=== PATIENT | male | born 1945 | race Caucasian/White ===

== ENCOUNTER 2018-12-18 20:52 | Inpatient (IN) | payer MEDICARE, BC ==
[~2018-12-18] VITALS: Ht 170.2 cm; Wt 71.2 kg
[2018-12-18 23:30] VITALS: BP 111/72
[2018-12-18 23:45] VITALS: BP 112/62
[2018-12-18 23:53] LABS: BASE EXCESS ABG -4 mmol/L (-3-3); HCO3 ABG 20 mmol/L (21-28); PCO2 ABG 34 mmHg (35-46); PO2 ABG 60 mmHg (65-108)
[2018-12-18 23:57] LABS: FIO2 ABG 34
[2018-12-18 23:59] VITALS: BP 119/66
[2018-12-19] VITALS (20 sets, daily range): BP systolic 109–171; BP diastolic 60–86
[2018-12-19] MEDS ORDERED: PIP/TAZO PER PHARMACY MC PRN (00:15)
[2018-12-19] MEDS ORDERED: levOFLOXacin PER PHARMACY. MC PRN (00:15)
--- NOTE | 2018-12-19 00:36 | NUR ---
Patient transferred from [place] ICU to [place] ICU room 105. Arrived via gurney accompanied by two EMT's. 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 Vital signs stable at this time. Family notified of patients admission to hospital. Patient oreitned to call light/ T.V. remote, ICU policies, safety policies. Admission assessment complete, see for details.
[2018-12-19] MEDS: VANCOMYCIN PER PHARMACY MC PRN ×2 (01:03→15:09)
[2018-12-19 01:06] LABS: BASO % 0 % (0-3); EOS % 0 % (0-3); HEMATOCRIT 34.7 % (39.0-53.0); HEMOGLOBIN 11.7 g/dL (13.0-17.5); LYMPH # 0.7 x10^3/uL (1.0-4.8); LYMPH % 12 % (24-48); MEAN CORPUSCULAR HEMOGLOBIN 30 pg (25-35); MEAN CORPUSCULAR HGB CONC 34 g/dL (31-37); MEAN CORPUSCULAR VOLUME 90 fL (79-100); MONO # 0.6 x10^3/uL (0.0-1.1); MONO % 11 % (0-9); NEUT # 4.4 x10^3uL (1.8-7.7); NEUT % 77 % (31-73); PLATELET COUNT 149 x10^3/uL (140-400); RED BLOOD COUNT 3.86 x10^6/uL (4.30-5.70); WHITE BLOOD COUNT 5.8 x10^3/uL (4.0-11.0)
--- NOTE | 2018-12-19 01:13 | NUR ---
Pharmacy Vancomycin Dosing Note S:Consulted to monitor and dose vancomycin started 12/18/18. O:JUANA BARBER is a 73 year old M with Sepsis . Height: 5 feet, 7 inches Weight: 69.761356 kg Friendly Body Weight: 66.10 Adjusted Body Weight: 67.58 Dosing Weight: Actual Other Antibiotics: LEVAQUIN 750MG IV Q24H ZOSYN 4.5GM IV Q8H LABS: Last BUN: 22 LABS FROM [facility] 12/18/18 EVENING Last Creatinine: 1.2 Creatinine Clearance: 52.6 mL/min Last WBC: 7.2 Last Procalcitonin: 0.17 Tmax (past 24 hours): Microbiology: I/O: 1350/30 Drug Levels: Last level: on at Last dose given at Vancomycin Dosing: Loading Dose: 1750MG IV X1 12/18/18 2200 AT [facility] Dosing Weight: Actual Target Trough: 15-20 A: Based on: Actual Wt and CrCl P: 1. 12/19/18 2200 Vancomycin 1000 mg IV q24h 2. Follow up Trough level on 12/20/18 at 2130 3. Pharmacy will continue to monitor, follow and adjust therapy as needed. JO-ANN SU RPH, 12/19/18 0113 Signed: 12/19/18 at 0114 by JO-ANN SU RPH PHA
[2018-12-19 01:29] LABS: ALBUMIN/GLOBULIN RATIO 0.9 (1.0-1.7); CALCIUM 8.5 mg/dL (8.5-10.1); CREATININE 1.7 mg/dL (0.7-1.3); GFR 39.8; POTASSIUM 5.1 mmol/L (3.5-5.1); TOTAL BILIRUBIN 0.5 mg/dL (0.2-1.0); TOTAL PROTEIN 6.4 g/dL (6.4-8.2)
[2018-12-19] MEDS: PIPERACILLIN/TAZOBACTAM 4.5 GM in IV NORMAL SALINE 100ML 100 ML IV SCH ×2 (05:46→13:55)
[2018-12-19] MEDS ORDERED: HYDROmorphone 2 MG/ML VIAL IVP PRN (06:30)
[2018-12-19] MEDS ORDERED: ONDANSETRON PF 4 MG/2 ML VIAL. IV PRN ×2 (06:30→15:15)
[2018-12-19] MEDS ORDERED: PANTOPRAZOLE IV PUSH 40 MG VIAL. IVP SCH (07:30)
[2018-12-19] MEDS: IPRATRPIUM/ALBUTEROL 0.5/2.5MG 3 ML NEBU. NEB SCH ×4 (08:07→20:40)
--- NOTE | 2018-12-19 08:37 | RAD ---
Portable chest, 12/19/2018: HISTORY: Pneumonia Comparison is made to yesterday's study. The heart is at the upper limits of normal in size. There is calcific plaquing the aorta. There is improved aeration of the lung bases. There is persistent mild prominence of the pulmonary markings, particularly in the right base. There is no evidence of pleural fluid. No new abnormality is detected. IMPRESSION: Improved aeration of the lung bases. Electronically signed by: Len Wyatt MD (12/19/2018 8:33 AM) [facility]
[2018-12-19 09:53] LABS: BILIRUBIN,URINE NEGATIVE (NEG); CLARITY,URINE CLEAR; COLOR,URINE YELLOW; NITRITE,URINE NEGATIVE (NEG); PH,URINE 6.5; PROTEIN,URINE NEGATIVE (NEG-TRACE)
[2018-12-19 10:13] LABS: BACTERIA,URINE 0 /HPF (0-FEW); RBC,URINE 0 /HPF (0-2); SQUAMOUS EPITHELIAL CELL,UR OCC /LPF; WBC,URINE 0 /HPF (0-4)
[2018-12-19] MEDS ORDERED: MORP1SYR2 IV (10:14)
[2018-12-19] MEDS ORDERED: POLY2500 PO (10:14)
[2018-12-19] MEDS ORDERED: [UNRECOGNIZED DRUG - CODE] IJ (10:14)
[2018-12-19] MEDS ORDERED: OLAN2.5T3 PO (10:14)
[2018-12-19] MEDS ORDERED: LINZESS145 MCG PO (10:14)
[2018-12-19] MEDS ORDERED: ASPI-612 PO (10:14)
[2018-12-19] MEDS ORDERED: METO25TA4 PO (10:14)
[2018-12-19] MEDS ORDERED: [UNRECOGNIZED DRUG - CODE] IV (10:14)
[2018-12-19] MEDS ORDERED: LACT1CAP2 PO (10:14)
[2018-12-19] MEDS ORDERED: OLAN5TAB3 PO (10:14)
[2018-12-19] MEDS ORDERED: ATOR20TA58 PO (10:14)
[2018-12-19] MEDS ORDERED: LANS30CA PO (10:14)
[2018-12-19] MEDS ORDERED: LISI-334 PO (10:14)
[2018-12-19] MEDS ORDERED: CITA40TA12 PO (10:14)
[2018-12-19] MEDS: DOXYCYCLINE HYCLATE 100 MG TABLET PO SCH ×2 (10:21→20:55)
--- NOTE | 2018-12-19 10:43 | PDOC1 ---
History and Physical Date of Admission Date of Admission DATE: 12/19/18 TIME: 10:43 Identification/Chief Complaint Chief Complaint DIRECT TRANSFER FROM [facility] PUL[facility] STATUS, SEPSIS, PULM AND ID CONSULTS, ICU BED long hx copd became septic and transfr to higher level of care Past Medical History Cardiovascular: HTN, Hyperlipidemia Pulmonary: COPD GI: GERD Psych: Addictions Musculoskeletal: Osteoarthritis Renal/: No pertinent hx Dermatology: No pertinent hx Family History Family History: Alcohol Abuse, High Cholestrol, Hypertension Social History Smoke: Quit ALCOHOL: none Drugs: None, Other (remote alcohol abuse, 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[place]) Current Medications Current Medications Current Medications Sodium Chloride 1,000 ml @ 60 mls/hr [id number] IV Last administered on at 00:00; Start 12/18/18 at 23:45 Piperacillin Sod/ Tazobactam Sod (Zosyn Per Pharmacy) 1 each PRN DAILY PRN MC SEE COMMENTS; Start 12/19/18 at 00:15 Levofloxacin/ Dextrose (Levaquin Per Pharmacy) 1 each PRN DAILY PRN MC SEE COMMENTS; Start 12/19/18 at 00:15 Vancomycin HCl (Vanco Per Pharmacy) 1 each PRN DAILY PRN MC SEE COMMENTS Last administered on 12/19/18at 01:03; Start 12/19/18 at 00:30 Levofloxacin/ Dextrose 150 ml @ 100 mls/hr Q24H IV ; Start 12/19/18 at 19:00; Stop 12/19/18 at 19:00; Status DC Piperacillin Sod/ Tazobactam Sod 4.5 gm/Sodium Chloride 100 ml @ 200 mls/hr Q8HRS IV Last administered on 12/19/18at 05:46; Start 12/19/18 at 06:00 Vancomycin HCl 1 gm/Sodium Chloride 250 ml @ 250 mls/hr Q24H IV ; Start at 22:00 Vancomycin HCl (Vancomycin Trough Level) 1 each 1X ONCE MC ; Start 12/20/18 at 21:30; Stop 12/20/18 at 21:31 Albuterol/ Ipratropium (Duoneb) 3 ml RTQID NEB Last administered on 12/19/18at 08:07; Start 12/19/18 at 08:00 Hydromorphone HCl (Dilaudid) 0.5 mg PRN Q4HRS PRN IVP PAIN; Start 12/19/18 at 06:30 Ondansetron HCl (Zofran) 4 mg PRN Q6HRS PRN IV NAUSEA/VOMITING; Start 12/19/18 at 06:30 Pantoprazole Sodium (PROTONIX VIAL for IV PUSH) 40 mg DAILYAC IVP Last administered on 12/19/18at 08:05; Start 12/19/18 at 07:30 Doxycycline Hyclate (Vibra-Tab) 100 mg BID PO Last administered on 12/19/18at 10 :21; Start 12/19/18 at 09:30 Active Scripts Active Reported Polyethylene Glycol 3350 2,500 Gm Powder 17 Gm PO BIDAC Zyprexa (Olanzapine) 5 Mg Tablet 5 Mg PO DAILY Zyprexa (Olanzapine) 2.5 Mg Tablet 1 Tab PO QHS Morphine 1 mg/2 ml Syringe (Morphine Sulfate/Pf) 1 Mg/2 Ml Syringe 2 Mg IV Q2H Metoprolol Tartrate 25 Mg Tablet 0.5 Tab PO BID Lisinopril 20 Mg Tablet 1 Tab PO DAILY Linzess (Linaclotide) 145 Mcg Capsule 145 Mcg PO DAILY07 Lansoprazole 30 Mg Capsule.dr 30 Mg PO DAILY PRN Acidophilus (Lactobacillus Acidophilus) 1 Each Capsule 1 Each PO BID PRN Heparin 5,000 Unit/1,000 ml-Ns (Heparin Sod,Porcine/0.9 % NaCl) 5,000 Unit/1000 Ml Iv.soln 5,000 Unit IV Q8HRS PRN Lanoxin (Digoxin) 250 Mcg/1 Ml Ampul 250 Mcg IJ PRN Q6HRS PRN Celexa (Citalopram Hydrobromide) 40 Mg Tablet 1 Tab PO DAILY Atorvastatin Calcium 20 Mg Tablet 20 Mg PO HS PRN Aspirin Ec (Aspirin) 81 Mg Tablet.dr 81 Mg PO QODAY Allergies Allergies: Coded Allergies: amlodipine (Verified Allergy, Intermediate, 12/21/18) risperidone (Verified Allergy, Intermediate, 12/21/18) ROS Review of System 14 PT ROS OTHERWISE NEG General: YES: Chills, Fatigue PSYCHOLOGICAL ROS: YES: Anxiety ALLERGY AND IMMUNOLOGY: No: Hives, Insect Bite Sensitivity, Itchy/Watery Eyes, Nasal Congestion, Post Nasal Drip, Seasonal Allergies, Other Hematological and Lymphatic: No: Bleeding Problems, Blood Clots, Blood Transfusions, Brusing, Night Sweats, Pallor, Swollen Lymph Nodes, Other ENDOCRINE: No: Breast Changes, Galactorrhea, Hair Pattern Changes, Hot Flashes , Malaise/lethargy, Mood Swings, Palpitations, Polydipsia/polyuria, Skin Changes , Temperature Intolerance, Unexpected Weight Changes, Other Respiratory: YES: Cough, Shortness of breath, SOB with excertion, Sputum Changes, Wheezing Gastrointestinal: No Nausea, No Vomiting, No Abdominal Pain, No Diarrhea, No Constipation, No Melena, No Hematochezia, No Other Genitourinary: No Dysuria, No Frequency, No Incontinence, No Hematuria, No Retention, No Discharge, No Urgency, No Pain, No Flank Pain, No Other, No , No , No , No , No , No , No Musculoskeletal: Yes Joint Stiffness; No Gait Disturbance, No Joint Pain, No Joint Swelling, No Muscle Pain, No Muscular Weakness, No Pain In:, No Swelling In:, No Other Neurological: No Behavorial Changes, No Bowel/Bladder ControlChng, No Confusion , No Dizziness, No Gait Disturbance, No Headaches, No Impaired Coord/balance, No Memory Loss, No Numbness/Tingling, No Seizures, No Speech Problems, No Tremors, No Visual Changes, No Weakness, No Other Physical Exam General: Alert, Oriented X3, Cooperative, mild distress HEENT: Atraumatic, PERRLA, EOMI Lungs: Other (SCATTERED CRACKLES) Heart: S1S2, RRR, no thrills Breasts: Not examined Abdomen: Normal bowel sounds, Soft Rectal Exam: not examined PELVIC: Examination not indicated Extremities: No cyanosis Neuro: Normal speech, Cranial nerves 3-12 NL Psych/Mental Status: Mental status NL, Mood NL Vitals Vitals Vital Signs Date Time Temp Pulse Resp B/P (MAP) Pulse Ox O2 Delivery O2 Flow Rate FiO2 12/19/18 08:10 95 Nasal Cannula 3.0 12/19/18 08:00 76 166/71 (102) 12/19/18 07:00 97.9 97.9 12/18/18 23:30 26 Labs Labs Laboratory Tests Test 12/18/18 23:49 12/19/18 00:45 12/19/18 09:10 Arterial Blood pH 7.39 (7.35-7.45) Arterial Blood pCO2 at Patient Temp 34 mmHg (35-46) Arterial Blood pO2 at Patient Temp 60 mmHg (65-108) Arterial Blood HCO3 20 mmol/L (21-28) Arterial Blood Base Excess -4 mmol/L (-3-3) FiO2 34 White Blood Count 5.8 x10^3/uL (4.0-11.0) Red Blood Count 3.86 x10^6/uL (4.30-5.70) Hemoglobin 11.7 g/dL (13.0-17.5) Hematocrit 34.7 % (39.0-53.0) Mean Corpuscular Volume 90 fL (79-100) Mean Corpuscular Hemoglobin 30 pg (25-35) Mean Corpuscular Hemoglobin Concent 34 g/dL (31-37) Red Cell Distribution Width 15.0 % (11.5-14.5) Platelet Count 149 x10^3/uL (140-400) Neutrophils (%) (Auto) 77 % (31-73) Lymphocytes (%) (Auto) 12 % (24-48) Monocytes (%) (Auto) 11 % (0-9) Eosinophils (%) (Auto) 0 % (0-3) Basophils (%) (Auto) 0 % (0-3) Neutrophils # (Auto) 4.4 x10^3uL (1.8-7.7) Lymphocytes # (Auto) 0.7 x10^3/uL (1.0-4.8) Monocytes # (Auto) 0.6 x10^3/uL (0.0-1.1) Eosinophils # (Auto) 0.0 x10^3/uL (0.0-0.7) Basophils # (Auto) 0.0 x10^3/uL (0.0-0.2) Sodium Level 134 mmol/L (136-145) Potassium Level 5.1 mmol/L (3.5-5.1) Chloride Level 100 mmol/L (98-107) Carbon Dioxide Level 24 mmol/L (21-32) Anion Gap 10 (6-14) Blood Urea Nitrogen 37 mg/dL (8-26) Creatinine 1.7 mg/dL (0.7-1.3) Estimated GFR (Cockcroft-Gault) 39.8 BUN/Creatinine Ratio 22 (6-20) Glucose Level 87 mg/dL (70-99) Lactic Acid Level 1.0 mmol/L (0.4-2.0) Calcium Level 8.5 mg/dL (8.5-10.1) Total Bilirubin 0.5 mg/dL (0.2-1.0) Aspartate Amino Transf (AST/SGOT) 17 U/L (15-37) Alanine Aminotransferase (ALT/SGPT) 18 U/L (16-63) Alkaline Phosphatase 80 U/L (46-116) Total Protein 6.4 g/dL (6.4-8.2) Albumin 3.0 g/dL (3.4-5.0) Albumin/Globulin Ratio 0.9 (1.0-1.7) Urine Collection Type Unknown Urine Color Yellow Urine Clarity Clear Urine pH 6.5 Urine Specific [place] 1.015 Urine Protein Negative mg/dL (NEG-TRACE) Urine Glucose (UA) Negative mg/dL (NEG) Urine Ketones (Stick) Negative mg/dL (NEG) Urine Blood Negative (NEG) Urine Nitrite Negative (NEG) Urine Bilirubin Negative (NEG) Urine Urobilinogen Dipstick 1.0 mg/dL (0.2 mg/dL) Urine Leukocyte Esterase Negative (NEG) Urine RBC 0 /HPF (0-2) Urine WBC 0 /HPF (0-4) Urine Squamous Epithelial Cells Occ /LPF Urine Bacteria 0 /HPF (0-FEW) Laboratory Tests Test 12/18/18 23:49 12/19/18 00:45 12/19/18 09:10 Arterial Blood pH 7.39 (7.35-7.45) Arterial Blood pCO2 at Patient Temp 34 mmHg (35-46) Arterial Blood pO2 at Patient Temp 60 mmHg (65-108) Arterial Blood HCO3 20 mmol/L (21-28) Arterial Blood Base Excess -4 mmol/L (-3-3) FiO2 34 White Blood Count 5.8 x10^3/uL (4.0-11.0) Red Blood Count 3.86 x10^6/uL (4.30-5.70) Hemoglobin 11.7 g/dL (13.0-17.5) Hematocrit 34.7 % (39.0-53.0) Mean Corpuscular Volume 90 fL (79-100) Mean Corpuscular Hemoglobin 30 pg (25-35) Mean Corpuscular Hemoglobin Concent 34 g/dL (31-37) Red Cell Distribution Width 15.0 % (11.5-14.5) Platelet Count 149 x10^3/uL (140-400) Neutrophils (%) (Auto) 77 % (31-73) Lymphocytes (%) (Auto) 12 % (24-48) Monocytes (%) (Auto) 11 % (0-9) Eosinophils (%) (Auto) 0 % (0-3) Basophils (%) (Auto) 0 % (0-3) Neutrophils # (Auto) 4.4 x10^3uL (1.8-7.7) Lymphocytes # (Auto) 0.7 x10^3/uL (1.0-4.8) Monocytes # (Auto) 0.6 x10^3/uL (0.0-1.1) Eosinophils # (Auto) 0.0 x10^3/uL (0.0-0.7) Basophils # (Auto) 0.0 x10^3/uL (0.0-0.2) Sodium Level 134 mmol/L (136-145) Potassium Level 5.1 mmol/L (3.5-5.1) Chloride Level 100 mmol/L (98-107) Carbon Dioxide Level 24 mmol/L (21-32) Anion Gap 10 (6-14) Blood Urea Nitrogen 37 mg/dL (8-26) Creatinine 1.7 mg/dL (0.7-1.3) Estimated GFR (Cockcroft-Gault) 39.8 BUN/Creatinine Ratio 22 (6-20) Glucose Level 87 mg/dL (70-99) Lactic Acid Level 1.0 mmol/L (0.4-2.0) Calcium Level 8.5 mg/dL (8.5-10.1) Total Bilirubin 0.5 mg/dL (0.2-1.0) Aspartate Amino Transf (AST/SGOT) 17 U/L (15-37) Alanine Aminotransferase (ALT/SGPT) 18 U/L (16-63) Alkaline Phosphatase 80 U/L (46-116) Total Protein 6.4 g/dL (6.4-8.2) Albumin 3.0 g/dL (3.4-5.0) Albumin/Globulin Ratio 0.9 (1.0-1.7) Urine Collection Type Unknown Urine Color Yellow Urine Clarity Clear Urine pH 6.5 Urine Specific [place] 1.015 Urine Protein Negative mg/dL (NEG-TRACE) Urine Glucose (UA) Negative mg/dL (NEG) Urine Ketones (Stick) Negative mg/dL (NEG) Urine Blood Negative (NEG) Urine Nitrite Negative (NEG) Urine Bilirubin Negative (NEG) Urine Urobilinogen Dipstick 1.0 mg/dL (0.2 mg/dL) Urine Leukocyte Esterase Negative (NEG) Urine RBC 0 /HPF (0-2) Urine WBC 0 /HPF (0-4) Urine Squamous Epithelial Cells Occ /LPF Urine Bacteria 0 /HPF (0-FEW) Images Images Video dysphasia study, 12/20/2018: History: Dysphasia The swallowing mechanism was examined fluoroscopically in the lateral projection with the patient ingested a variety of food materials mixed with barium. 1.2 minutes of fluoroscopy time was utilized. One video fluoroscopic loop was recorded by a member of the speech Department. When ingesting the thin liquid barium, the nectar consistency material and the honey thickened material there was a delay in initiation of pharyngeal peristalsis with laryngeal penetration and mild intermittent odin aspiration. There was also mild delayed laryngeal penetration and aspiration related to vallecular and piriform sinus residue. IMPRESSION: Disordered swallowing mechanism with aspiration as described above. DICTATED and SIGNED BY: LEN DIAS MD DATE: 12/20/181122 PATIENT: ODIN BARBER ACCT: [id number] LOC: [address] [place] [address] U : [id number] AGE/SX: 73/M ROOM: 526 REG : 12/18/[address]: RAMOS HERNANDEZ MD : 1945 BED: 1 DIS : STATUS: ADM IN TLOC: SPEC #: [id number] EL: 12/19/18 STATUS: RES REQ #: [id number] RECD: 12/19/[address] [facility] [address]: RAMOS HERNANDEZ MD SOURCE: BLOOD ENTR: 12/19/[address] [facility] [address]: NICKOLAS GARZON MD [facility]: TALAT PAGAN MD, SABATO MD ORDERED: BCULT Procedure Result BLOOD CULTURE Preliminary NO GROWTH AFTER 1 DAY SEX: M EXAM STATUS: ADM IN ORD. PHYSICIAN: RAMOS HERNANDEZ MD REASON: pneumonia PROCEDURE: PORTABLE CHEST 1V Portable chest, 12/19/2018: HISTORY: Pneumonia Comparison is made to yesterday's study. The heart is at the upper limits of normal in size. There is calcific plaquing the aorta. There is improved aeration of the lung bases. There is persistent mild prominence of the pulmonary markings, particularly in the right base. There is no evidence of pleural fluid. No new abnormality is detected. IMPRESSION: Improved aeration of the lung bases. Electronically signed by: Len Dias MD (12/19/2018 8:33 AM) [facility] DICTATED and SIGNED BY: LEN DIAS MD DATE: 12/19/18 0833 VTE Prophylaxis Ordered VTE Prophylaxis Devices: Yes VTE Pharmacological Prophylaxi: Yes Assessment/Plan Assessment/Plan IMPRESSION 1. RECURRENT ASPIRATION PNEUMONIA Disordered swallowing mechanism with aspiration persistent mild prominence of the pulmonary markings, particularly in the right base. 2. COPD 3. HX BENNETT'S esophagus 4. REMOTE ALCOHOL ABUSE 5. SEPSIS 6. WEAKNESS 7. Remote tobacco abuse 8. acute hypoxic resp failure plan iv antibiotics, add iv vanc, ZOSYN, LEVAQUIN ID CONSULT PULM CONSULT ASPIRATION PRECAUTIONS ICU BED DVT PROPHYLAXIS BLOOD AND SPUTUM CULTURES O2 SUPPORT speech therapy PT/OT 35 MIN CC TIME RAMOS HERNANDEZ MD Dec 19, 2018 10:43
--- NOTE | 2018-12-19 10:49 | PDOC ---
PULMONARY PROGRESS NOTES Vitals Vital Signs Date Time Temp Pulse Resp B/P (MAP) Pulse Ox O2 Delivery O2 Flow Rate FiO2 12/19/18 08:10 95 Nasal Cannula 3.0 12/19/18 08:00 76 166/71 (102) 12/19/18 07:00 97.9 97.9 12/18/18 23:30 26 Labs Laboratory Tests Test 12/18/18 23:49 12/19/18 00:45 12/19/18 09:10 Arterial Blood pH 7.39 (7.35-7.45) Arterial Blood pCO2 at Patient Temp 34 mmHg (35-46) Arterial Blood pO2 at Patient Temp 60 mmHg (65-108) Arterial Blood HCO3 20 mmol/L (21-28) Arterial Blood Base Excess -4 mmol/L (-3-3) FiO2 34 White Blood Count 5.8 x10^3/uL (4.0-11.0) Red Blood Count 3.86 x10^6/uL (4.30-5.70) Hemoglobin 11.7 g/dL (13.0-17.5) Hematocrit 34.7 % (39.0-53.0) Mean Corpuscular Volume 90 fL (79-100) Mean Corpuscular Hemoglobin 30 pg (25-35) Mean Corpuscular Hemoglobin Concent 34 g/dL (31-37) Red Cell Distribution Width 15.0 % (11.5-14.5) Platelet Count 149 x10^3/uL (140-400) Neutrophils (%) (Auto) 77 % (31-73) Lymphocytes (%) (Auto) 12 % (24-48) Monocytes (%) (Auto) 11 % (0-9) Eosinophils (%) (Auto) 0 % (0-3) Basophils (%) (Auto) 0 % (0-3) Neutrophils # (Auto) 4.4 x10^3uL (1.8-7.7) Lymphocytes # (Auto) 0.7 x10^3/uL (1.0-4.8) Monocytes # (Auto) 0.6 x10^3/uL (0.0-1.1) Eosinophils # (Auto) 0.0 x10^3/uL (0.0-0.7) Basophils # (Auto) 0.0 x10^3/uL (0.0-0.2) Sodium Level 134 mmol/L (136-145) Potassium Level 5.1 mmol/L (3.5-5.1) Chloride Level 100 mmol/L (98-107) Carbon Dioxide Level 24 mmol/L (21-32) Anion Gap 10 (6-14) Blood Urea Nitrogen 37 mg/dL (8-26) Creatinine 1.7 mg/dL (0.7-1.3) Estimated GFR (Cockcroft-Gault) 39.8 BUN/Creatinine Ratio 22 (6-20) Glucose Level 87 mg/dL (70-99) Lactic Acid Level 1.0 mmol/L (0.4-2.0) Calcium Level 8.5 mg/dL (8.5-10.1) Total Bilirubin 0.5 mg/dL (0.2-1.0) Aspartate Amino Transf (AST/SGOT) 17 U/L (15-37) Alanine Aminotransferase (ALT/SGPT) 18 U/L (16-63) Alkaline Phosphatase 80 U/L (46-116) Total Protein 6.4 g/dL (6.4-8.2) Albumin 3.0 g/dL (3.4-5.0) Albumin/Globulin Ratio 0.9 (1.0-1.7) Urine Collection Type Unknown Urine Color Yellow Urine Clarity Clear Urine pH 6.5 Urine Specific [place] 1.015 Urine Protein Negative mg/dL (NEG-TRACE) Urine Glucose (UA) Negative mg/dL (NEG) Urine Ketones (Stick) Negative mg/dL (NEG) Urine Blood Negative (NEG) Urine Nitrite Negative (NEG) Urine Bilirubin Negative (NEG) Urine Urobilinogen Dipstick 1.0 mg/dL (0.2 mg/dL) Urine Leukocyte Esterase Negative (NEG) Urine RBC 0 /HPF (0-2) Urine WBC 0 /HPF (0-4) Urine Squamous Epithelial Cells Occ /LPF Urine Bacteria 0 /HPF (0-FEW) Laboratory Tests Test 12/18/18 23:49 12/19/18 00:45 12/19/18 09:10 Arterial Blood pH 7.39 (7.35-7.45) Arterial Blood pCO2 at Patient Temp 34 mmHg (35-46) Arterial Blood pO2 at Patient Temp 60 mmHg (65-108) Arterial Blood HCO3 20 mmol/L (21-28) Arterial Blood Base Excess -4 mmol/L (-3-3) FiO2 34 White Blood Count 5.8 x10^3/uL (4.0-11.0) Red Blood Count 3.86 x10^6/uL (4.30-5.70) Hemoglobin 11.7 g/dL (13.0-17.5) Hematocrit 34.7 % (39.0-53.0) Mean Corpuscular Volume 90 fL (79-100) Mean Corpuscular Hemoglobin 30 pg (25-35) Mean Corpuscular Hemoglobin Concent 34 g/dL (31-37) Red Cell Distribution Width 15.0 % (11.5-14.5) Platelet Count 149 x10^3/uL (140-400) Neutrophils (%) (Auto) 77 % (31-73) Lymphocytes (%) (Auto) 12 % (24-48) Monocytes (%) (Auto) 11 % (0-9) Eosinophils (%) (Auto) 0 % (0-3) Basophils (%) (Auto) 0 % (0-3) Neutrophils # (Auto) 4.4 x10^3uL (1.8-7.7) Lymphocytes # (Auto) 0.7 x10^3/uL (1.0-4.8) Monocytes # (Auto) 0.6 x10^3/uL (0.0-1.1) Eosinophils # (Auto) 0.0 x10^3/uL (0.0-0.7) Basophils # (Auto) 0.0 x10^3/uL (0.0-0.2) Sodium Level 134 mmol/L (136-145) Potassium Level 5.1 mmol/L (3.5-5.1) Chloride Level 100 mmol/L (98-107) Carbon Dioxide Level 24 mmol/L (21-32) Anion Gap 10 (6-14) Blood Urea Nitrogen 37 mg/dL (8-26) Creatinine 1.7 mg/dL (0.7-1.3) Estimated GFR (Cockcroft-Gault) 39.8 BUN/Creatinine Ratio 22 (6-20) Glucose Level 87 mg/dL (70-99) Lactic Acid Level 1.0 mmol/L (0.4-2.0) Calcium Level 8.5 mg/dL (8.5-10.1) Total Bilirubin 0.5 mg/dL (0.2-1.0) Aspartate Amino Transf (AST/SGOT) 17 U/L (15-37) Alanine Aminotransferase (ALT/SGPT) 18 U/L (16-63) Alkaline Phosphatase 80 U/L (46-116) Total Protein 6.4 g/dL (6.4-8.2) Albumin 3.0 g/dL (3.4-5.0) Albumin/Globulin Ratio 0.9 (1.0-1.7) Urine Collection Type Unknown Urine Color Yellow Urine Clarity Clear Urine pH 6.5 Urine Specific [place] 1.015 Urine Protein Negative mg/dL (NEG-TRACE) Urine Glucose (UA) Negative mg/dL (NEG) Urine Ketones (Stick) Negative mg/dL (NEG) Urine Blood Negative (NEG) Urine Nitrite Negative (NEG) Urine Bilirubin Negative (NEG) Urine Urobilinogen Dipstick 1.0 mg/dL (0.2 mg/dL) Urine Leukocyte Esterase Negative (NEG) Urine RBC 0 /HPF (0-2) Urine WBC 0 /HPF (0-4) Urine Squamous Epithelial Cells Occ /LPF Urine Bacteria 0 /HPF (0-FEW) Medications Active Scripts Medications Dose Route/Sig Max Daily Dose Days Date Category Polyethylene Glycol 3350 2,500 Gm Powder 17 Gm PO BIDAC 12/19/18 Reported Zyprexa (Olanzapine) 5 Mg Tablet 5 Mg PO DAILY 12/19/18 Reported Zyprexa (Olanzapine) 2.5 Mg Tablet 1 Tab PO QHS 12/19/18 Reported Morphine 1 mg/2 ml Syringe (Morphine Sulfate/Pf) 1 Mg/2 Ml Syringe 2 Mg IV Q2H 12/19/18 Reported Metoprolol Tartrate 25 Mg Tablet 0.5 Tab PO BID 12/19/18 Reported Lisinopril 20 Mg Tablet 1 Tab PO DAILY 12/19/18 Reported Linzess (Linaclotide) 145 Mcg Capsule 145 Mcg PO DAILY07 12/19/18 Reported Lansoprazole 30 Mg Capsule.dr 30 Mg PO DAILY PRN 12/19/18 Reported Acidophilus (Lactobacillus Acidophilus) 1 Each Capsule 1 Each PO BID PRN 12/19/18 Reported Heparin 5,000 Unit/1,000 ml-Ns (Heparin Sod,Porcine/0.9 % NaCl) 5,000 Unit/1000 Ml Iv.soln 5,000 Unit IV Q8HRS PRN 12/19/18 Reported Lanoxin (Digoxin) 250 Mcg/1 Ml Ampul 250 Mcg IJ PRN Q6HRS PRN 12/19/18 Reported Celexa (Citalopram Hydrobromide) 40 Mg Tablet 1 Tab PO DAILY 12/19/18 Reported Atorvastatin Calcium 20 Mg Tablet 20 Mg PO HS PRN 12/19/18 Reported Aspirin Ec (Aspirin) 81 Mg Tablet. 81 Mg PO QODAY 12/19/18 Reported Impression . FULL CONSULT DICTATED SEE ORDERS D/W RN AND ACUTE/CHRONIC ASPIRATION THANKS KIYA JOHNSON MD Dec 19, 2018 10:49
--- NOTE | 2018-12-19 11:19 | NUR ---
SS following for discharge planning. SS reviewed pt chart. Pt is from home with spouse and is currently requiring oxygen. No discharge needs noted at this time. SS will continue to follow for pending discharge needs.
[2018-12-19] MEDS: ENOXAPARIN 40 MG/0.4 ML SYRINGE. SQ SCH (12:03)
[2018-12-19] MEDS ORDERED: DIGOXIN IV 500 MCG/2 ML AMPUL. IV PRN (13:30)
--- NOTE | 2018-12-19 13:45 | NUR ---
spoke with to bring patient's home meds in so we could give him his medications that we do not carry. acceptable.
[2018-12-19] MEDS ORDERED: CITALOPRAM 20 MG TABLET. PO SCH (14:30)
--- NOTE | 2018-12-19 14:38 | NUR ---
Transportation notified of patient transfer to
[2018-12-19] MEDS ORDERED: DOCUSATE SODIUM 100 MG CAPSULE. PO PRN (15:15)
[2018-12-19] MEDS ORDERED: cloNIDine HCL 0.1 MG TABLET PO PRN (15:15)
[2018-12-19] MEDS ORDERED: LORazepam 0.5 MG TABLET PO PRN (15:15)
[2018-12-19] MEDS ORDERED: ZOLPIDEM 5 MG TABLET. PO PRN (15:15)
[2018-12-19] MEDS ORDERED: SODIUM PHOSPHATES 19/7GM 133 ML ENEMA. PR PRN (15:15)
[2018-12-19] MEDS ORDERED: POLYETHYLENE GLYCOL 3350 17 GM PACKET. PO SCH (16:30)
--- NOTE | 2018-12-19 16:43 | PDOC2 ---
GI CONSULT Reason For Consult: Pastrana's, recurrent aspiration HPI: HPI: 73 y/o male transferred from [facility] overnight w/ concern for worsening pneumonia. H/o tongue cancer s/p radiation in 2004. Had a PEG tube at that time that was removed (?fell out). Years later, worsening issues w/ dysphagia and aspiration , PEG replaced in 2013 or 2014. GI-hendrickson, follows w/ Dr. Otoole @ [facility]. Currently has a NELSON-PRESLEY button - thinks was placed sometime last year, is functioning though the cap might be about to fall off. Weight is stable w/ NELSON- PRESLEY feeds - however, he also drinks coffee. At first was doing it in secret, now Lanny is aware. 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 He reports a h/o IBS-C improved w/ Linzess 145mcg QD + Miralax BID - says 4-[address] A/P 12/18/18: moderate colonic stool content, opacities in the lower lobes bilaterally - pneumonia vs aspiration, gastrostomy tube tip within the stomach body, coronary artery calcifications. Also noted high density material within the gallbladder - gallstones vs vicarious excretion of contrast material. Thinks last colonoscopy was performed in 08/2016 @ [facility] and revealed polyps - says he's due for screening in 08/2019. Denies GB, liver, pancreas, or PUD history. No NSAIDs. Takes ASA QOD. He denies odynophagia, n/v, diarrhea, hematochezia, and melena. Outside records list h/o gastroparesis which he and his did not mention. After leaving the room, his supplemented history more - he has been obsessed with bowel function and sees a psychiatrist for this reason. He also apparently complains of abdominal pain all the time and says that he can feel tube feedings in his chest and "outside his body." PMH: PMH: tongue cancer s/p chemo and radiation, carotid stenosis, ?CAD, HLD, HTN, emphysema/COPD, pneumonia, Pastrana's esophagus, IBS, OA, pelvic fracture, osteopenia, DDDpsych issues including schizophrenia, bipolar, panic, OCD, and depression carotid endarterectomy, hand surgery, G-tube placement, inguinal hernia repair FH: Family History: No pertinent hx Social History: Smoke: Quit ALCOHOL: other (perhaps heavily while in the , none now) Drugs: None, Other (remote alcohol abuse, 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[place]) ROS: GEN: Denies fevers, chills, sweats HEENT: Denies blurred vision, sore throat CV: Denies chest pain RESP: Denies shortness of air, cough GI: Per HPI : Denies hematuria, dysuria ENDO: Denies weight changes NEURO: Denies confusion, dizziness MSK: Denies weakness, joint pain/swelling SKIN: Denies jaundice, pruritus Vitals: Vitals: Vital Signs Date Time Temp Pulse Resp B/P (MAP) Pulse Ox O2 Delivery O2 Flow Rate FiO2 12/19/18 15:00 20 4 155/79 (104) 93 Nasal Cannula 12/19/18 14:00 4.0 12/19/18 12:00 98.2 98.2 Labs: Labs: Laboratory Tests Test 12/18/18 23:49 12/19/18 00:45 12/19/18 09:10 O2 Saturation % (92-99) Arterial Blood pH 7.39 (7.35-7.45) Arterial Blood pCO2 at Patient Temp 34 mmHg (35-46) Arterial Blood pO2 at Patient Temp 60 mmHg (65-108) Arterial Blood HCO3 20 mmol/L (21-28) Arterial Blood Base Excess -4 mmol/L (-3-3) FiO2 34 White Blood Count 5.8 x10^3/uL (4.0-11.0) Red Blood Count 3.86 x10^6/uL (4.30-5.70) Hemoglobin 11.7 g/dL (13.0-17.5) Hematocrit 34.7 % (39.0-53.0) Mean Corpuscular Volume 90 fL (79-100) Mean Corpuscular Hemoglobin 30 pg (25-35) Mean Corpuscular Hemoglobin Concent 34 g/dL (31-37) Red Cell Distribution Width 15.0 % (11.5-14.5) Platelet Count 149 x10^3/uL (140-400) Neutrophils (%) (Auto) 77 % (31-73) Lymphocytes (%) (Auto) 12 % (24-48) Monocytes (%) (Auto) 11 % (0-9) Eosinophils (%) (Auto) 0 % (0-3) Basophils (%) (Auto) 0 % (0-3) Neutrophils # (Auto) 4.4 x10^3uL (1.8-7.7) Lymphocytes # (Auto) 0.7 x10^3/uL (1.0-4.8) Monocytes # (Auto) 0.6 x10^3/uL (0.0-1.1) Eosinophils # (Auto) 0.0 x10^3/uL (0.0-0.7) Basophils # (Auto) 0.0 x10^3/uL (0.0-0.2) Sodium Level 134 mmol/L (136-145) Potassium Level 5.1 mmol/L (3.5-5.1) Chloride Level 100 mmol/L (98-107) Carbon Dioxide Level 24 mmol/L (21-32) Anion Gap 10 (6-14) Blood Urea Nitrogen 37 mg/dL (8-26) Creatinine 1.7 mg/dL (0.7-1.3) Estimated GFR (Cockcroft-Gault) 39.8 BUN/Creatinine Ratio 22 (6-20) Glucose Level 87 mg/dL (70-99) Lactic Acid Level 1.0 mmol/L (0.4-2.0) Calcium Level 8.5 mg/dL (8.5-10.1) Total Bilirubin 0.5 mg/dL (0.2-1.0) Aspartate Amino Transf (AST/SGOT) 17 U/L (15-37) Alanine Aminotransferase (ALT/SGPT) 18 U/L (16-63) Alkaline Phosphatase 80 U/L (46-116) Total Protein 6.4 g/dL (6.4-8.2) Albumin 3.0 g/dL (3.4-5.0) Albumin/Globulin Ratio 0.9 (1.0-1.7) Urine Collection Type Unknown Urine Color Yellow Urine Clarity Clear Urine pH 6.5 Urine Specific [place] 1.015 Urine Protein Negative mg/dL (NEG-TRACE) Urine Glucose (UA) Negative mg/dL (NEG) Urine Ketones (Stick) Negative mg/dL (NEG) Urine Blood Negative (NEG) Urine Nitrite Negative (NEG) Urine Bilirubin Negative (NEG) Urine Urobilinogen Dipstick 1.0 mg/dL (0.2 mg/dL) Urine Leukocyte Esterase Negative (NEG) Urine RBC 0 /HPF (0-2) Urine WBC 0 /HPF (0-4) Urine Squamous Epithelial Cells Occ /LPF Urine Bacteria 0 /HPF (0-FEW) Allergies: Coded Allergies: amlodipine (Verified Allergy, Unknown, 12/18/18) risperidone (Verified Allergy, Unknown, 12/18/18) Medications: Current Medications Medications (Trade) Dose Ordered Sig/Héctor Route PRN Reason Start Time Stop Time Status Last Admin Dose Admin Sodium Chloride 1,000 ml @ 60 mls/hr [id number] IV 12/18/18 23:45 12/19/18 00:00 Vancomycin HCl (Vanco Per Pharmacy) 1 each PRN DAILY PRN MC SEE COMMENTS 12/19/18 00:30 12/19/18 15:09 Piperacillin Sod/ Tazobactam Sod 4.5 gm/Sodium Chloride 100 ml @ 200 mls/hr Q8HRS IV 12/19/18 06:00 12/19/18 15:05 DC 12/19/18 13:55 Albuterol/ Ipratropium (Duoneb) 3 ml RTQID NEB 12/19/18 08:00 12/19/18 12:09 Pantoprazole Sodium (PROTONIX VIAL for IV PUSH) 40 mg DAILYAC IVP 12/19/18 07:30 12/19/18 14:26 DC 12/19/18 08:05 Doxycycline Hyclate (Vibra-Tab) 100 mg BID PO 12/19/18 09:30 12/19/18 10:21 Enoxaparin Sodium (Lovenox 40mg Syringe) 40 mg Q24H SQ 12/19/18 11:00 12/19/18 12:03 Imaging: Imaging: CXR IMPRESSION: Improved aeration of the lung bases. PE: GEN: NAD HEENT: Atraumatic, PERRL LUNGS: wheezing anteriorly, tight, NC, deep cough HEART: RRR ABD: soft, non-tender, BS+, NELSON-PRESLEY left side EXTREMITY: No edema SKIN: No rashes, no jaundice NEURO/PSYCH: A & O 3, tremor, seems forgetful and anxious A/P: A/P: Recurrent pneumonia - h/o aspiration H/o tongue cancer s/p radiation w/ dysphagia - NELSON-PRESLEY in place ---> non- compliant, drinks coffee H/o Pastrana's esophagus - last EGD for NELSON-PRESLEY placement @ [facility] in 2018, on PPI QD CRC screen, h/o polyps - UTD (last reportedly in 08/2016 @ [facility]) IBS-C - controlled w/ Linzess and Miralax Psych issues - focuses on GI issues (stooling and tube feeds) Normocytic anemia, ESTRELLA -- Note plans for [facility] eval. Encouraged compliance w/ their recommendations. Continue regular GI meds. Okay to use NELSON-PRESLEY as usual. LOUIE SHARP Dec 19, 2018 16:43
[2018-12-19] MEDS: LISINOPRIL 20 MG TABLET PO SCH (17:08)
[2018-12-19] MEDS: LANSOPRAZOLE 30 MG TAB.RAP.DR FT SCH (17:09)
[2018-12-19] MEDS: ASPIRIN ENTERIC COATED 81 MG TABLET.DR. PO SCH (17:09)
[2018-12-19] MEDS: SPIRONOLACTONE 25 MG TABLET PO SCH (17:10)
[2018-12-19] MEDS: POLYETHYLENE GLYCOL 3350 17 GM PACKET. PO SCH (17:10)
[2018-12-19] MEDS: IV NORMAL SALINE 1000ML BAG 1,000 ML IV SCH ×2 (17:11)
[2018-12-19] MEDS: Linaclotide (Linzess) 145 MCG PO SCH (17:11)
[2018-12-19] MEDS: PIPERACILLIN/TAZOBACTAM 3.375 GM in IV NORMAL SALINE 50ML 50 ML IV SCH (20:54)
[2018-12-19] MEDS: LACTOBACILLUS RHAMNOSUS GG 1 CAPSULE. PO SCH (20:54)
[2018-12-19] MEDS: OLANZapine 2.5 MG TABLET PO SCH (20:55)
[2018-12-19] MEDS: METOPROLOL TART IMMED RELEASE 25 MG TABLET. PO SCH (20:55)
[2018-12-19] MEDS: ATORVASTATIN CALCIUM 20 MG TABLET PO SCH (20:55)
[2018-12-19] MEDS: VANCOMYCIN 1 GM in IV NORMAL SALINE 250ML 250 ML IV SCH (20:56)
--- NOTE | 2018-12-19 23:02 | CONS ---
DATE OF CONSULTATION: 12/19/2018 REFERRING PHYSICIAN: Dr. Jauregui. REASON FOR CONSULTATION: Sepsis. HISTORY OF PRESENT ILLNESS: This is a 72-year-old male who was transferred from [facility] where he presented on 12/17/2018 with abdominal pain, not feeling well. The patient's white count was normal. He was given empiric IV vancomycin, Zosyn and Levaquin. He was admitted to ICU. I do not have any HPI or any other records from there. He also had some cough, underwent CTA as his D-dimer was high with cough and it showed no evidence of central pulmonary emboli, calcified plaquing of the aorta and coronary arteries, borderline mediastinal and hilar adenopathy, moderate right lower lobe infiltrate similar to the one seen on 10/22/2018 suggesting recurrent pneumonia versus chronic lung disease and cholelithiasis. The patient also had a CT of the abdomen and pelvis without contrast due to abdominal pain to rule out obstruction, which showed moderate colonic stool content, no evidence of bowel obstruction, opacities in the lower lobes bilaterally possibly consolidative process such as pneumonia or aspiration could give similar appearance. Gastrostomy tube tip is seen in the body of the stomach, coronary artery calcification, no free air loculated. Fluid collection is seen. No abdominal or pelvic ascites. The patient was given empiric IV vancomycin, Zosyn and Levaquin. Yesterday, his temperature went up to 101.5, so he was transferred to [facility] for further evaluation and treatment. His creatinine on 12/18/2018 was 1.2, BUN of 22. LFTs were within normal limits. BNP was 2384. Procalcitonin was 0.17. WBC was 5.7. Lactate was 1.0. UA is not available. Today, the patient states he still continues to have abdominal pain, mainly all over. He has some nausea. He does self-catheterization for a couple of years for neurogenic bladder 4 times a day and denies any dysuria or hematuria. Denies any chest pain. Denies headache, sore throat, sick contact. PAST MEDICAL HISTORY: Cancer of tongue; Mooney's palsy; dementia; coronary artery disease; carotid stenosis; carotid endarterectomy; hyperlipidemia; emphysema; history of recurrent pneumonia and gastroparesis, status post PEG; anorexia; Pastrana's esophagus; irritable bowel syndrome; GERD; incontinence; urinary retention, status post self-catheterization. Multiple admissions to psychiatric hospital in the past for schizophrenia, bipolar disorder, panic disorder, obsessive compulsive disorder, depression, multiple suicide attempts, anemia. ALLERGIES: AMLODIPINE, RISPERIDONE. SOCIAL HISTORY: Used to smoke and alcohol none recently. CURRENT MEDICATIONS: Vancomycin, Levaquin and Zosyn. Other medications reviewed in medication list. REVIEW OF SYSTEMS: Negative except for above in HPI. PHYSICAL EXAMINATION: VITAL SIGNS: Temperature 97.8, T-max 99.6, pulse 69, respiratory rate 18, blood pressure 157/84, oxygen saturation 95% on 3 liters oxygen. GENERAL: Alert, oriented x 3 male lying in bed in no acute distress. HEENT: Normocephalic, atraumatic, slight restriction in speech because of tongue surgery. No icterus. No thrush. NECK: Supple. LUNGS: Decreased breath sounds at bases. HEART: S1, S2. No rubs, gallops, or murmurs. ABDOMEN: Soft, mildly distended. PEG tube site looks okay. No evidence of infection. There is a small abdominal wall hematoma on the right upper quadrant, mildly tender. No fluctuance. No masses felt. No rebound, no guarding. EXTREMITIES: No edema, no cyanosis. NEUROLOGIC: Alert and oriented x 3. Grossly nonfocal. LABORATORY DATA: WBC 5.8, hemoglobin 11.7, hematocrit 34.7, platelets 149, neutrophils 77%. Sodium 134, potassium 5.1, chloride 100, bicarbonate 24, BUN 37, creatinine 1.7, lactate 1.0. LFTs within normal limits. Albumin 3.0. IMAGIN. Chest x-ray done, reading pending at this time. 2. CTA chest at outside hospital as above. 3. CT abdomen and pelvis without contrast at outside hospital as above. IMPRESSION: 1. Fever at outside hospital prior to admission at [facility]. 2. Abdominal pain. 3.Renal insufficiency 4. Right lung infiltrate. 5. History of cancer of the tongue. 6. History of urinary retention, status post self-catheterization. UA pending here, not done at outside hospital. 7. History of bipolar disorder, panic disorder, obsessive compulsive disorder, depression. 8. History of gastroparesis, anorexia, Pastrana's esophagus, status post PEG tube placement. RECOMMENDATIONS: 1. Continue empiric Zosyn and IV vancomycin.Monitor renal functions closely 2. Follow up cultures at [facility]. 3. Obtain UA. Discussed with RN and sent for cultures. 4. Send sputum for cultures. 5. Add empiric doxycycline. 6. Monitor right upper quadrant closely. 7. Follow up labs in a.m. and cultures. 8. Continue supportive care. KATIE YOON MD DR: RICKY/kirsten JOB#: [id number] / [id number] DARIO
[2018-12-20] MEDS: PIPERACILLIN/TAZOBACTAM 3.375 GM in IV NORMAL SALINE 50ML 50 ML IV SCH ×4 (00:06→18:06)
--- NOTE | 2018-12-20 01:10 | NUR ---
RN NOTE: 1700 Zosyn was running at shift change but not scanned. Scanned bag during the 1999 medication pass.
--- NOTE | 2018-12-20 01:21 | CONS ---
DATE OF CONSULTATION: 12/19/2018 ATTENDING PHYSICIAN: Dr. Jauregui. CONSULTING PHYSICIAN: Dr. Kiya Alvarez. REASON FOR CONSULTATION: The patient seen in pulmonary consultation at the request of Dr. Jauregui for increasing shortness of air, abnormal CT chest. HISTORY OF PRESENT ILLNESS: The patient is a 73-year-old that had tongue cancer, underwent chemoradiation back in 2004. He has chronic PEG tube placement. He has had previous evaluation and has dysphagia. He has had previous chronic aspiration. Over the last several months, he has been admitted to [facility] and was treated for pneumonia back in September. Yesterday, he represented to Dr. Desouza with increasing shortness of breath, cough, wheezing; cough mostly nonproductive, no hemoptysis. He was evaluated and underwent CT chest with PE protocol. I reviewed the CT. There was no evidence of pulmonary embolism. There were ongoing opacities in the right lower lobe. There was some borderline mediastinal hilar adenopathy. He also has some cholelithiasis. The patient was transferred to [facility] for further evaluation and management. He is currently on oxygen supplementation. At home, he utilizes no oxygen. He has no metered dose inhalers and nebulized treatments. He has quit tobacco in 2004. The patient states that he is active and he was able to walk his dog last year, doing good weather over the winter months. His level of activity is decreased. PAST MEDICAL HISTORY: Remarkable for: 1. Tongue cancer as described above, status post chemoradiation in 2004. 2. Dysphagia, status post PEG tube placement. The patient is supposed to be n.p.o., his states that he intermittently does drink some coffee. 3. History of Mooney's palsy. 4. Carotid stenosis. 5. Carotid endarterectomy. 6. COPD, unknown FEV1, quit tobacco in 2004. 7. Urinary retention, requires self-catheterization. 8. ____. 9. Pastrana's esophagus. 10. Hyperlipidemia. 11. He does have a psychiatric disorder, I believe he has a history of bipolar schizophrenia and panic disorder. PAST SURGICAL HISTORY: As above. ALLERGIES: AMLODIPINE AND RISPERIDONE. SOCIAL HISTORY: He quit tobacco in 2004. Denies any current use of alcohol. FAMILY HISTORY: Remarkable for schizophrenia, lung cancer, drug dependence, diabetes and AML. REVIEW OF SYSTEMS: As indicated above, otherwise, a 10-point system was reviewed and negative. CONSTITUTIONAL: No fever or chills. EYES: No change in visual acuity. HENT: No nasal congestion or sore throat as indicated above. PULMONARY: As indicated above. GASTROINTESTINAL: As indicated above. GENITOURINARY: No dysuria or frequency. MUSCULOSKELETAL: No localized muscle aches or joint pain. SKIN: No new skin rashes. NEUROLOGIC: No headaches, diplopia or blurred vision. PHYSICAL EXAMINATION: GENERAL: The patient was in no respiratory distress, currently on 3-4 liters of oxygen supplementation. VITAL SIGNS: Since admission his temperature has been 97.9. HEENT: Eyes, the sclerae were nonicteric. NECK: Jugular venous distention was not elevated. No lymphadenopathy. CHEST: Full expansion. LUNGS: Adequate air flow with scattered rhonchi and expiratory wheeze. CARDIOVASCULAR: Regular rate and rhythm with S1, S2, no S3. ABDOMEN: PEG in place. EXTREMITIES: No clubbing, cyanosis. Minimal edema. NEUROLOGIC: The patient was awake, alert, following commands. His cough was actually pretty strong, I will give it as 7/10. He was able to lift his legs off the bed without significant weakness. LABORATORY DATA: Reviewed. White count was normal. Electrolytes were noted. Sodium was low. BUN and creatinine were elevated. Arterial blood gas revealed a pH of 7.39, PaCO2 of 34, pO2 of 60 on 34% FiO2. UA was noted. CT and chest x-ray as indicated above. IMPRESSION: 1. Recurrent aspiration pneumonia. 2. Acute respiratory failure secondary to recurrent aspiration pneumonia. 3. Abnormal CT chest related to recurrent aspiration pneumonia. 4. History of tongue cancer, status post chemoradiation with dysphagia, status post gastric tube placement. 5. Chronic malnutrition present upon admission, status post gastrostomy tube placement. 6. Tobacco dependence, quit in 2004. 7. Multiple other comorbidities as indicated above. PLAN: 1. We will continue current support with oxygen supplementation, antibiotics. 2. Consult speech. 3. Consult dietitian. 4. PT, OT. 5. Nebulized treatments. 6. DVT prophylaxis. I do appreciate the privilege in sharing in the patient's care. KIYA ALVAREZ MD DR: MAX/kirsten JOB#: [id number] / [id number] NICKOLAS Snyder MD
[2018-12-20 03:08] VITALS: BP 192/94
[2018-12-20] MEDS: Linaclotide (Linzess) 145 MCG PO SCH (05:08)
[2018-12-20 05:23] LABS: BASO % 1 % (0-3); EOS # 0.1 x10^3/uL (0.0-0.7); EOS % 4 % (0-3); HEMATOCRIT 36.2 % (39.0-53.0); HEMOGLOBIN 12.1 g/dL (13.0-17.5); LYMPH # 0.7 x10^3/uL (1.0-4.8); LYMPH % 18 % (24-48); MEAN CORPUSCULAR HEMOGLOBIN 30 pg (25-35); MEAN CORPUSCULAR HGB CONC 33 g/dL (31-37); MEAN CORPUSCULAR VOLUME 90 fL (79-100); MONO # 0.5 x10^3/uL (0.0-1.1); MONO % 14 % (0-9); NEUT # 2.3 x10^3uL (1.8-7.7); NEUT % 64 % (31-73); PLATELET COUNT 151 x10^3/uL (140-400); RED CELL DISTRIBUTION WIDTH 15.1 % (11.5-14.5); WHITE BLOOD COUNT 3.6 x10^3/uL (4.0-11.0)
[2018-12-20 05:29] LABS: ALBUMIN/GLOBULIN RATIO 0.8 (1.0-1.7); CALCIUM 8.6 mg/dL (8.5-10.1); CREATININE 1.3 mg/dL (0.7-1.3); GFR 54.3; POTASSIUM 4.5 mmol/L (3.5-5.1); TOTAL BILIRUBIN 0.6 mg/dL (0.2-1.0); TOTAL PROTEIN 6.6 g/dL (6.4-8.2)
[2018-12-20 07:00] VITALS: BP 162/82
[2018-12-20] MEDS: IPRATRPIUM/ALBUTEROL 0.5/2.5MG 3 ML NEBU. NEB SCH ×4 (07:52→19:54)
[2018-12-20] MEDS: ASPIRIN ENTERIC COATED 81 MG TABLET.DR. PO SCH (08:00)
[2018-12-20] MEDS: DOXYCYCLINE HYCLATE 100 MG TABLET PO SCH ×2 (08:16→21:04)
[2018-12-20] MEDS: LACTOBACILLUS RHAMNOSUS GG 1 CAPSULE. PO SCH ×2 (08:16→21:03)
[2018-12-20] MEDS: ESCITALOPRAM 20 MG PO SCH (08:16)
[2018-12-20] MEDS: SPIRONOLACTONE 25 MG TABLET PO SCH (08:17)
[2018-12-20] MEDS: OLANZapine 2.5 MG TABLET PO SCH (08:17)
[2018-12-20] MEDS: LANSOPRAZOLE 30 MG TAB.RAP.DR FT SCH ×2 (08:17→18:07)
[2018-12-20] MEDS: LISINOPRIL 20 MG TABLET PO SCH (08:18)
[2018-12-20] MEDS: METOPROLOL TART IMMED RELEASE 25 MG TABLET. PO SCH ×2 (08:19→21:04)
[2018-12-20] MEDS ORDERED: hydrALAZINE 20 MG/ML VIAL. IVP PRN (08:45)
[2018-12-20] MEDS: OLANZapine 5 MG TABLET PO SCH (09:00)
[2018-12-20] MEDS ORDERED: LANSOPRAZOLE 30 MG TAB.RAP.DR FT SCH (09:00)
[2018-12-20] MEDS: POLYETHYLENE GLYCOL 3350 17 GM PACKET. PO SCH ×2 (09:00→21:05)
--- NOTE | 2018-12-20 10:39 | PDOC ---
Infectious Disease Note Subjective: Subjective Patient states he feels a little better Has some abdominal pain Denies any fever, chills, nausea, vomiting Has Cough and shortness of breath ROS: ROS Negative except for above. Vital Signs: Vital Signs Vital Signs Date Time Temp Pulse Resp B/P (MAP) Pulse Ox O2 Delivery O2 Flow Rate FiO2 12/20/18 08:19 68 162/82 12/20/18 07:53 96 Nasal Cannula 3.0 12/20/18 07:00 98.0 22 98.0 Physical Exam: PHYSICAL EXAM GENERAL: Alert, oriented x 3 male lying in bed in no acute distress. HEENT: Normocephalic, atraumatic, slight restriction in speech because of tongue surgery. No icterus. No thrush. NECK: Supple. LUNGS: Decreased breath sounds at bases. HEART: S1, S2. No rubs, gallops, or murmurs. ABDOMEN: Soft, mildly distended. PEG tube site looks okay. No evidence of infection. There is a small abdominal wall hematoma on the right upper quadrant, mildly tender. No fluctuance. No masses felt. No rebound, no guarding. EXTREMITIES: No edema, no cyanosis. NEUROLOGIC: Alert and oriented x 3. Grossly nonfocal. Medications: Inpatient Meds: Current Medications Medications (Trade) Dose Ordered Sig/Héctor Start Time Stop Time Status Last Admin Dose Admin Acetaminophen (Tylenol) 650 mg PRN Q4HRS PRN 12/19/18 15:15 Albuterol/ Ipratropium (Duoneb) 3 ml RTQID 12/19/18 08:00 12/20/18 07:52 3 ML Aspirin (Ecotrin) 81 mg DAILY08 12/19/18 14:30 12/19/18 17:09 81 MG Atorvastatin Calcium (Lipitor) 20 mg HS 12/19/18 21:00 12/19/18 20:55 20 MG Citalopram Hydrobromide (CeleXA) 40 mg DAILY 12/19/18 14:30 12/19/18 17:07 DC Clonidine HCl (Catapres) 0.1 mg PRN Q6HRS PRN 12/19/18 15:15 12/20/18 03:30 0.1 MG Digoxin (Lanoxin) 250 mcg PRN Q6HRS PRN 12/19/18 13:30 Docusate Sodium (Colace) 100 mg PRN BID PRN 12/19/18 15:15 Doxycycline Hyclate (Vibra-Tab) 100 mg BID 12/19/18 09:30 12/20/18 08:16 100 MG Enoxaparin Sodium (Lovenox 40mg Syringe) 40 mg Q24H 12/19/18 11:00 12/19/18 12:03 40 MG Hydralazine HCl (Apresoline Inj) 10 mg PRN Q4HRS PRN 12/20/18 08:45 Hydromorphone HCl (Dilaudid) 0.5 mg PRN Q4HRS PRN 12/19/18 06:30 Lactobacillus Rhamnosus (Culturelle) 1 cap BID 12/19/18 21:00 12/20/18 08:16 1 CAP Lansoprazole (Prevacid) 30 mg DAILY 12/20/18 09:00 UNV Levofloxacin/ Dextrose 150 ml @ 100 mls/hr Q24H 12/19/18 19:00 12/19/18 19:00 DC Levofloxacin/ Dextrose (Levaquin Per Pharmacy) 1 each PRN DAILY PRN 12/19/18 00:15 12/19/18 15:02 DC Lisinopril (Prinivil) 20 mg DAILY 12/19/18 14:30 12/20/18 08:18 20 MG Lorazepam (Ativan) 0.5 mg PRN Q4HRS PRN 12/19/18 15:15 Metoprolol Tartrate (Lopressor) 12.5 mg BID 12/19/18 21:00 12/20/18 08:19 12.5 MG Non-Formulary Medication 1 ea DAILY 12/20/18 09:00 12/20/18 08:16 1 EA Non-Formulary Medication (Linaclotide (Linzess)) 145 mcg DAILY07 12/19/18 17:30 12/19/18 17:11 145 MCG Olanzapine (ZyPREXA) 5 mg DAILY 12/20/18 09:00 12/20/18 09:00 5 MG Ondansetron HCl (Zofran) 4 mg PRN Q4HRS PRN 12/19/18 15:15 Pantoprazole Sodium (PROTONIX VIAL for IV PUSH) 40 mg DAILYAC 12/19/18 07:30 12/19/18 14:26 DC 12/19/18 08:05 40 MG Piperacillin Sod/ Tazobactam Sod (Zosyn Per Pharmacy) 1 each PRN DAILY PRN 12/19/18 00:15 Piperacillin Sod/ Tazobactam Sod 3.375 gm/Sodium Chloride 50 ml @ 100 mls/hr Q6HRS 12/19/18 19:00 12/20/18 05:06 100 MLS/HR Piperacillin Sod/ Tazobactam Sod 4.5 gm/Sodium Chloride 100 ml @ 200 mls/hr Q8HRS 12/19/18 06:00 12/19/18 15:05 DC 12/19/18 13:55 200 MLS/HR Polyethylene Glycol (miraLAX PACKET) 17 gm BID 12/19/18 21:00 12/19/18 17:10 17 GM Sodium Monofluorophosphate (Fleet Adult) 133 ml PRN DAILY PRN 12/19/18 15:15 Sodium Chloride 1,000 ml @ 60 mls/hr [id number] 12/18/18 23:45 12/19/18 17:11 60 MLS/HR Spironolactone (Aldactone) 25 mg DAILY 12/19/18 15:30 12/20/18 08:17 25 MG Vancomycin HCl (Vanco Per Pharmacy) 1 each PRN DAILY PRN 12/19/18 00:30 12/19/18 15:09 1 EACH Vancomycin HCl (Vancomycin Trough Level) 1 each 1X ONCE 12/20/18 21:30 12/20/18 21:31 Vancomycin HCl 1 gm/Sodium Chloride 250 ml @ 250 mls/hr Q24H 12/19/18 22:00 12/19/18 20:56 250 MLS/HR Zolpidem Tartrate (Ambien) 5 mg PRN QHS PRN 12/19/18 15:15 Labs: Lab Laboratory Tests Test 12/19/18 16:15 12/20/18 04:25 Troponin I Quantitative 0.586 ng/mL (0.000-0.055) 0.390 ng/mL (0.000-0.055) White Blood Count 3.6 x10^3/uL (4.0-11.0) Red Blood Count 4.00 x10^6/uL (4.30-5.70) Hemoglobin 12.1 g/dL (13.0-17.5) Hematocrit 36.2 % (39.0-53.0) Mean Corpuscular Volume 90 fL (79-100) Mean Corpuscular Hemoglobin 30 pg (25-35) Mean Corpuscular Hemoglobin Concent 33 g/dL (31-37) Red Cell Distribution Width 15.1 % (11.5-14.5) Platelet Count 151 x10^3/uL (140-400) Neutrophils (%) (Auto) 64 % (31-73) Lymphocytes (%) (Auto) 18 % (24-48) Monocytes (%) (Auto) 14 % (0-9) Eosinophils (%) (Auto) 4 % (0-3) Basophils (%) (Auto) 1 % (0-3) Neutrophils # (Auto) 2.3 x10^3uL (1.8-7.7) Lymphocytes # (Auto) 0.7 x10^3/uL (1.0-4.8) Monocytes # (Auto) 0.5 x10^3/uL (0.0-1.1) Eosinophils # (Auto) 0.1 x10^3/uL (0.0-0.7) Basophils # (Auto) 0.0 x10^3/uL (0.0-0.2) Sodium Level 137 mmol/L (136-145) Potassium Level 4.5 mmol/L (3.5-5.1) Chloride Level 103 mmol/L (98-107) Carbon Dioxide Level 24 mmol/L (21-32) Anion Gap 10 (6-14) Blood Urea Nitrogen 21 mg/dL (8-26) Creatinine 1.3 mg/dL (0.7-1.3) Estimated GFR (Cockcroft-Gault) 54.3 BUN/Creatinine Ratio 16 (6-20) Glucose Level 81 mg/dL (70-99) Calcium Level 8.6 mg/dL (8.5-10.1) Total Bilirubin 0.6 mg/dL (0.2-1.0) Aspartate Amino Transf (AST/SGOT) 25 U/L (15-37) Alanine Aminotransferase (ALT/SGPT) 18 U/L (16-63) Alkaline Phosphatase 68 U/L (46-116) Total Protein 6.6 g/dL (6.4-8.2) Albumin 3.0 g/dL (3.4-5.0) Albumin/Globulin Ratio 0.8 (1.0-1.7) Procalcitonin 3.61 ng/mL (0.00-0.10) Objective: Assessment: Fever at outside hospital prior to admission at [facility]. Abdominal pain. . Right lung infiltrate. Renal insufficiency History of cancer of the tongue. History of urinary retention, status post self-catheterization. History of bipolar disorder, panic disorder, obsessive compulsive disorder, depression. History of gastroparesis, anorexia, Pastrana's esophagus, status post PEG tube placement. Plan: Plan of Care Continue empiric Zosyn and IV vancomycin. Follow up cultures at [facility] and here. Follow up labs in a.m Continue supportive care. KATIE YOON MD Dec 20, 2018 10:39
[2018-12-20] MEDS ORDERED: BARIUM SULFATE 40% (APPLE) 148 GM PWD. PO ONE (10:45)
[2018-12-20 11:00] VITALS: BP 125/77
--- NOTE | 2018-12-20 11:06 | PDOC ---
PULMONARY PROGRESS NOTES Subjective PT LESS SOA HAD VIDEO Vitals Vital Signs Date Time Temp Pulse Resp B/P (MAP) Pulse Ox O2 Delivery O2 Flow Rate FiO2 12/20/18 08:19 68 162/82 12/20/18 07:53 96 Nasal Cannula 3.0 12/20/18 07:00 98.0 22 98.0 ROS: No Nausea, No Chest Pain, No Abdominal Pain, No Increase Cough General: Alert Lungs: Clear Cardiovascular: S1, S2 Abdomen: Soft Neuro Exam: Alert Extremities: No Edema Skin: Warm Labs Laboratory Tests Test 12/18/18 23:49 12/19/18 00:02 12/19/18 00:45 12/19/18 09:10 O2 Saturation % (92-99) Arterial Blood pH 7.39 (7.35-7.45) Arterial Blood pCO2 at Patient Temp 34 mmHg (35-46) Arterial Blood pO2 at Patient Temp 60 mmHg (65-108) Arterial Blood HCO3 20 mmol/L (21-28) Arterial Blood Base Excess -4 mmol/L (-3-3) FiO2 34 Nasal Screen MRSA (PCR) Negative (Negative) White Blood Count 5.8 x10^3/uL (4.0-11.0) Red Blood Count 3.86 x10^6/uL (4.30-5.70) Hemoglobin 11.7 g/dL (13.0-17.5) Hematocrit 34.7 % (39.0-53.0) Mean Corpuscular Volume 90 fL (79-100) Mean Corpuscular Hemoglobin 30 pg (25-35) Mean Corpuscular Hemoglobin Concent 34 g/dL (31-37) Red Cell Distribution Width 15.0 % (11.5-14.5) Platelet Count 149 x10^3/uL (140-400) Neutrophils (%) (Auto) 77 % (31-73) Lymphocytes (%) (Auto) 12 % (24-48) Monocytes (%) (Auto) 11 % (0-9) Eosinophils (%) (Auto) 0 % (0-3) Basophils (%) (Auto) 0 % (0-3) Neutrophils # (Auto) 4.4 x10^3uL (1.8-7.7) Lymphocytes # (Auto) 0.7 x10^3/uL (1.0-4.8) Monocytes # (Auto) 0.6 x10^3/uL (0.0-1.1) Eosinophils # (Auto) 0.0 x10^3/uL (0.0-0.7) Basophils # (Auto) 0.0 x10^3/uL (0.0-0.2) Sodium Level 134 mmol/L (136-145) Potassium Level 5.1 mmol/L (3.5-5.1) Chloride Level 100 mmol/L (98-107) Carbon Dioxide Level 24 mmol/L (21-32) Anion Gap 10 (6-14) Blood Urea Nitrogen 37 mg/dL (8-26) Creatinine 1.7 mg/dL (0.7-1.3) Estimated GFR (Cockcroft-Gault) 39.8 BUN/Creatinine Ratio 22 (6-20) Glucose Level 87 mg/dL (70-99) Lactic Acid Level 1.0 mmol/L (0.4-2.0) Calcium Level 8.5 mg/dL (8.5-10.1) Total Bilirubin 0.5 mg/dL (0.2-1.0) Aspartate Amino Transf (AST/SGOT) 17 U/L (15-37) Alanine Aminotransferase (ALT/SGPT) 18 U/L (16-63) Alkaline Phosphatase 80 U/L (46-116) Total Protein 6.4 g/dL (6.4-8.2) Albumin 3.0 g/dL (3.4-5.0) Albumin/Globulin Ratio 0.9 (1.0-1.7) Urine Collection Type Unknown Urine Color Yellow Urine Clarity Clear Urine pH 6.5 Urine Specific Archer 1.015 Urine Protein Negative mg/dL (NEG-TRACE) Urine Glucose (UA) Negative mg/dL (NEG) Urine Ketones (Stick) Negative mg/dL (NEG) Urine Blood Negative (NEG) Urine Nitrite Negative (NEG) Urine Bilirubin Negative (NEG) Urine Urobilinogen Dipstick 1.0 mg/dL (0.2 mg/dL) Urine Leukocyte Esterase Negative (NEG) Urine RBC 0 /HPF (0-2) Urine WBC 0 /HPF (0-4) Urine Squamous Epithelial Cells Occ /LPF Urine Bacteria 0 /HPF (0-FEW) Test 12/19/18 16:15 12/20/18 04:25 Troponin I Quantitative 0.586 ng/mL (0.000-0.055) 0.390 ng/mL (0.000-0.055) White Blood Count 3.6 x10^3/uL (4.0-11.0) Red Blood Count 4.00 x10^6/uL (4.30-5.70) Hemoglobin 12.1 g/dL (13.0-17.5) Hematocrit 36.2 % (39.0-53.0) Mean Corpuscular Volume 90 fL (79-100) Mean Corpuscular Hemoglobin 30 pg (25-35) Mean Corpuscular Hemoglobin Concent 33 g/dL (31-37) Red Cell Distribution Width 15.1 % (11.5-14.5) Platelet Count 151 x10^3/uL (140-400) Neutrophils (%) (Auto) 64 % (31-73) Lymphocytes (%) (Auto) 18 % (24-48) Monocytes (%) (Auto) 14 % (0-9) Eosinophils (%) (Auto) 4 % (0-3) Basophils (%) (Auto) 1 % (0-3) Neutrophils # (Auto) 2.3 x10^3uL (1.8-7.7) Lymphocytes # (Auto) 0.7 x10^3/uL (1.0-4.8) Monocytes # (Auto) 0.5 x10^3/uL (0.0-1.1) Eosinophils # (Auto) 0.1 x10^3/uL (0.0-0.7) Basophils # (Auto) 0.0 x10^3/uL (0.0-0.2) Sodium Level 137 mmol/L (136-145) Potassium Level 4.5 mmol/L (3.5-5.1) Chloride Level 103 mmol/L (98-107) Carbon Dioxide Level 24 mmol/L (21-32) Anion Gap 10 (6-14) Blood Urea Nitrogen 21 mg/dL (8-26) Creatinine 1.3 mg/dL (0.7-1.3) Estimated GFR (Cockcroft-Gault) 54.3 BUN/Creatinine Ratio 16 (6-20) Glucose Level 81 mg/dL (70-99) Calcium Level 8.6 mg/dL (8.5-10.1) Total Bilirubin 0.6 mg/dL (0.2-1.0) Aspartate Amino Transf (AST/SGOT) 25 U/L (15-37) Alanine Aminotransferase (ALT/SGPT) 18 U/L (16-63) Alkaline Phosphatase 68 U/L (46-116) Total Protein 6.6 g/dL (6.4-8.2) Albumin 3.0 g/dL (3.4-5.0) Albumin/Globulin Ratio 0.8 (1.0-1.7) Procalcitonin 3.61 ng/mL (0.00-0.10) Laboratory Tests Test 12/19/18 16:15 12/20/18 04:25 Troponin I Quantitative 0.586 ng/mL (0.000-0.055) 0.390 ng/mL (0.000-0.055) White Blood Count 3.6 x10^3/uL (4.0-11.0) Red Blood Count 4.00 x10^6/uL (4.30-5.70) Hemoglobin 12.1 g/dL (13.0-17.5) Hematocrit 36.2 % (39.0-53.0) Mean Corpuscular Volume 90 fL (79-100) Mean Corpuscular Hemoglobin 30 pg (25-35) Mean Corpuscular Hemoglobin Concent 33 g/dL (31-37) Red Cell Distribution Width 15.1 % (11.5-14.5) Platelet Count 151 x10^3/uL (140-400) Neutrophils (%) (Auto) 64 % (31-73) Lymphocytes (%) (Auto) 18 % (24-48) Monocytes (%) (Auto) 14 % (0-9) Eosinophils (%) (Auto) 4 % (0-3) Basophils (%) (Auto) 1 % (0-3) Neutrophils # (Auto) 2.3 x10^3uL (1.8-7.7) Lymphocytes # (Auto) 0.7 x10^3/uL (1.0-4.8) Monocytes # (Auto) 0.5 x10^3/uL (0.0-1.1) Eosinophils # (Auto) 0.1 x10^3/uL (0.0-0.7) Basophils # (Auto) 0.0 x10^3/uL (0.0-0.2) Sodium Level 137 mmol/L (136-145) Potassium Level 4.5 mmol/L (3.5-5.1) Chloride Level 103 mmol/L (98-107) Carbon Dioxide Level 24 mmol/L (21-32) Anion Gap 10 (6-14) Blood Urea Nitrogen 21 mg/dL (8-26) Creatinine 1.3 mg/dL (0.7-1.3) Estimated GFR (Cockcroft-Gault) 54.3 BUN/Creatinine Ratio 16 (6-20) Glucose Level 81 mg/dL (70-99) Calcium Level 8.6 mg/dL (8.5-10.1) Total Bilirubin 0.6 mg/dL (0.2-1.0) Aspartate Amino Transf (AST/SGOT) 25 U/L (15-37) Alanine Aminotransferase (ALT/SGPT) 18 U/L (16-63) Alkaline Phosphatase 68 U/L (46-116) Total Protein 6.6 g/dL (6.4-8.2) Albumin 3.0 g/dL (3.4-5.0) Albumin/Globulin Ratio 0.8 (1.0-1.7) Procalcitonin 3.61 ng/mL (0.00-0.10) Medications Active Scripts Medications Dose Route/Sig Max Daily Dose Days Date Category Polyethylene Glycol 3350 2,500 Gm Powder 17 Gm PO BIDAC 12/19/18 Reported Zyprexa (Olanzapine) 5 Mg Tablet 5 Mg PO DAILY 12/19/18 Reported Zyprexa (Olanzapine) 2.5 Mg Tablet 1 Tab PO QHS 12/19/18 Reported Morphine 1 mg/2 ml Syringe (Morphine Sulfate/Pf) 1 Mg/2 Ml Syringe 2 Mg IV Q2H 12/19/18 Reported Metoprolol Tartrate 25 Mg Tablet 0.5 Tab PO BID 12/19/18 Reported Lisinopril 20 Mg Tablet 1 Tab PO DAILY 12/19/18 Reported Linzess (Linaclotide) 145 Mcg Capsule 145 Mcg PO DAILY07 12/19/18 Reported Lansoprazole 30 Mg Capsule.dr 30 Mg PO DAILY PRN 12/19/18 Reported Acidophilus (Lactobacillus Acidophilus) 1 Each Capsule 1 Each PO BID PRN 12/19/18 Reported Heparin 5,000 Unit/1,000 ml-Ns (Heparin Sod,Porcine/0.9 % NaCl) 5,000 Unit/1000 Ml Iv.soln 5,000 Unit IV Q8HRS PRN 12/19/18 Reported Lanoxin (Digoxin) 250 Mcg/1 Ml Ampul 250 Mcg IJ PRN Q6HRS PRN 12/19/18 Reported Celexa (Citalopram Hydrobromide) 40 Mg Tablet 1 Tab PO DAILY 12/19/18 Reported Atorvastatin Calcium 20 Mg Tablet 20 Mg PO HS PRN 12/19/18 Reported Aspirin Ec (Aspirin) 81 Mg Tablet.dr 81 Mg PO QODAY 12/19/18 Reported Impression . IMPRESSION: 1. Recurrent aspiration pneumonia. 2. Acute respiratory failure secondary to recurrent aspiration pneumonia. 3. Abnormal CT chest related to recurrent aspiration pneumonia. 4. History of tongue cancer, status post chemoradiation with dysphagia, status post gastric tube placement. 5. Chronic malnutrition present upon admission, status post gastrostomy tube placement. 6. Tobacco dependence, quit in 2004. 7. Multiple other comorbidities as indicated above. Plan . NPO FAILED VIDEO AVOID CAFFIENE D/W PT WILL CONTINUE SAME ANTIBX HOME 12/21 KIYA JOHNSON MD Dec 20, 2018 11:06
--- NOTE | 2018-12-20 11:29 | RAD ---
Video dysphasia study, 12/20/2018: History: Dysphasia The swallowing mechanism was examined fluoroscopically in the lateral projection with the patient ingested a variety of food materials mixed with barium. 1.2 minutes of fluoroscopy time was utilized. One video fluoroscopic loop was recorded by a member of the speech Department. When ingesting the thin liquid barium, the nectar consistency material and the honey thickened material there was a delay in initiation of pharyngeal peristalsis with laryngeal penetration and mild intermittent odin aspiration. There was also mild delayed laryngeal penetration and aspiration related to vallecular and piriform sinus residue. IMPRESSION: Disordered swallowing mechanism with aspiration as described above.
--- NOTE | 2018-12-20 11:31 | PDOC2 ---
JOSE C PENNY CIVIL ENGINEERING TEACHER 12/20/18 1131: CARDIAC CONSULT DATE OF CONSULT Date of Consult DATE: 12/20/18 TIME: 11:14 REASON FOR CONSULT Reason for Consult: Elevated troponin REFERRING PHYSICIAN Referring Physician: Claudio SOURCE Source: Chart review HISTORY OF PRESENT ILLNESS HISTORY OF PRESENT ILLNESS This ia 73 yo male admitted initially at [facility] for complains of increasing SOA and abdominal pain. He was then transferred to [facility] for further eval and treatments. He remains to have intermittent abdominal pain but no chest pain. Denies any SOA currently and actually cursing and complaining about his heart monitor wires. No nausea, jaw tightness, no recent falls or dizziness. He does have dysphagia and has PEG tube but remains to drink clear liquids such as coffee. Unclear about past hx of CAD. PAST MEDICAL HISTORY Cardiovascular: CAD, HTN, Hyperlipidemia, Other (carotid artery disease) Pulmonary: COPD, Pneumonia, Other (aspiration) CENTRAL NERVOUS SYSTEM: Dementia, Other (Mikana palsy) GI: Other (barretts; dysphagia) Heme/Onc: Anemia NOS, Cancer (tongue) Hepatobiliary: Cholelithiasis Psych: Anxiety, Depression, Other (OCD; multiple suicide attempts) Musculoskeletal: Osteoarthritis ENT: Other (cataract) PAST SURGICAL HISTORY Past Surgical History: Other (carotid endarterectomy; PEG placement) FAMILY HISTORY Family History: Family History Unknown SOCIAL HISTORY Smoke: Quit ALCOHOL: none Drugs: None CURRENT MEDICATIONS CURRENT MEDICATIONS Current Medications Medications (Trade) Dose Ordered Sig/Héctor Route PRN Reason Start Time Stop Time Status Last Admin Dose Admin Vancomycin HCl 1 gm/Sodium Chloride 250 ml @ 250 mls/hr Q24H IV 12/19/18 22:00 12/19/18 20:56 Aspirin (Ecotrin) 81 mg DAILY08 PO 12/19/18 14:30 12/19/18 17:09 Atorvastatin Calcium (Lipitor) 20 mg HS PO 12/19/18 21:00 12/19/18 20:55 Lisinopril (Prinivil) 20 mg DAILY PO 12/19/18 14:30 12/20/18 08:18 Metoprolol Tartrate (Lopressor) 12.5 mg BID PO 12/19/18 21:00 12/20/18 08:19 Lactobacillus Rhamnosus (Culturelle) 1 cap BID PO 12/19/18 21:00 12/20/18 08:16 Lansoprazole (Prevacid) 30 mg DAILY FT 12/19/18 15:00 12/20/18 08:17 Non-Formulary Medication (Linaclotide (Linzess)) 145 mcg DAILY07 PO 12/19/18 17:30 12/19/18 17:11 Olanzapine (ZyPREXA) 2.5 mg QHS PO 12/19/18 21:00 12/20/18 08:17 Olanzapine (ZyPREXA) 5 mg DAILY PO 12/20/18 09:00 12/20/18 09:00 Piperacillin Sod/ Tazobactam Sod 3.375 gm/Sodium Chloride 50 ml @ 100 mls/hr Q6HRS IV 12/19/18 19:00 12/20/18 05:06 Spironolactone (Aldactone) 25 mg DAILY PO 12/19/18 15:30 12/20/18 08:17 Clonidine HCl (Catapres) 0.1 mg PRN Q6HRS PRN PO SBP>160 OR DBP>90 12/19/18 15:15 12/20/18 03:30 Polyethylene Glycol (miraLAX PACKET) 17 gm BID PO 12/19/18 21:00 12/19/18 17:10 Non-Formulary Medication 1 ea DAILY PO 12/20/18 09:00 12/20/18 08:16 ALLERGIES ALLERGIES: Coded Allergies: amlodipine (Verified Allergy, Unknown, 12/18/18) risperidone (Verified Allergy, Unknown, 12/18/18) ROS Review of System limited, poor historian PHYSICAL EXAM General: Alert, Cooperative, No acute distress HEENT: Atraumatic, Mucous membr. moist/pink Lungs: Other (diffuse wheeze) Heart: Regular rate, Other (distant heart sounds) Abdomen: Soft, Other (diffuse abd tenderness with palpation, PEG tube in place) Extremities: No cyanosis, No edema Skin: No breakdown, No significant lesion Neuro: Normal speech, Sensation intact Psych/Mental Status: Other (irritable) MUSCULOSKELETAL: Osteoarthritic changes both hands VITALS VITALS Vital Signs Date Time Temp Pulse Resp B/P (MAP) Pulse Ox O2 Delivery O2 Flow Rate FiO2 12/20/18 11:00 98.4 61 22 125/77 (93) 94 98.4 12/20/18 07:53 Nasal Cannula 3.0 LABS Lab: Laboratory Tests Test 12/19/18 16:15 12/20/18 04:25 Troponin I Quantitative 0.586 ng/mL (0.000-0.055) 0.390 ng/mL (0.000-0.055) White Blood Count 3.6 x10^3/uL (4.0-11.0) Red Blood Count 4.00 x10^6/uL (4.30-5.70) Hemoglobin 12.1 g/dL (13.0-17.5) Hematocrit 36.2 % (39.0-53.0) Mean Corpuscular Volume 90 fL (79-100) Mean Corpuscular Hemoglobin 30 pg (25-35) Mean Corpuscular Hemoglobin Concent 33 g/dL (31-37) Red Cell Distribution Width 15.1 % (11.5-14.5) Platelet Count 151 x10^3/uL (140-400) Neutrophils (%) (Auto) 64 % (31-73) Lymphocytes (%) (Auto) 18 % (24-48) Monocytes (%) (Auto) 14 % (0-9) Eosinophils (%) (Auto) 4 % (0-3) Basophils (%) (Auto) 1 % (0-3) Neutrophils # (Auto) 2.3 x10^3uL (1.8-7.7) Lymphocytes # (Auto) 0.7 x10^3/uL (1.0-4.8) Monocytes # (Auto) 0.5 x10^3/uL (0.0-1.1) Eosinophils # (Auto) 0.1 x10^3/uL (0.0-0.7) Basophils # (Auto) 0.0 x10^3/uL (0.0-0.2) Sodium Level 137 mmol/L (136-145) Potassium Level 4.5 mmol/L (3.5-5.1) Chloride Level 103 mmol/L (98-107) Carbon Dioxide Level 24 mmol/L (21-32) Anion Gap 10 (6-14) Blood Urea Nitrogen 21 mg/dL (8-26) Creatinine 1.3 mg/dL (0.7-1.3) Estimated GFR (Cockcroft-Gault) 54.3 BUN/Creatinine Ratio 16 (6-20) Glucose Level 81 mg/dL (70-99) Calcium Level 8.6 mg/dL (8.5-10.1) Total Bilirubin 0.6 mg/dL (0.2-1.0) Aspartate Amino Transf (AST/SGOT) 25 U/L (15-37) Alanine Aminotransferase (ALT/SGPT) 18 U/L (16-63) Alkaline Phosphatase 68 U/L (46-116) Total Protein 6.6 g/dL (6.4-8.2) Albumin 3.0 g/dL (3.4-5.0) Albumin/Globulin Ratio 0.8 (1.0-1.7) Procalcitonin 3.61 ng/mL (0.00-0.10) ASSESSMENT/PLAN ASSESSMENT/PLAN 1. Aspiration pneumonia/fever: recurrent, pulmonary following 2. AECOPD 3. Hypotension with possible sepsis: noted at [facility]. BP much better 4. PSVT: noted at [facility]. Brief bursts noted otherwise SR with 1st degree AV block 5. ESTRELLA: better after hydration 6. NSTEMI: Trop peaked at 0.5, suspect demand mediated, type 2, with multiple culprits above. 7. Dysphagia with Barretts and hx of tongue CA: GI following. treated with remote radiation and chemo 8. Anemia of chronic disease 9. CAD: coronary calcifications per CT Recommendations 1. TTE, EKG, TSH, lipids 2. ASA, Metoprolol will increase if need be 3. Continue with secondary prevention 4. Out pt stress test is a consideration pending TTE result. MADELINE SCOTT MD 12/20/187: CARDIAC CONSULT ASSESSMENT/PLAN ASSESSMENT/PLAN Pt. seen and examined. Agree with above HOTEL ADMINISTRATIVE ASSISTANT note. His symptoms are clearly GI in nature. No obvious angina. Unclear why trop was even checked. Echo wnl. In SR> Elevated troponin due to stress. Consider outpt stress test. Thanks. Ok to DC from CV standpoint. Pls call with questions. Continue present meds. JOSE C PENNY APRN Dec 20, 2018 11:31 MADELINE SCOTT MD Dec 20, 2018 22:27
--- NOTE | 2018-12-20 12:01 | PDOC ---
Subjective: Subjective: Awaiting videoswallow when I saw - "I hope I don't choke." Per RN - received report had diarrhea last night and was told to hold Miralax. He repeatedly asks for Miralax. Objective: Vital Signs: Vital Signs Date Time Temp Pulse Resp B/P (MAP) Pulse Ox O2 Delivery O2 Flow Rate FiO2 12/20/18 11:00 98.4 61 22 125/77 (93) 94 98.4 12/20/18 07:53 Nasal Cannula 3.0 Labs: Laboratory Tests Test 12/19/18 16:15 12/20/18 04:25 Troponin I Quantitative 0.586 ng/mL 0.390 ng/mL White Blood Count 3.6 x10^3/uL Red Blood Count 4.00 x10^6/uL Hemoglobin 12.1 g/dL Hematocrit 36.2 % Mean Corpuscular Volume 90 fL Mean Corpuscular Hemoglobin 30 pg Mean Corpuscular Hemoglobin Concent 33 g/dL Red Cell Distribution Width 15.1 % Platelet Count 151 x10^3/uL Neutrophils (%) (Auto) 64 % Lymphocytes (%) (Auto) 18 % Monocytes (%) (Auto) 14 % Eosinophils (%) (Auto) 4 % Basophils (%) (Auto) 1 % Neutrophils # (Auto) 2.3 x10^3uL Lymphocytes # (Auto) 0.7 x10^3/uL Monocytes # (Auto) 0.5 x10^3/uL Eosinophils # (Auto) 0.1 x10^3/uL Basophils # (Auto) 0.0 x10^3/uL Sodium Level 137 mmol/L Potassium Level 4.5 mmol/L Chloride Level 103 mmol/L Carbon Dioxide Level 24 mmol/L Anion Gap 10 Blood Urea Nitrogen 21 mg/dL Creatinine 1.3 mg/dL Estimated GFR (Cockcroft-Gault) 54.3 BUN/Creatinine Ratio 16 Glucose Level 81 mg/dL Calcium Level 8.6 mg/dL Total Bilirubin 0.6 mg/dL Aspartate Amino Transf (AST/SGOT) 25 U/L Alanine Aminotransferase (ALT/SGPT) 18 U/L Alkaline Phosphatase 68 U/L Total Protein 6.6 g/dL Albumin 3.0 g/dL Albumin/Globulin Ratio 0.8 Procalcitonin 3.61 ng/mL BLOOD CULTURE Preliminary NO GROWTH AFTER 1 DAY Imaging: Videoswallow History: Dysphasia The swallowing mechanism was examined fluoroscopically in the lateral projection with the patient ingested a variety of food materials mixed with barium. 1.2 minutes of fluoroscopy time was utilized. One video fluoroscopic loop was recorded by a member of the speech Department. When ingesting the thin liquid barium, the nectar consistency material and the honey thickened material there was a delay in initiation of pharyngeal peristalsis with laryngeal penetration and mild intermittent odin aspiration. There was also mild delayed laryngeal penetration and aspiration related to vallecular and piriform sinus residue. IMPRESSION: Disordered swallowing mechanism with aspiration as described above. PE: GEN: NAD LUNGS: frequent coughing, NC HEART: RRR ABD: S/ND/NT, NELSON-[place] in place NEURO/PSYCH: A & O 3, very anxious A/P: Recurrent pneumonia, dysphagia, NELSON-[place] in place Psych issues, IBS Pastrana's esophagus -- It is reasonable to adjust Linzess and Miralax dosing if having diarrhea, though I don't think he understands this. Continue PPI, use NELSON-PRESLEY for feeds, encourage compliance w/ NPO to avoid pneumonia. LOUIE SHARP Dec 20, 2018 12:01
--- NOTE | 2018-12-20 12:16 | PDOC ---
PROGRESS NOTES Chief Complaint Chief Complaint 1. Recurrent aspiration pneumonia. 2. Acute respiratory failure secondary to recurrent aspiration pneumonia. 3. Abnormal CT chest related to recurrent aspiration pneumonia. 4. History of tongue cancer, status post chemoradiation with dysphagia, status post gastric tube placement. 5. Chronic malnutrition present upon admission, status post gastrostomy tube placement. 6. Tobacco dependence, quit in 2004. 7. Multiple other comorbidities as indicated above. 8. Recurrent pneumonia, dysphagia, GRACIA-PRESLEY in place 9. 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 NSTEMI, CAD hx History of Present Illness History of Present Illness Not in room Other charts reviewed, chronic aspiration-high risk aspiration PT OT pending There is a Gracia-PRESLEY in place He is nothing by mouth Tube feeds running? Troponin 0.5 in the background of sepsis with no chest pain-cardiology on board Creatinine 1.7 seems to be stable Blood culture pulmonary negative WBC S3, no fevers, hemoglobin 12 Plan CPM awaiting PT OT Erik Follow cultures Need to address CODE STATUS Consult palliative regarding this? Vitals Vitals Vital Signs Date Time Temp Pulse Resp B/P (MAP) Pulse Ox O2 Delivery O2 Flow Rate FiO2 12/20/18 12:12 96 Nasal Cannula 3.0 12/20/18 11:00 98.4 61 22 125/77 (93) 98.4 Physical Exam Physical Exam GENERAL: Alert, oriented x 3 male lying in bed in no acute distress. HEENT: Normocephalic, atraumatic, slight restriction in speech because of tongue surgery. No icterus. No thrush. NECK: Supple. LUNGS: Decreased breath sounds at bases. HEART: S1, S2. No rubs, gallops, or murmurs. ABDOMEN: Soft, mildly distended. PEG tube site looks okay. No evidence of infection. There is a small abdominal wall hematoma on the right upper quadrant, mildly tender. No fluctuance. No masses felt. No rebound, no guarding. EXTREMITIES: No edema, no cyanosis. NEUROLOGIC: Alert and oriented x 3. Grossly nonfocal. General: Alert, Oriented X3, Cooperative, mild distress Abdomen: Normal bowel sounds, Soft Extremities: No cyanosis Labs LABS Laboratory Tests Test 12/19/18 16:15 12/20/18 04:25 Troponin I Quantitative 0.586 ng/mL (0.000-0.055) 0.390 ng/mL (0.000-0.055) White Blood Count 3.6 x10^3/uL (4.0-11.0) Red Blood Count 4.00 x10^6/uL (4.30-5.70) Hemoglobin 12.1 g/dL (13.0-17.5) Hematocrit 36.2 % (39.0-53.0) Mean Corpuscular Volume 90 fL (79-100) Mean Corpuscular Hemoglobin 30 pg (25-35) Mean Corpuscular Hemoglobin Concent 33 g/dL (31-37) Red Cell Distribution Width 15.1 % (11.5-14.5) Platelet Count 151 x10^3/uL (140-400) Neutrophils (%) (Auto) 64 % (31-73) Lymphocytes (%) (Auto) 18 % (24-48) Monocytes (%) (Auto) 14 % (0-9) Eosinophils (%) (Auto) 4 % (0-3) Basophils (%) (Auto) 1 % (0-3) Neutrophils # (Auto) 2.3 x10^3uL (1.8-7.7) Lymphocytes # (Auto) 0.7 x10^3/uL (1.0-4.8) Monocytes # (Auto) 0.5 x10^3/uL (0.0-1.1) Eosinophils # (Auto) 0.1 x10^3/uL (0.0-0.7) Basophils # (Auto) 0.0 x10^3/uL (0.0-0.2) Sodium Level 137 mmol/L (136-145) Potassium Level 4.5 mmol/L (3.5-5.1) Chloride Level 103 mmol/L (98-107) Carbon Dioxide Level 24 mmol/L (21-32) Anion Gap 10 (6-14) Blood Urea Nitrogen 21 mg/dL (8-26) Creatinine 1.3 mg/dL (0.7-1.3) Estimated GFR (Cockcroft-Gault) 54.3 BUN/Creatinine Ratio 16 (6-20) Glucose Level 81 mg/dL (70-99) Calcium Level 8.6 mg/dL (8.5-10.1) Total Bilirubin 0.6 mg/dL (0.2-1.0) Aspartate Amino Transf (AST/SGOT) 25 U/L (15-37) Alanine Aminotransferase (ALT/SGPT) 18 U/L (16-63) Alkaline Phosphatase 68 U/L (46-116) Total Protein 6.6 g/dL (6.4-8.2) Albumin 3.0 g/dL (3.4-5.0) Albumin/Globulin Ratio 0.8 (1.0-1.7) Triglycerides Level 38 mg/dL (0-150) Cholesterol Level 79 mg/dL (0-200) LDL Cholesterol, Calculated 32 mg/dL (0-100) VLDL Cholesterol, Calculated 8 mg/dL (0-40) Non-HDL Cholesterol Calculated 40 mg/dL (0-129) HDL Cholesterol 39 mg/dL (40-60) Cholesterol/HDL Ratio 2.0 Procalcitonin 3.61 ng/mL (0.00-0.10) Thyroid Stimulating Hormone (TSH) 2.562 uIU/mL (0.358-3.74) Review of Systems Review of Systems dementia limited ROS Comment Review of Relevant I have reviewed the following items edi (where applicable) has been applied. Labs Laboratory Tests Test 12/18/18 23:49 12/19/18 00:02 12/19/18 00:45 12/19/18 09:10 O2 Saturation % (92-99) Arterial Blood pH 7.39 (7.35-7.45) Arterial Blood pCO2 at Patient Temp 34 mmHg (35-46) Arterial Blood pO2 at Patient Temp 60 mmHg (65-108) Arterial Blood HCO3 20 mmol/L (21-28) Arterial Blood Base Excess -4 mmol/L (-3-3) FiO2 34 Nasal Screen MRSA (PCR) Negative (Negative) White Blood Count 5.8 x10^3/uL (4.0-11.0) Red Blood Count 3.86 x10^6/uL (4.30-5.70) Hemoglobin 11.7 g/dL (13.0-17.5) Hematocrit 34.7 % (39.0-53.0) Mean Corpuscular Volume 90 fL (79-100) Mean Corpuscular Hemoglobin 30 pg (25-35) Mean Corpuscular Hemoglobin Concent 34 g/dL (31-37) Red Cell Distribution Width 15.0 % (11.5-14.5) Platelet Count 149 x10^3/uL (140-400) Neutrophils (%) (Auto) 77 % (31-73) Lymphocytes (%) (Auto) 12 % (24-48) Monocytes (%) (Auto) 11 % (0-9) Eosinophils (%) (Auto) 0 % (0-3) Basophils (%) (Auto) 0 % (0-3) Neutrophils # (Auto) 4.4 x10^3uL (1.8-7.7) Lymphocytes # (Auto) 0.7 x10^3/uL (1.0-4.8) Monocytes # (Auto) 0.6 x10^3/uL (0.0-1.1) Eosinophils # (Auto) 0.0 x10^3/uL (0.0-0.7) Basophils # (Auto) 0.0 x10^3/uL (0.0-0.2) Sodium Level 134 mmol/L (136-145) Potassium Level 5.1 mmol/L (3.5-5.1) Chloride Level 100 mmol/L (98-107) Carbon Dioxide Level 24 mmol/L (21-32) Anion Gap 10 (6-14) Blood Urea Nitrogen 37 mg/dL (8-26) Creatinine 1.7 mg/dL (0.7-1.3) Estimated GFR (Cockcroft-Gault) 39.8 BUN/Creatinine Ratio 22 (6-20) Glucose Level 87 mg/dL (70-99) Lactic Acid Level 1.0 mmol/L (0.4-2.0) Calcium Level 8.5 mg/dL (8.5-10.1) Total Bilirubin 0.5 mg/dL (0.2-1.0) Aspartate Amino Transf (AST/SGOT) 17 U/L (15-37) Alanine Aminotransferase (ALT/SGPT) 18 U/L (16-63) Alkaline Phosphatase 80 U/L (46-116) Total Protein 6.4 g/dL (6.4-8.2) Albumin 3.0 g/dL (3.4-5.0) Albumin/Globulin Ratio 0.9 (1.0-1.7) Urine Collection Type Unknown Urine Color Yellow Urine Clarity Clear Urine pH 6.5 Urine Specific [place] 1.015 Urine Protein Negative mg/dL (NEG-TRACE) Urine Glucose (UA) Negative mg/dL (NEG) Urine Ketones (Stick) Negative mg/dL (NEG) Urine Blood Negative (NEG) Urine Nitrite Negative (NEG) Urine Bilirubin Negative (NEG) Urine Urobilinogen Dipstick 1.0 mg/dL (0.2 mg/dL) Urine Leukocyte Esterase Negative (NEG) Urine RBC 0 /HPF (0-2) Urine WBC 0 /HPF (0-4) Urine Squamous Epithelial Cells Occ /LPF Urine Bacteria 0 /HPF (0-FEW) Test 12/19/18 16:15 12/20/18 04:25 Troponin I Quantitative 0.586 ng/mL (0.000-0.055) 0.390 ng/mL (0.000-0.055) White Blood Count 3.6 x10^3/uL (4.0-11.0) Red Blood Count 4.00 x10^6/uL (4.30-5.70) Hemoglobin 12.1 g/dL (13.0-17.5) Hematocrit 36.2 % (39.0-53.0) Mean Corpuscular Volume 90 fL (79-100) Mean Corpuscular Hemoglobin 30 pg (25-35) Mean Corpuscular Hemoglobin Concent 33 g/dL (31-37) Red Cell Distribution Width 15.1 % (11.5-14.5) Platelet Count 151 x10^3/uL (140-400) Neutrophils (%) (Auto) 64 % (31-73) Lymphocytes (%) (Auto) 18 % (24-48) Monocytes (%) (Auto) 14 % (0-9) Eosinophils (%) (Auto) 4 % (0-3) Basophils (%) (Auto) 1 % (0-3) Neutrophils # (Auto) 2.3 x10^3uL (1.8-7.7) Lymphocytes # (Auto) 0.7 x10^3/uL (1.0-4.8) Monocytes # (Auto) 0.5 x10^3/uL (0.0-1.1) Eosinophils # (Auto) 0.1 x10^3/uL (0.0-0.7) Basophils # (Auto) 0.0 x10^3/uL (0.0-0.2) Sodium Level 137 mmol/L (136-145) Potassium Level 4.5 mmol/L (3.5-5.1) Chloride Level 103 mmol/L (98-107) Carbon Dioxide Level 24 mmol/L (21-32) Anion Gap 10 (6-14) Blood Urea Nitrogen 21 mg/dL (8-26) Creatinine 1.3 mg/dL (0.7-1.3) Estimated GFR (Cockcroft-Gault) 54.3 BUN/Creatinine Ratio 16 (6-20) Glucose Level 81 mg/dL (70-99) Calcium Level 8.6 mg/dL (8.5-10.1) Total Bilirubin 0.6 mg/dL (0.2-1.0) Aspartate Amino Transf (AST/SGOT) 25 U/L (15-37) Alanine Aminotransferase (ALT/SGPT) 18 U/L (16-63) Alkaline Phosphatase 68 U/L (46-116) Total Protein 6.6 g/dL (6.4-8.2) Albumin 3.0 g/dL (3.4-5.0) Albumin/Globulin Ratio 0.8 (1.0-1.7) Triglycerides Level 38 mg/dL (0-150) Cholesterol Level 79 mg/dL (0-200) LDL Cholesterol, Calculated 32 mg/dL (0-100) VLDL Cholesterol, Calculated 8 mg/dL (0-40) Non-HDL Cholesterol Calculated 40 mg/dL (0-129) HDL Cholesterol 39 mg/dL (40-60) Cholesterol/HDL Ratio 2.0 Procalcitonin 3.61 ng/mL (0.00-0.10) Thyroid Stimulating Hormone (TSH) 2.562 uIU/mL (0.358-3.74) Laboratory Tests Test 12/19/18 16:15 12/20/18 04:25 Troponin I Quantitative 0.586 ng/mL (0.000-0.055) 0.390 ng/mL (0.000-0.055) White Blood Count 3.6 x10^3/uL (4.0-11.0) Red Blood Count 4.00 x10^6/uL (4.30-5.70) Hemoglobin 12.1 g/dL (13.0-17.5) Hematocrit 36.2 % (39.0-53.0) Mean Corpuscular Volume 90 fL (79-100) Mean Corpuscular Hemoglobin 30 pg (25-35) Mean Corpuscular Hemoglobin Concent 33 g/dL (31-37) Red Cell Distribution Width 15.1 % (11.5-14.5) Platelet Count 151 x10^3/uL (140-400) Neutrophils (%) (Auto) 64 % (31-73) Lymphocytes (%) (Auto) 18 % (24-48) Monocytes (%) (Auto) 14 % (0-9) Eosinophils (%) (Auto) 4 % (0-3) Basophils (%) (Auto) 1 % (0-3) Neutrophils # (Auto) 2.3 x10^3uL (1.8-7.7) Lymphocytes # (Auto) 0.7 x10^3/uL (1.0-4.8) Monocytes # (Auto) 0.5 x10^3/uL (0.0-1.1) Eosinophils # (Auto) 0.1 x10^3/uL (0.0-0.7) Basophils # (Auto) 0.0 x10^3/uL (0.0-0.2) Sodium Level 137 mmol/L (136-145) Potassium Level 4.5 mmol/L (3.5-5.1) Chloride Level 103 mmol/L (98-107) Carbon Dioxide Level 24 mmol/L (21-32) Anion Gap 10 (6-14) Blood Urea Nitrogen 21 mg/dL (8-26) Creatinine 1.3 mg/dL (0.7-1.3) Estimated GFR (Cockcroft-Gault) 54.3 BUN/Creatinine Ratio 16 (6-20) Glucose Level 81 mg/dL (70-99) Calcium Level 8.6 mg/dL (8.5-10.1) Total Bilirubin 0.6 mg/dL (0.2-1.0) Aspartate Amino Transf (AST/SGOT) 25 U/L (15-37) Alanine Aminotransferase (ALT/SGPT) 18 U/L (16-63) Alkaline Phosphatase 68 U/L (46-116) Total Protein 6.6 g/dL (6.4-8.2) Albumin 3.0 g/dL (3.4-5.0) Albumin/Globulin Ratio 0.8 (1.0-1.7) Triglycerides Level 38 mg/dL (0-150) Cholesterol Level 79 mg/dL (0-200) LDL Cholesterol, Calculated 32 mg/dL (0-100) VLDL Cholesterol, Calculated 8 mg/dL (0-40) Non-HDL Cholesterol Calculated 40 mg/dL (0-129) HDL Cholesterol 39 mg/dL (40-60) Cholesterol/HDL Ratio 2.0 Procalcitonin 3.61 ng/mL (0.00-0.10) Thyroid Stimulating Hormone (TSH) 2.562 uIU/mL (0.358-3.74) Microbiology 12/19/18 Blood Culture - Preliminary, Resulted NO GROWTH AFTER 1 DAY Medications Current Medications Sodium Chloride 1,000 ml @ 60 mls/hr [id number] IV Last administered on at 17:11; Start 12/18/18 at 23:45 Piperacillin Sod/ Tazobactam Sod (Zosyn Per Pharmacy) 1 each PRN DAILY PRN MC SEE COMMENTS; Start 12/19/18 at 00:15 Levofloxacin/ Dextrose (Levaquin Per Pharmacy) 1 each PRN DAILY PRN MC SEE COMMENTS; Start 12/19/18 at 00:15; Stop 12/19/18 at 15:02; Status DC Vancomycin HCl (Vanco Per Pharmacy) 1 each PRN DAILY PRN MC SEE COMMENTS Last administered on 12/19/18at 15:09; Start 12/19/18 at 00:30 Levofloxacin/ Dextrose 150 ml @ 100 mls/hr Q24H IV ; Start 12/19/18 at 19:00; Stop 12/19/18 at 19:00; Status DC Piperacillin Sod/ Tazobactam Sod 4.5 gm/Sodium Chloride 100 ml @ 200 mls/hr Q8HRS IV Last administered on 12/19/18at 13:55; Start 12/19/18 at 06:00; Stop at 15:05; Status DC Vancomycin HCl 1 gm/Sodium Chloride 250 ml @ 250 mls/hr Q24H IV Last administered on 12/19/18at 20:56; Start 12/19/18 at 22:00 Vancomycin HCl (Vancomycin Trough Level) 1 each 1X ONCE MC ; Start 12/20/18 at 21:30; Stop 12/20/18 at 21:31 Albuterol/ Ipratropium (Duoneb) 3 ml RTQID NEB Last administered on 12/20/18 12:09; Start 12/19/18 at 08:00 Hydromorphone HCl (Dilaudid) 0.5 mg PRN Q4HRS PRN IVP PAIN; Start 12/19/18 at 06:30 Ondansetron HCl (Zofran) 4 mg PRN Q6HRS PRN IV NAUSEA/VOMITING; Start 12/19/18 at 06:30 Pantoprazole Sodium (PROTONIX VIAL for IV PUSH) 40 mg DAILYAC IVP Last administered on 12/19/18 08:05; Start 12/19/18 at 07:30; Stop 12/19/18 at 14:26 ; Status DC Doxycycline Hyclate (Vibra-Tab) 100 mg BID PO Last administered on 12/20/18 08 :16; Start 12/19/18 at 09:30 Enoxaparin Sodium (Lovenox 40mg Syringe) 40 mg Q24H SQ Last administered on 12:03; Start 12/19/18 at 11:00 Aspirin (Ecotrin) 81 mg DAILY08 PO Last administered on 12/19/18 17:09; Start 12/19/18 at 14:30 Atorvastatin Calcium (Lipitor) 20 mg HS PO Last administered on 12/19/18at 20:55 ; Start 12/19/18 at 21:00 Digoxin (Lanoxin) 250 mcg PRN Q6HRS PRN IV heart rate; Start 12/19/18 at 13:30 Lisinopril (Prinivil) 20 mg DAILY PO Last administered on 12/20/18 08:18; Start 12/19/18 at 14:30 Metoprolol Tartrate (Lopressor) 12.5 mg BID PO Last administered on 12/20/18 08:19; Start 12/19/18 at 21:00 Citalopram Hydrobromide (CeleXA) 40 mg DAILY PO ; Start 12/19/18 at 14:30; Stop 12/19/18 at 17:07; Status DC Lactobacillus Rhamnosus (Culturelle) 1 cap BID PO Last administered on 08:16; Start 12/19/18 at 21:00 Lansoprazole (Prevacid) 30 mg DAILY FT Last administered on 12/20/18 08:17; Start 12/19/18 at 15:00 Non-Formulary Medication (Linaclotide (Linzess)) 145 mcg DAILY07 PO Last administered on 12/19/18at 17:11; Start 12/19/18 at 17:30 Olanzapine (ZyPREXA) 2.5 mg QHS PO Last administered on 12/20/18 08:17; Start 12/19/18 at 21:00 Olanzapine (ZyPREXA) 5 mg DAILY PO Last administered on 12/20/18at 09:00; Start 12/20/18 at 09:00 Polyethylene Glycol (miraLAX PACKET) 17 gm BIDAC PO ; Start 12/19/18 at 16:30; Stop 12/19/18 at 16:53; Status DC Piperacillin Sod/ Tazobactam Sod 3.375 gm/Sodium Chloride 50 ml @ 100 mls/hr Q6HRS IV Last administered on 12/20/18 05:06; Start 12/19/18 at 19:00 Spironolactone (Aldactone) 25 mg DAILY PO Last administered on 12/20/18at 08:17 ; Start 12/19/18 at 15:30 Ondansetron HCl (Zofran) 4 mg PRN Q4HRS PRN IV NAUSEA/VOMITING; Start 12/19/18 at 15:15 Zolpidem Tartrate (Ambien) 5 mg PRN QHS PRN PO INSOMNIA; Start 12/19/18 at 15: 15 Acetaminophen (Tylenol) 650 mg PRN Q4HRS PRN PO TEMP OVER 100.4F OR MILD PAIN; Start 12/19/18 at 15:15 Clonidine HCl (Catapres) 0.1 mg PRN Q6HRS PRN PO SBP>160 OR DBP>90 Last administered on 12/20/18at 03:30; Start 12/19/18 at 15:15 Sodium Monofluorophosphate (Fleet Adult) 133 ml PRN DAILY PRN RI CONSTIPATION; Start 12/19/18 at 15:15 Docusate Sodium (Colace) 100 mg PRN BID PRN PO CONSTIPATION; Start 12/19/18 at 15:15 Lorazepam (Ativan) 0.5 mg PRN Q4HRS PRN PO ANXIETY / AGITATION; Start 12/19/18 at 15:15 Polyethylene Glycol (miraLAX PACKET) 17 gm BID PO Last administered on at 17:10; Start 12/19/18 at 21:00 Lansoprazole (Prevacid) 30 mg DAILY FT ; Start 12/20/18 at 09:00; Status UNV Non-Formulary Medication 1 ea DAILY PO Last administered on 12/20/18at 08:16; Start 12/20/18 at 09:00 Hydralazine HCl (Apresoline Inj) 10 mg PRN Q4HRS PRN IVP ELEVATED BP, SEE COMMENTS; Start 12/20/18 at 08:45 Barium Sulfate (Varibar Thin Liquid Apple) 148 gm 1X ONCE PO Last administered on 12/20/18at 10:45; Start 12/20/18 at 10:45; Stop 12/20/18 at 10:46 ; Status DC Active Scripts Active Reported Polyethylene Glycol 3350 2,500 Gm Powder 17 Gm PO BIDAC Zyprexa (Olanzapine) 5 Mg Tablet 5 Mg PO DAILY Zyprexa (Olanzapine) 2.5 Mg Tablet 1 Tab PO QHS Morphine 1 mg/2 ml Syringe (Morphine Sulfate/Pf) 1 Mg/2 Ml Syringe 2 Mg IV Q2H Metoprolol Tartrate 25 Mg Tablet 0.5 Tab PO BID Lisinopril 20 Mg Tablet 1 Tab PO DAILY Linzess (Linaclotide) 145 Mcg Capsule 145 Mcg PO DAILY07 Lansoprazole 30 Mg Capsule.dr 30 Mg PO DAILY PRN Acidophilus (Lactobacillus Acidophilus) 1 Each Capsule 1 Each PO BID PRN Heparin 5,000 Unit/1,000 ml-Ns (Heparin Sod,Porcine/0.9 % NaCl) 5,000 Unit/1000 Ml Iv.soln 5,000 Unit IV Q8HRS PRN Lanoxin (Digoxin) 250 Mcg/1 Ml Ampul 250 Mcg IJ PRN Q6HRS PRN Celexa (Citalopram Hydrobromide) 40 Mg Tablet 1 Tab PO DAILY Atorvastatin Calcium 20 Mg Tablet 20 Mg PO HS PRN Aspirin Ec (Aspirin) 81 Mg Tablet.dr 81 Mg PO QODAY Vitals/I & O Vital Sign - Last 24 Hours 12/19/18 12/19/18 12/19/18 12/19/18 13:00 14:00 15:00 16:37 Pulse 64 75 20 Resp 20 20 4 B/P (MAP) 156/77 (103) 165/83 (110) 155/79 (104) Pulse Ox 98 92 93 O2 Delivery Nasal Cannula Nasal Cannula Nasal Cannula Nasal Cannula O2 Flow Rate 4.0 4.0 3.0 12/19/18 12/19/18 12/19/18 12/19/18 17:08 19:00 20:00 20:41 Temp 98.5 98.5 Pulse 80 76 Resp 20 B/P (MAP) 155/79 149/74 (99) Pulse Ox 94 94 O2 Delivery Nasal Cannula Nasal Cannula Nasal Cannula O2 Flow Rate 4.0 3.0 12/19/18 12/19/18 12/20/18 12/20/18 20:55 23:00 03:08 03:30 Temp 98.2 98.4 98.2 98.4 Pulse 76 63 72 72 Resp 20 20 B/P (MAP) 149/74 136/77 (96) 192/94 (126) 192/94 Pulse Ox 93 95 O2 Delivery Nasal Cannula Nasal Cannula 12/20/18 12/20/18 12/20/18 12/20/18 07:00 07:53 08:18 08:19 Temp 98.0 98.0 Pulse 68 68 68 Resp 22 B/P (MAP) 162/82 (108) 162/82 162/82 Pulse Ox 94 96 O2 Delivery Nasal Cannula O2 Flow Rate 3.0 12/20/18 12/20/18 11:00 12:12 Temp 98.4 98.4 Pulse 61 Resp 22 B/P (MAP) 125/77 (93) Pulse Ox 94 96 O2 Delivery Nasal Cannula O2 Flow Rate 3.0 Intake and Output 12/19/18 12/19/18 12/20/18 15:00 23:00 07:00 Output Total 350 ml Balance -350 ml Nutrition Consultation Dietary Evaluation: Comments: REC Tube feed per following: Jevity 1.5 bolus, 1 carton in the morning, 2 cartons in the afternoon, 2 cartons in the evening w/16 oz (473 ml) w/each feeding Expected Outcomes/Goals: TF intake to meet >75% est needs Malnutrition Findings: Body Fat Depletion (Non Severe: Mild Depletion Weight Status: Appropriate KEREN UMANA MD Dec 20, 2018 12:16
[2018-12-20] MEDS: ENOXAPARIN 40 MG/0.4 ML SYRINGE. SQ SCH (12:17)
--- NOTE | 2018-12-20 13:01 | CARD ---
MR#: [id number] Date of Study: 12/20/2018 Ordering Physician: RAMOS HERNANDEZ, Referring Physician: RAMOS HERNANDEZ, Tech: Lydia García APPROVED REPORT EXAM: Two-dimensional and M-mode echocardiogram with Doppler and color Doppler. Other Information Quality : FairHR: 52bpm INDICATION Chest Pain Elevated Troponin 2D DIMENSIONS RVDd3.1 (2.9-3.5cm)Left Atrium(2D)3.7 (1.6-4.0cm) IVSd1.2 (0.7-1.1cm)Aortic Root(2D)3.8 (2.0-3.7cm) LVDd5.1 (3.9-5.9cm)LVOT Diameter2.1 (1.8-2.4cm) PWd1.1 (0.7-1.1cm)LVDs3.8 (2.5-4.0cm) FS (%) 26.3 %SV63.4 ml LVEF(%)51.3 (>50%) Aortic Valve AoV Peak Elías.118.6cm/sAoV VTI20.3cm AO Peak GR.5.6mmHgLVOT Peak Elías.76.6cm/s LVOT VTI 16.32cmAO Mean GR.3mmHg ELIZABETH (VMAX)1.67wr9HXV (VTI)2.70cm2 AI P 1/2 Fysl653ap Mitral Valve MV E Ddlqvllf06.2cm/sMV DECEL [id number] MV A Mpsdbhuw68.1cm/sMV FAM46bl E/A Ratio1.2MVA (PHT)3.62cm2 Pulmonary Valve PV Peak Yzqppcjk33.3cm/sPV Peak Grad.3mmHg Tricuspid Valve TR P. Qdtyovdz633dg/sRAP [id number] TR Peak Gr.06psSvGCZR98wqKh LEFT VENTRICLE The left ventricle is normal size. There is mild to moderate concentric left ventricular hypertrophy. The left ventricular systolic function is low normal. The Ejection Fraction is 50-55%. There is norm al LV segmental wall motion. The left ventricular diastolic function and filling is normal for age. RIGHT VENTRICLE The right ventricle is normal size. There is normal right ventricular wall thickness. The right ventr icular systolic function is normal. ATRIA The left atrium size is normal. The right atrium size is normal. The interatrial septum is intact wit h no evidence for an atrial septal defect or patent foramen ovale as noted on 2-D or Doppler imaging. AORTIC VALVE The aortic valve is not well visualized. Doppler and Color Flow revealed mild aortic regurgitation. T here is no significant aortic valvular stenosis. MITRAL VALVE The mitral valve is thickened but opens well. There is no evidence of mitral valve prolapse. There is no mitral valve stenosis. Doppler and Color-flow revealed trace mitral regurgitation. TRICUSPID VALVE The tricuspid valve is normal in structure and function. Doppler and Color Flow revealed trace tricus pid regurgitation with an estimated PAP of 23 mmHg. There is no tricuspid valve stenosis. PULMONIC VALVE The pulmonic valve is not well visualized. Doppler and Color Flow revealed no pulmonic valvular regur gitation. GREAT VESSELS The aortic root is normal in size. The IVC was not visualized. PERICARDIAL EFFUSION There is no evidence of significant pericardial effusion. Critical Notification Critical Value: No <Conclusion> The left ventricular systolic function is low normal. The Ejection Fraction is 50-55%. There is normal LV segmental wall motion. Doppler and Color Flow revealed mild aortic regurgitation. Technically difficult study Signed by : Christiano De La Fuente, Electronically Approved : 12/20/2018 13:00:22
--- NOTE | 2018-12-20 13:26 | EKG ---
[facility] [address] [place] [address] Test Date: 2018-12-20 Test Time: 13:19:25 Pat Name: JUANA BARBER Department: Room: 526 1 Gender: M Credit Officer: VINICIO : 1945 Requested By: JOSE C PENNY Order Number: [id number] Reading MD: Christiano De La Fuente MD Measurements Intervals Forbes Rate: 68 P: CT: QRS: 18 QRSD: 82 T: 24 QT: 380 QTc: 409 Interpretive Statements PROBABLE SR NON-SPECIFIC ST/T CHANGES Electronically Signed On 12-20-2018 15:17:35 CDT by Christiano De La Fuente MD
--- NOTE | 2018-12-20 13:39 | NUR ---
SW following pt. PT recommends SNU. Spoke with pt at bedside about HH options and insurance coverage. Pt reported he wants to resume home health services with [facility], phone: [phone], fax: [phone] instead of going to SNU. SW will arrange home health upon dc. Pt also reported he does not have home 02. SW will continue to evaluate needs.
[2018-12-20] MEDS: VANCOMYCIN PER PHARMACY MC PRN (14:28)
[2018-12-20 15:00] VITALS: BP 108/74
[2018-12-20 19:00] VITALS: BP 139/79
[2018-12-20] MEDS: ATORVASTATIN CALCIUM 20 MG TABLET PO SCH (21:04)
[2018-12-20] MEDS: ACETAMINOPHEN 325 MG TABLET. PO PRN (21:06)
[2018-12-20 21:57] LABS: VANC TR 10.8 mcg/mL (10.0-20.0)
[2018-12-20] MEDS: VANCOMYCIN 1 GM in IV NORMAL SALINE 250ML 250 ML IV SCH (22:02)
[2018-12-20 23:00] VITALS: BP 159/83
[2018-12-21] MEDS: PIPERACILLIN/TAZOBACTAM 3.375 GM in IV NORMAL SALINE 50ML 50 ML IV SCH ×4 (00:34→17:47)
[2018-12-21] MEDS: VANCOMYCIN PER PHARMACY MC PRN (02:51)
--- NOTE | 2018-12-21 02:51 | NUR ---
Pharmacy Vancomycin Dosing Note S:Consulted to monitor and dose vancomycin started 12/18/18. O:JUANA BARBER is a 73 year old M with Pneumonia . Height: 5 feet, 7 inches Weight: 69.229759 kg [place] Body Weight: 66.10 Adjusted Body Weight: 67.62 Dosing Weight: Actual Other Antibiotics: ZOSYN 3.375GM IV Q8H DOXYCYCLINE 100MG BID LABS: Last BUN: 21 Last Creatinine: 1.3 Creatinine Clearance: 49 mL/min Last WBC: 3.6 Last Procalcitonin: 3.61 Tmax (past 24 hours): 99.6 Microbiology: BLOOD: NGTD (AFTER 1 DAY) I/O: -/- Drug Levels: Last Trough level: 10.8 on 12/20/18 at 2130 Last dose given 12/19/18 at 2056 Vancomycin Dosing: Loading Dose: 1750MG IV X1 12/18/18 AT [facility] x1 Dosing Weight: Actual Target Trough: 15-20 A: Based on: TROUGH P: 1. Begin Vancomycin 1000 mg IV q18h 2. Follow up Trough level on 12/23/18 at 0330 3. Pharmacy will continue to monitor, follow and adjust therapy as needed. JUANA ROJAS RPH, 12/21/18250 Signed: 12/21/18 at 250 by JUANA ROJAS RPH PHA
[2018-12-21 03:00] VITALS: BP 165/82
[2018-12-21 06:45] LABS: CALCIUM 8.5 mg/dL (8.5-10.1); CREATININE 1.2 mg/dL (0.7-1.3); GFR 59.5; POTASSIUM 4.3 mmol/L (3.5-5.1)
[2018-12-21 07:00] VITALS: BP 191/98
[2018-12-21] MEDS: IPRATRPIUM/ALBUTEROL 0.5/2.5MG 3 ML NEBU. NEB SCH ×4 (07:42→20:23)
[2018-12-21] MEDS: Linaclotide (Linzess) 145 MCG PO SCH (08:17)
[2018-12-21] MEDS: SPIRONOLACTONE 25 MG TABLET PO SCH (08:17)
[2018-12-21] MEDS: LACTOBACILLUS RHAMNOSUS GG 1 CAPSULE. PO SCH ×2 (08:17→20:29)
[2018-12-21] MEDS: ASPIRIN ENTERIC COATED 81 MG TABLET.DR. PO SCH (08:17)
[2018-12-21] MEDS: OLANZapine 5 MG TABLET PO SCH (08:17)
[2018-12-21] MEDS: LANSOPRAZOLE 30 MG TAB.RAP.DR FT SCH ×2 (08:18→17:05)
[2018-12-21] MEDS: LISINOPRIL 20 MG TABLET PO SCH (08:18)
[2018-12-21] MEDS: DOXYCYCLINE HYCLATE 100 MG TABLET PO SCH ×2 (08:18→20:29)
[2018-12-21] MEDS: POLYETHYLENE GLYCOL 3350 17 GM PACKET. PO SCH ×2 (08:19→20:44)
[2018-12-21] MEDS: ESCITALOPRAM 20 MG PO SCH (08:19)
[2018-12-21] MEDS: METOPROLOL TART IMMED RELEASE 25 MG TABLET. PO SCH ×3 (08:19→20:30)
--- NOTE | 2018-12-21 09:33 | PDOC ---
PULMONARY PROGRESS NOTES Subjective PT LESS SOA HAD VIDEO Vitals Vital Signs Date Time Temp Pulse Resp B/P (MAP) Pulse Ox O2 Delivery O2 Flow Rate FiO2 12/21/18 08:19 72 191/98 12/21/18 08:15 Nasal Cannula 2.0 12/21/18 07:58 92 12/21/18 07:00 97.6 20 97.6 ROS: No Nausea, No Chest Pain, No Abdominal Pain, No Increase Cough General: Alert Lungs: Clear Cardiovascular: S1, S2 Abdomen: Soft Neuro Exam: Alert Extremities: No Edema Skin: Warm Labs Laboratory Tests Test 12/19/18 16:15 12/20/18 04:25 12/20/18 21:35 12/21/18 05:53 Troponin I Quantitative 0.586 ng/mL (0.000-0.055) 0.390 ng/mL (0.000-0.055) White Blood Count 3.6 x10^3/uL (4.0-11.0) Red Blood Count 4.00 x10^6/uL (4.30-5.70) Hemoglobin 12.1 g/dL (13.0-17.5) Hematocrit 36.2 % (39.0-53.0) Mean Corpuscular Volume 90 fL (79-100) Mean Corpuscular Hemoglobin 30 pg (25-35) Mean Corpuscular Hemoglobin Concent 33 g/dL (31-37) Red Cell Distribution Width 15.1 % (11.5-14.5) Platelet Count 151 x10^3/uL (140-400) Neutrophils (%) (Auto) 64 % (31-73) Lymphocytes (%) (Auto) 18 % (24-48) Monocytes (%) (Auto) 14 % (0-9) Eosinophils (%) (Auto) 4 % (0-3) Basophils (%) (Auto) 1 % (0-3) Neutrophils # (Auto) 2.3 x10^3uL (1.8-7.7) Lymphocytes # (Auto) 0.7 x10^3/uL (1.0-4.8) Monocytes # (Auto) 0.5 x10^3/uL (0.0-1.1) Eosinophils # (Auto) 0.1 x10^3/uL (0.0-0.7) Basophils # (Auto) 0.0 x10^3/uL (0.0-0.2) Sodium Level 137 mmol/L (136-145) 138 mmol/L (136-145) Potassium Level 4.5 mmol/L (3.5-5.1) 4.3 mmol/L (3.5-5.1) Chloride Level 103 mmol/L (98-107) 103 mmol/L (98-107) Carbon Dioxide Level 24 mmol/L (21-32) 24 mmol/L (21-32) Anion Gap 10 (6-14) 11 (6-14) Blood Urea Nitrogen 21 mg/dL (8-26) 25 mg/dL (8-26) Creatinine 1.3 mg/dL (0.7-1.3) 1.2 mg/dL (0.7-1.3) Estimated GFR (Cockcroft-Gault) 54.3 59.5 BUN/Creatinine Ratio 16 (6-20) Glucose Level 81 mg/dL (70-99) 82 mg/dL (70-99) Calcium Level 8.6 mg/dL (8.5-10.1) 8.5 mg/dL (8.5-10.1) Total Bilirubin 0.6 mg/dL (0.2-1.0) Aspartate Amino Transf (AST/SGOT) 25 U/L (15-37) Alanine Aminotransferase (ALT/SGPT) 18 U/L (16-63) Alkaline Phosphatase 68 U/L (46-116) Total Protein 6.6 g/dL (6.4-8.2) Albumin 3.0 g/dL (3.4-5.0) Albumin/Globulin Ratio 0.8 (1.0-1.7) Triglycerides Level 38 mg/dL (0-150) Cholesterol Level 79 mg/dL (0-200) LDL Cholesterol, Calculated 32 mg/dL (0-100) VLDL Cholesterol, Calculated 8 mg/dL (0-40) Non-HDL Cholesterol Calculated 40 mg/dL (0-129) HDL Cholesterol 39 mg/dL (40-60) Cholesterol/HDL Ratio 2.0 Procalcitonin 3.61 ng/mL (0.00-0.10) Thyroid Stimulating Hormone (TSH) 2.562 uIU/mL (0.358-3.74) Vancomycin Level Trough 10.8 mcg/mL (10.0-20.0) Vancomycin Last Dose Date 12/19/18 Vancomycin Last Dose Time 2200 Test 12/21/18 05:55 Procalcitonin 0.15 ng/mL (0.00-0.10) Laboratory Tests Test 12/20/18 21:35 12/21/18 05:53 12/21/18 05:55 Vancomycin Level Trough 10.8 mcg/mL (10.0-20.0) Vancomycin Last Dose Date 12/19/18 Vancomycin Last Dose Time 2200 Sodium Level 138 mmol/L (136-145) Potassium Level 4.3 mmol/L (3.5-5.1) Chloride Level 103 mmol/L (98-107) Carbon Dioxide Level 24 mmol/L (21-32) Anion Gap 11 (6-14) Blood Urea Nitrogen 25 mg/dL (8-26) Creatinine 1.2 mg/dL (0.7-1.3) Estimated GFR (Cockcroft-Gault) 59.5 Glucose Level 82 mg/dL (70-99) Calcium Level 8.5 mg/dL (8.5-10.1) Procalcitonin 0.15 ng/mL (0.00-0.10) Medications Active Scripts Medications Dose Route/Sig Max Daily Dose Days Date Category Polyethylene Glycol 3350 2,500 Gm Powder 17 Gm PO BIDAC 12/19/18 Reported Zyprexa (Olanzapine) 5 Mg Tablet 5 Mg PO DAILY 12/19/18 Reported Zyprexa (Olanzapine) 2.5 Mg Tablet 1 Tab PO QHS 12/19/18 Reported Morphine 1 mg/2 ml Syringe (Morphine Sulfate/Pf) 1 Mg/2 Ml Syringe 2 Mg IV Q2H 12/19/18 Reported Metoprolol Tartrate 25 Mg Tablet 0.5 Tab PO BID 12/19/18 Reported Lisinopril 20 Mg Tablet 1 Tab PO DAILY 12/19/18 Reported Linzess (Linaclotide) 145 Mcg Capsule 145 Mcg PO DAILY07 12/19/18 Reported Lansoprazole 30 Mg Capsule.dr 30 Mg PO DAILY PRN 12/19/18 Reported Acidophilus (Lactobacillus Acidophilus) 1 Each Capsule 1 Each PO BID PRN 12/19/18 Reported Heparin 5,000 Unit/1,000 ml-Ns (Heparin Sod,Porcine/0.9 % NaCl) 5,000 Unit/1000 Ml Iv.soln 5,000 Unit IV Q8HRS PRN 12/19/18 Reported Lanoxin (Digoxin) 250 Mcg/1 Ml Ampul 250 Mcg IJ PRN Q6HRS PRN 12/19/18 Reported Celexa (Citalopram Hydrobromide) 40 Mg Tablet 1 Tab PO DAILY 12/19/18 Reported Atorvastatin Calcium 20 Mg Tablet 20 Mg PO HS PRN 12/19/18 Reported Aspirin Ec (Aspirin) 81 Mg Tablet.dr 81 Mg PO QODAY 12/19/18 Reported Impression . IMPRESSION: 1. Recurrent aspiration pneumonia. 2. Acute respiratory failure secondary to recurrent aspiration pneumonia. 3. Abnormal CT chest related to recurrent aspiration pneumonia. 4. History of tongue cancer, status post chemoradiation with dysphagia, status post gastric tube placement. 5. Chronic malnutrition present upon admission, status post gastrostomy tube placement. 6. Tobacco dependence, quit in 2004. 7. Multiple other comorbidities as indicated above. Plan . IMPROVING NPO FAILED VIDEO AVOID CAFFIENE D/W PT WILL CONTINUE SAME ANTIBX KIYA JOHNSON MD Dec 21, 2018 09:33
[2018-12-21 11:00] VITALS: BP 144/78
[2018-12-21] MEDS: ENOXAPARIN 40 MG/0.4 ML SYRINGE. SQ SCH (11:42)
--- NOTE | 2018-12-21 12:14 | PDOC ---
PROGRESS NOTES Chief Complaint Chief Complaint 1. Recurrent aspiration pneumonia. 2. Acute respiratory failure secondary to recurrent aspiration pneumonia. 3. Abnormal CT chest related to recurrent aspiration pneumonia. 4. History of tongue cancer, status post chemoradiation with dysphagia, status post gastric tube placement. 5. Chronic malnutrition present upon admission, status post gastrostomy tube placement. 6. Tobacco dependence, quit in 2004. 7. Multiple other comorbidities as indicated above. 8. Recurrent pneumonia, dysphagia, NELSON-PRES[place] in place 9. 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 NSTEMI, CAD hx History of Present Illness History of Present Illness ASleep did not awaken He failed video swallow yesterday by [employer] Nothing by mouth He will go home with current home health [facility] PEG Cornelio button and on bolus TF at home Blood pressure high on beta jeremy 12.5 twice a day Blood culture preliminary 2 days negative Continue empiric Vanco and Zosyn per ID Also on by mouth doxycycline Plan continue IV antibiotics per ID I will discharge back with [facility] once shifted to oral or okayed by ID Increase beta jeremy to 25 twice a day Vitals Vitals Vital Signs Date Time Temp Pulse Resp B/P (MAP) Pulse Ox O2 Delivery O2 Flow Rate FiO2 12/21/18 12:01 60 144/78 12/21/18 11:17 92 Nasal Cannula 2.0 12/21/18 11:00 97.6 14 97.6 Physical Exam Physical Exam GENERAL: Alert, oriented x 3 male lying in bed in no acute distress. HEENT: Normocephalic, atraumatic, slight restriction in speech because of tongue surgery. No icterus. No thrush. NECK: Supple. LUNGS: Decreased breath sounds at bases. HEART: S1, S2. No rubs, gallops, or murmurs. ABDOMEN: Soft, mildly distended. PEG tube site looks okay. No evidence of infection. There is a small abdominal wall hematoma on the right upper quadrant, mildly tender. No fluctuance. No masses felt. No rebound, no guarding. EXTREMITIES: No edema, no cyanosis. NEUROLOGIC: Alert and oriented x 3. Grossly nonfocal. General: Alert, Cooperative, No acute distress Heart: Regular rate, Other (distant heart sounds) Lungs: Clear Abdomen: Soft, Other (diffuse abd tenderness with palpation, PEG tube in place) Extremities: No cyanosis, No edema Skin: No breakdown, No significant lesion Labs LABS Laboratory Tests Test 12/20/18 21:35 12/21/18 05:53 12/21/18 05:55 Vancomycin Level Trough 10.8 mcg/mL (10.0-20.0) Vancomycin Last Dose Date 12/19/18 Vancomycin Last Dose Time 2200 Sodium Level 138 mmol/L (136-145) Potassium Level 4.3 mmol/L (3.5-5.1) Chloride Level 103 mmol/L (98-107) Carbon Dioxide Level 24 mmol/L (21-32) Anion Gap 11 (6-14) Blood Urea Nitrogen 25 mg/dL (8-26) Creatinine 1.2 mg/dL (0.7-1.3) Estimated GFR (Cockcroft-Gault) 59.5 Glucose Level 82 mg/dL (70-99) Calcium Level 8.5 mg/dL (8.5-10.1) Procalcitonin 0.15 ng/mL (0.00-0.10) Review of Systems Review of Systems Asleep I did not awaken Comment Review of Relevant I have reviewed the following items edi (where applicable) has been applied. Labs Laboratory Tests Test 12/19/18 16:15 12/20/18 04:25 12/20/18 21:35 12/21/18 05:53 Troponin I Quantitative 0.586 ng/mL (0.000-0.055) 0.390 ng/mL (0.000-0.055) White Blood Count 3.6 x10^3/uL (4.0-11.0) Red Blood Count 4.00 x10^6/uL (4.30-5.70) Hemoglobin 12.1 g/dL (13.0-17.5) Hematocrit 36.2 % (39.0-53.0) Mean Corpuscular Volume 90 fL (79-100) Mean Corpuscular Hemoglobin 30 pg (25-35) Mean Corpuscular Hemoglobin Concent 33 g/dL (31-37) Red Cell Distribution Width 15.1 % (11.5-14.5) Platelet Count 151 x10^3/uL (140-400) Neutrophils (%) (Auto) 64 % (31-73) Lymphocytes (%) (Auto) 18 % (24-48) Monocytes (%) (Auto) 14 % (0-9) Eosinophils (%) (Auto) 4 % (0-3) Basophils (%) (Auto) 1 % (0-3) Neutrophils # (Auto) 2.3 x10^3uL (1.8-7.7) Lymphocytes # (Auto) 0.7 x10^3/uL (1.0-4.8) Monocytes # (Auto) 0.5 x10^3/uL (0.0-1.1) Eosinophils # (Auto) 0.1 x10^3/uL (0.0-0.7) Basophils # (Auto) 0.0 x10^3/uL (0.0-0.2) Sodium Level 137 mmol/L (136-145) 138 mmol/L (136-145) Potassium Level 4.5 mmol/L (3.5-5.1) 4.3 mmol/L (3.5-5.1) Chloride Level 103 mmol/L (98-107) 103 mmol/L (98-107) Carbon Dioxide Level 24 mmol/L (21-32) 24 mmol/L (21-32) Anion Gap 10 (6-14) 11 (6-14) Blood Urea Nitrogen 21 mg/dL (8-26) 25 mg/dL (8-26) Creatinine 1.3 mg/dL (0.7-1.3) 1.2 mg/dL (0.7-1.3) Estimated GFR (Cockcroft-Gault) 54.3 59.5 BUN/Creatinine Ratio 16 (6-20) Glucose Level 81 mg/dL (70-99) 82 mg/dL (70-99) Calcium Level 8.6 mg/dL (8.5-10.1) 8.5 mg/dL (8.5-10.1) Total Bilirubin 0.6 mg/dL (0.2-1.0) Aspartate Amino Transf (AST/SGOT) 25 U/L (15-37) Alanine Aminotransferase (ALT/SGPT) 18 U/L (16-63) Alkaline Phosphatase 68 U/L (46-116) Total Protein 6.6 g/dL (6.4-8.2) Albumin 3.0 g/dL (3.4-5.0) Albumin/Globulin Ratio 0.8 (1.0-1.7) Triglycerides Level 38 mg/dL (0-150) Cholesterol Level 79 mg/dL (0-200) LDL Cholesterol, Calculated 32 mg/dL (0-100) VLDL Cholesterol, Calculated 8 mg/dL (0-40) Non-HDL Cholesterol Calculated 40 mg/dL (0-129) HDL Cholesterol 39 mg/dL (40-60) Cholesterol/HDL Ratio 2.0 Procalcitonin 3.61 ng/mL (0.00-0.10) Thyroid Stimulating Hormone (TSH) 2.562 uIU/mL (0.358-3.74) Vancomycin Level Trough 10.8 mcg/mL (10.0-20.0) Vancomycin Last Dose Date 12/19/18 Vancomycin Last Dose Time 220 Test 12/21/18 05:55 Procalcitonin 0.15 ng/mL (0.00-0.10) Laboratory Tests Test 12/20/18 21:35 12/21/18 05:53 12/21/18 05:55 Vancomycin Level Trough 10.8 mcg/mL (10.0-20.0) Vancomycin Last Dose Date 12/19/18 Vancomycin Last Dose Time 2200 Sodium Level 138 mmol/L (136-145) Potassium Level 4.3 mmol/L (3.5-5.1) Chloride Level 103 mmol/L (98-107) Carbon Dioxide Level 24 mmol/L (21-32) Anion Gap 11 (6-14) Blood Urea Nitrogen 25 mg/dL (8-26) Creatinine 1.2 mg/dL (0.7-1.3) Estimated GFR (Cockcroft-Gault) 59.5 Glucose Level 82 mg/dL (70-99) Calcium Level 8.5 mg/dL (8.5-10.1) Procalcitonin 0.15 ng/mL (0.00-0.10) Microbiology 12/19/18 Blood Culture - Preliminary, Resulted NO GROWTH AFTER 2 DAYS Medications Current Medications Sodium Chloride 1,000 ml @ 60 mls/hr [id number] IV Last administered on at 17:11; Start 12/18/18 at 23:45; Stop 12/20/18 at 12:17; Status DC Piperacillin Sod/ Tazobactam Sod (Zosyn Per Pharmacy) 1 each PRN DAILY PRN MC SEE COMMENTS; Start 12/19/18 at 00:15 Levofloxacin/ Dextrose (Levaquin Per Pharmacy) 1 each PRN DAILY PRN MC SEE COMMENTS; Start 12/19/18 at 00:15; Stop 12/19/18 at 15:02; Status DC Vancomycin HCl (Vanco Per Pharmacy) 1 each PRN DAILY PRN MC SEE COMMENTS Last administered on 12/21/18at 02:51; Start 12/19/18 at 00:30 Levofloxacin/ Dextrose 150 ml @ 100 mls/hr Q24H IV ; Start 12/19/18 at 19:00; Stop 12/19/18 at 19:00; Status DC Piperacillin Sod/ Tazobactam Sod 4.5 gm/Sodium Chloride 100 ml @ 200 mls/hr Q8HRS IV Last administered on 12/19/18at 13:55; Start 12/19/18 at 06:00; Stop at 15:05; Status DC Vancomycin HCl 1 gm/Sodium Chloride 250 ml @ 250 mls/hr Q24H IV Last administered on 12/20/18at 22:02; Start 12/19/18 at 22:00; Stop 12/21/18 at 03:00 ; Status DC Vancomycin HCl (Vancomycin Trough Level) 1 each 1X ONCE MC Last administered on 12/20/18at 21:30; Start 12/20/18 at 21:30; Stop 12/20/18 at 21:31; Status DC Albuterol/ Ipratropium (Duoneb) 3 ml RTQID NEB Last administered on 12/21/18at 11:08; Start 12/19/18 at 08:00 Hydromorphone HCl (Dilaudid) 0.5 mg PRN Q4HRS PRN IVP PAIN; Start 12/19/18 at 06:30 Ondansetron HCl (Zofran) 4 mg PRN Q6HRS PRN IV NAUSEA/VOMITING; Start 12/19/18 at 06:30; Status Cancel Pantoprazole Sodium (PROTONIX VIAL for IV PUSH) 40 mg DAILYAC IVP Last administered on 12/19/18at 08:05; Start 12/19/18 at 07:30; Stop 12/19/18 at 14:26 ; Status DC Doxycycline Hyclate (Vibra-Tab) 100 mg BID PO Last administered on 12/21/18at 08 :18; Start 12/19/18 at 09:30 Enoxaparin Sodium (Lovenox 40mg Syringe) 40 mg Q24H SQ Last administered on at 11:42; Start 12/19/18 at 11:00 Aspirin (Ecotrin) 81 mg DAILY08 PO Last administered on 12/21/18 08:17; Start 12/19/18 at 14:30 Atorvastatin Calcium (Lipitor) 20 mg HS PO Last administered on 12/20/18at 21:04 ; Start 12/19/18 at 21:00 Digoxin (Lanoxin) 250 mcg PRN Q6HRS PRN IV heart rate; Start 12/19/18 at 13:30 Lisinopril (Prinivil) 20 mg DAILY PO Last administered on 12/20/18 08:18; Start 12/19/18 at 14:30; Stop 12/21/18 at 08:06; Status DC Metoprolol Tartrate (Lopressor) 12.5 mg BID PO Last administered on 12/21/18 08:19; Start 12/19/18 at 21:00; Stop 12/21/18 at 09:06; Status DC Citalopram Hydrobromide (CeleXA) 40 mg DAILY PO ; Start 12/19/18 at 14:30; Stop 12/19/18 at 17:07; Status DC Lactobacillus Rhamnosus (Culturelle) 1 cap BID PO Last administered on 08:17; Start 12/19/18 at 21:00 Lansoprazole (Prevacid) 30 mg DAILY FT Last administered on 12/20/18 08:17; Start 12/19/18 at 15:00; Stop 12/20/18 at 15:25; Status DC Non-Formulary Medication (Linaclotide (Linzess)) 145 mcg DAILY07 PO Last administered on 12/21/18 08:17; Start 12/19/18 at 17:30 Olanzapine (ZyPREXA) 2.5 mg QHS PO Last administered on 12/20/18 08:17; Start 12/19/18 at 21:00 Olanzapine (ZyPREXA) 5 mg DAILY PO Last administered on 12/21/18 08:17; Start 12/20/18 at 09:00 Polyethylene Glycol (miraLAX PACKET) 17 gm BIDAC PO ; Start 12/19/18 at 16:30; Stop 12/19/18 at 16:53; Status DC Piperacillin Sod/ Tazobactam Sod 3.375 gm/Sodium Chloride 50 ml @ 100 mls/hr Q6HRS IV Last administered on 12/21/18at 12:01; Start 12/19/18 at 19:00 Spironolactone (Aldactone) 25 mg DAILY PO Last administered on 12/21/18at 08:17 ; Start 12/19/18 at 15:30 Ondansetron HCl (Zofran) 4 mg PRN Q4HRS PRN IV NAUSEA/VOMITING; Start 12/19/18 at 15:15 Zolpidem Tartrate (Ambien) 5 mg PRN QHS PRN PO INSOMNIA; Start 12/19/18 at 15: 15 Acetaminophen (Tylenol) 650 mg PRN Q4HRS PRN PO TEMP OVER 100.4F OR MILD PAIN Last administered on 12/20/18at 21:06; Start 12/19/18 at 15:15 Clonidine HCl (Catapres) 0.1 mg PRN Q6HRS PRN PO SBP>160 OR DBP>90 Last administered on 12/20/18at 03:30; Start 12/19/18 at 15:15 Sodium Monofluorophosphate (Fleet Adult) 133 ml PRN DAILY PRN [place] CONSTIPATION; Start 12/19/18 at 15:15 Docusate Sodium (Colace) 100 mg PRN BID PRN PO CONSTIPATION; Start 12/19/18 at 15:15 Lorazepam (Ativan) 0.5 mg PRN Q4HRS PRN PO ANXIETY / AGITATION; Start 12/19/18 at 15:15 Polyethylene Glycol (miraLAX PACKET) 17 gm BID PO Last administered on at 08:19; Start 12/19/18 at 21:00 Lansoprazole (Prevacid) 30 mg DAILY FT ; Start 12/20/18 at 09:00; Status UNV Non-Formulary Medication 1 ea DAILY PO Last administered on 12/21/18at 08:19; Start 12/20/18 at 09:00 Hydralazine HCl (Apresoline Inj) 10 mg PRN Q4HRS PRN IVP ELEVATED BP, SEE COMMENTS; Start 12/20/18 at 08:45 Barium Sulfate (Varibar Thin Liquid Apple) 148 gm 1X ONCE PO Last administered on 12/20/18at 10:45; Start 12/20/18 at 10:45; Stop 12/20/18 at 10:46 ; Status DC Lansoprazole (Prevacid) 30 mg BIDAC FT Last administered on 12/21/18at 08:18; Start 12/20/18 at 16:30 Vancomycin HCl 1 gm/Sodium Chloride 250 ml @ 250 mls/hr Q18H IV ; Start at 16:00 Vancomycin HCl (Vancomycin Trough Level) 1 each 1X ONCE MC ; Start 12/23/18 at 03:30; Stop 12/23/18 at 03:31 Lisinopril (Prinivil) 40 mg DAILY PO Last administered on 12/21/18at 08:18; Start 12/21/18 at 09:00 Metoprolol Tartrate (Lopressor) 25 mg BID PO Last administered on 12/21/18at 12: 01; Start 12/21/18 at 09:10 Active Scripts Active Reported Polyethylene Glycol 3350 2,500 Gm Powder 17 Gm PO BIDAC Zyprexa (Olanzapine) 5 Mg Tablet 5 Mg PO DAILY Zyprexa (Olanzapine) 2.5 Mg Tablet 1 Tab PO QHS Morphine 1 mg/2 ml Syringe (Morphine Sulfate/Pf) 1 Mg/2 Ml Syringe 2 Mg IV Q2H Metoprolol Tartrate 25 Mg Tablet 0.5 Tab PO BID Lisinopril 20 Mg Tablet 1 Tab PO DAILY Linzess (Linaclotide) 145 Mcg Capsule 145 Mcg PO DAILY07 Lansoprazole 30 Mg Capsule.dr 30 Mg PO DAILY PRN Acidophilus (Lactobacillus Acidophilus) 1 Each Capsule 1 Each PO BID PRN Heparin 5,000 Unit/1,000 ml-Ns (Heparin Sod,Porcine/0.9 % NaCl) 5,000 Unit/1000 Ml Iv.soln 5,000 Unit IV Q8HRS PRN Lanoxin (Digoxin) 250 Mcg/1 Ml Ampul 250 Mcg IJ PRN Q6HRS PRN Celexa (Citalopram Hydrobromide) 40 Mg Tablet 1 Tab PO DAILY Atorvastatin Calcium 20 Mg Tablet 20 Mg PO HS PRN Aspirin Ec (Aspirin) 81 Mg Tablet.dr 81 Mg PO QODAY Vitals/I & O Vital Sign - Last 24 Hours 3/2812/20/18 12/20/18 12/20/18 15:00 16:41 19:00 19:45 Temp 98.5 97.4 98.5 97.4 Pulse 65 68 Resp 22 16 B/P (MAP) 108/74 (85) 139/79 (99) Pulse Ox 96 96 91 O2 Delivery Nasal Cannula Nasal Cannula Nasal Cannula O2 Flow Rate 2.0 4.0 2.0 12/20/18 12/20/18 12/20/18 12/21/18 19:55 21:04 23:00 03:00 Temp 98.7 97.4 98.7 97.4 Pulse 68 61 60 Resp 22 22 B/P (MAP) 139/79 159/83 (108) 165/82 (109) Pulse Ox 91 92 O2 Delivery Nasal Cannula Nasal Cannula Nasal Cannula O2 Flow Rate 2.0 2.0 3.0 12/21/18 12/21/18 12/21/18 12/21/18 07:00 07:58 08:15 08:18 Temp 97.6 97.6 Pulse 72 72 Resp 20 B/P (MAP) 191/98 (129) 191/98 Pulse Ox 96 92 O2 Delivery Nasal Cannula Nasal Cannula Nasal Cannula O2 Flow Rate 3.0 2.0 2.0 12/21/18 12/21/18 12/21/18 12/21/18 08:19 11:00 11:17 12:01 Temp 97.6 97.6 Pulse 72 60 60 Resp 14 B/P (MAP) 191/98 144/78 (100) 144/78 Pulse Ox 95 92 O2 Delivery Nasal Cannula Nasal Cannula O2 Flow Rate 3.0 2.0 Intake and Output 12/20/18 12/20/18 12/21/18 15:00 23:00 07:00 Intake Total 1000 ml 300 ml Output Total 200 ml Balance 1000 ml -200 ml 300 ml Nutrition Consultation Dietary Evaluation: Comments: REC Tube feed per following: Jevity 1.5 bolus, 1 carton in the morning, 2 cartons in the afternoon, 2 cartons in the evening w/16 oz (473 ml) w/each feeding Expected Outcomes/Goals: TF intake to meet >75% est needs Malnutrition Findings: Body Fat Depletion (Non Severe: Mild Depletion Weight Status: Appropriate KEREN UMANA MD Dec 21, 2018 12:14
--- NOTE | 2018-12-21 12:17 | PDOC ---
Infectious Disease Note Subjective: Subjective Patient states he feels a little better Has some abdominal pain Denies any fever, chills, nausea, vomiting Has Cough and shortness of breath ROS: ROS Negative except for above. Vital Signs: Vital Signs Vital Signs Date Time Temp Pulse Resp B/P (MAP) Pulse Ox O2 Delivery O2 Flow Rate FiO2 12/21/18 12:01 60 144/78 12/21/18 11:17 92 Nasal Cannula 2.0 12/21/18 11:00 97.6 14 97.6 Physical Exam: PHYSICAL EXAM GENERAL: Alert, oriented x 3 male lying in bed in no acute distress. HEENT: Normocephalic, atraumatic, slight restriction in speech because of tongue surgery. No icterus. No thrush. NECK: Supple. LUNGS: Decreased breath sounds at bases. HEART: S1, S2. No rubs, gallops, or murmurs. ABDOMEN: Soft, mildly distended. PEG tube site looks okay. No evidence of infection. There is a small abdominal wall hematoma on the right upper quadrant, mildly tender. No fluctuance. No masses felt. No rebound, no guarding. EXTREMITIES: No edema, no cyanosis. NEUROLOGIC: Alert and oriented x 3. Grossly nonfocal. Medications: Inpatient Meds: Current Medications Medications (Trade) Dose Ordered Sig/Héctor Start Time Stop Time Status Last Admin Dose Admin Acetaminophen (Tylenol) 650 mg PRN Q4HRS PRN 12/19/18 15:15 12/20/18 21:06 650 MG Albuterol/ Ipratropium (Duoneb) 3 ml RTQID 12/19/18 08:00 12/21/18 11:08 3 ML Aspirin (Ecotrin) 81 mg DAILY08 12/19/18 14:30 12/21/18 08:17 81 MG Atorvastatin Calcium (Lipitor) 20 mg HS 12/19/18 21:00 12/20/18 21:04 20 MG Barium Sulfate (Varibar Thin Liquid Apple) 148 gm 1X ONCE 12/20/18 10:45 12/20/18 10:46 DC 12/20/18 10:45 148 GM Citalopram Hydrobromide (CeleXA) 40 mg DAILY 12/19/18 14:30 12/19/18 17:07 DC Clonidine HCl (Catapres) 0.1 mg PRN Q6HRS PRN 12/19/18 15:15 12/20/18 03:30 0.1 MG Digoxin (Lanoxin) 250 mcg PRN Q6HRS PRN 12/19/18 13:30 Docusate Sodium (Colace) 100 mg PRN BID PRN 12/19/18 15:15 Doxycycline Hyclate (Vibra-Tab) 100 mg BID 12/19/18 09:30 12/21/18 08:18 100 MG Enoxaparin Sodium (Lovenox 40mg Syringe) 40 mg Q24H 12/19/18 11:00 12/21/18 11:42 40 MG Hydralazine HCl (Apresoline Inj) 10 mg PRN Q4HRS PRN 12/20/18 08:45 Hydromorphone HCl (Dilaudid) 0.5 mg PRN Q4HRS PRN 12/19/18 06:30 Lactobacillus Rhamnosus (Culturelle) 1 cap BID 12/19/18 21:00 12/21/18 08:17 1 CAP Lansoprazole (Prevacid) 30 mg BIDAC 12/20/18 16:30 12/21/18 08:18 30 MG Levofloxacin/ Dextrose 150 ml @ 100 mls/hr Q24H 12/19/18 19:00 12/19/18 19:00 DC Levofloxacin/ Dextrose (Levaquin Per Pharmacy) 1 each PRN DAILY PRN 12/19/18 00:15 12/19/18 15:02 DC Lisinopril (Prinivil) 40 mg DAILY 12/21/18 09:00 12/21/18 08:18 40 MG Lorazepam (Ativan) 0.5 mg PRN Q4HRS PRN 12/19/18 15:15 Metoprolol Tartrate (Lopressor) 25 mg BID 12/21/18 09:10 12/21/18 12:01 12.5 MG Non-Formulary Medication 1 ea DAILY 12/20/18 09:00 12/21/18 08:19 1 EA Non-Formulary Medication (Linaclotide (Linzess)) 145 mcg DAILY07 12/19/18 17:30 12/21/18 08:17 145 MCG Olanzapine (ZyPREXA) 5 mg DAILY 12/20/18 09:00 12/21/18 08:17 5 MG Ondansetron HCl (Zofran) 4 mg PRN Q4HRS PRN 12/19/18 15:15 Pantoprazole Sodium (PROTONIX VIAL for IV PUSH) 40 mg DAILYAC 12/19/18 07:30 12/19/18 14:26 DC 12/19/18 08:05 40 MG Piperacillin Sod/ Tazobactam Sod (Zosyn Per Pharmacy) 1 each PRN DAILY PRN 12/19/18 00:15 Piperacillin Sod/ Tazobactam Sod 3.375 gm/Sodium Chloride 50 ml @ 100 mls/hr Q6HRS 12/19/18 19:00 12/21/18 12:01 100 MLS/HR Piperacillin Sod/ Tazobactam Sod 4.5 gm/Sodium Chloride 100 ml @ 200 mls/hr Q8HRS 12/19/18 06:00 12/19/18 15:05 DC 12/19/18 13:55 200 MLS/HR Polyethylene Glycol (miraLAX PACKET) 17 gm BID 12/19/18 21:00 12/21/18 08:19 17 GM Sodium Monofluorophosphate (Fleet Adult) 133 ml PRN DAILY PRN 12/19/18 15:15 Sodium Chloride 1,000 ml @ 60 mls/hr [id number] 12/18/18 23:45 12/20/18 12:17 DC 12/19/18 17:11 60 MLS/HR Spironolactone (Aldactone) 25 mg DAILY 12/19/18 15:30 12/21/18 08:17 25 MG Vancomycin HCl (Vanco Per Pharmacy) 1 each PRN DAILY PRN 12/19/18 00:30 12/21/18 02:51 1 EACH Vancomycin HCl (Vancomycin Trough Level) 1 each 1X ONCE 12/23/18 03:30 12/23/18 03:31 Vancomycin HCl 1 gm/Sodium Chloride 250 ml @ 250 mls/hr Q18H 12/21/18 16:00 Zolpidem Tartrate (Ambien) 5 mg PRN QHS PRN 12/19/18 15:15 Labs: Lab Laboratory Tests Test 12/20/18 21:35 12/21/18 05:53 12/21/18 05:55 Vancomycin Level Trough 10.8 mcg/mL (10.0-20.0) Vancomycin Last Dose Date 12/19/18 Vancomycin Last Dose Time 2200 Sodium Level 138 mmol/L (136-145) Potassium Level 4.3 mmol/L (3.5-5.1) Chloride Level 103 mmol/L (98-107) Carbon Dioxide Level 24 mmol/L (21-32) Anion Gap 11 (6-14) Blood Urea Nitrogen 25 mg/dL (8-26) Creatinine 1.2 mg/dL (0.7-1.3) Estimated GFR (Cockcroft-Gault) 59.5 Glucose Level 82 mg/dL (70-99) Calcium Level 8.5 mg/dL (8.5-10.1) Procalcitonin 0.15 ng/mL (0.00-0.10) Objective: Assessment: Fever at [facility] prior to admission at [facility]. Abdominal pain. . Right lung infiltrate. Renal insufficiency History of cancer of the tongue. History of urinary retention, status post self-catheterization. History of bipolar disorder, panic disorder, obsessive compulsive disorder, depression. History of gastroparesis, anorexia, Pastrana's esophagus, status post PEG tube placement. Plan: Plan of Care Continue empiric Zosyn and doxycycline DC IV Vanc Follow up cultures here.None available from [place] Follow up labs in a.m Continue supportive care. D/W KATIE SALGADO MD Dec 21, 2018 12:17
--- NOTE | 2018-12-21 12:48 | PDOC ---
Subjective: Subjective: "I think I still got pneumonia." Objective: Vital Signs: Vital Signs Date Time Temp Pulse Resp B/P (MAP) Pulse Ox O2 Delivery O2 Flow Rate FiO2 12/21/18 12:01 60 144/78 12/21/18 11:17 92 Nasal Cannula 2.0 12/21/18 11:00 97.6 14 97.6 Labs: Laboratory Tests Test 12/20/18 21:35 12/21/18 05:53 12/21/18 05:55 Vancomycin Level Trough 10.8 mcg/mL Vancomycin Last Dose Date 12/19/18 Vancomycin Last Dose Time 2200 Sodium Level 138 mmol/L Potassium Level 4.3 mmol/L Chloride Level 103 mmol/L Carbon Dioxide Level 24 mmol/L Anion Gap 11 Blood Urea Nitrogen 25 mg/dL Creatinine 1.2 mg/dL Estimated GFR (Cockcroft-Gault) 59.5 Glucose Level 82 mg/dL Calcium Level 8.5 mg/dL Procalcitonin 0.15 ng/mL BLOOD CULTURE Preliminary NO GROWTH AFTER 2 DAYS Imaging: Initial Videoswallow Study Report Videoswallow study completed. Pt has NELSON-PRESLEY button. Pt admitted to drinking "3 cups of coffee once a week." IMPRESSIONS: Greater than mild amts of silent aspiration on tsp amts of thin, nectar and honey thick liquids w/and w/o chintuck. In fact, chintuck INCREASED amt of aspiration. Oropharyngeal delay, reduced hyolaryngeal excursion and impaired base of tongue retraction contributed to dysphagia and aspiration. No safe consistency or effective strategies identified. Suspect changes p.prior XRT contribute to current dysphagia. RECOMMENDATIONS: NPO meds and nutrition. Results explained to pt along w/risk of aspiration and related complications w/po intake. Will f/u. Full rpt to follow. Results dw FLORIN Morfin and pt. PE: GEN: NAD LUNGS: NC, wet coughs HEART: RRR ABD: NABS, S/ND/NT, NELSON-PRESLEY in place NEURO/PSYCH: A & O 3, anxious A/P: Recurrent pneumonia, dysphagia/aspiration, NELSON-PRESLEY in place Psych issues, IBS, Pastrana's esophagus -- Continue same per GI. LOUIE SHARP Dec 21, 2018 12:48
[2018-12-21] MEDS: ACETAMINOPHEN 325 MG TABLET. PO PRN (14:31)
[2018-12-21 15:00] VITALS: BP 124/64
--- NOTE | 2018-12-21 15:53 | NUR ---
SW following pt. Spoke with pt and he reported he gets his PEG feeding nutrition supply via [facility], phone: [phone] ([phone]), fax: [phone] and had recently received a new shipment. [place] resumption order can be faxed to [facility], phone: [phone], fax: [phone] upon dc. Discussed with RN.
[2018-12-21] MEDS ORDERED: VANCOMYCIN 1 GM in IV NORMAL SALINE 250ML 250 ML IV SCH (16:00)
[2018-12-21 19:00] VITALS: BP 118/62
[2018-12-21] MEDS: ATORVASTATIN CALCIUM 20 MG TABLET PO SCH (20:29)
[2018-12-21] MEDS: OLANZapine 2.5 MG TABLET PO SCH (20:29)
[2018-12-21 22:52] VITALS: BP 136/78
[2018-12-22] MEDS: PIPERACILLIN/TAZOBACTAM 3.375 GM in IV NORMAL SALINE 50ML 50 ML IV SCH ×5 (00:14→23:50)
[2018-12-22 03:00] VITALS: BP 140/95
[2018-12-22 07:00] VITALS: BP 169/99
[2018-12-22] MEDS: Linaclotide (Linzess) 145 MCG PO SCH (07:00)
[2018-12-22] MEDS: IPRATRPIUM/ALBUTEROL 0.5/2.5MG 3 ML NEBU. NEB SCH ×4 (07:09→18:18)
[2018-12-22] MEDS: LANSOPRAZOLE 30 MG TAB.RAP.DR FT SCH ×2 (07:30→17:10)
[2018-12-22] MEDS: ESCITALOPRAM 20 MG PO SCH (08:10)
[2018-12-22] MEDS: LISINOPRIL 20 MG TABLET PO SCH (08:11)
[2018-12-22] MEDS: SPIRONOLACTONE 25 MG TABLET PO SCH (08:12)
[2018-12-22] MEDS: ASPIRIN ENTERIC COATED 81 MG TABLET.DR. PO SCH (08:13)
[2018-12-22] MEDS: METOPROLOL TART IMMED RELEASE 25 MG TABLET. PO SCH ×2 (08:13→20:21)
[2018-12-22] MEDS: LACTOBACILLUS RHAMNOSUS GG 1 CAPSULE. PO SCH ×2 (08:14→20:20)
[2018-12-22] MEDS: DOXYCYCLINE HYCLATE 100 MG TABLET PO SCH ×2 (08:14→20:20)
[2018-12-22] MEDS: OLANZapine 5 MG TABLET PO SCH (08:15)
[2018-12-22] MEDS: POLYETHYLENE GLYCOL 3350 17 GM PACKET. PO SCH ×2 (08:27→20:21)
--- NOTE | 2018-12-22 09:36 | PDOC ---
PROGRESS NOTES Chief Complaint Chief Complaint 1. Recurrent aspiration pneumonia. 2. Acute respiratory failure secondary to recurrent aspiration pneumonia. 3. Abnormal CT chest related to recurrent aspiration pneumonia. 4. History of tongue cancer, status post chemoradiation with dysphagia, status post gastric tube placement. 5. Chronic malnutrition present upon admission, status post gastrostomy tube placement. 6. Tobacco dependence, quit in 2004. 7. Multiple other comorbidities as indicated above. 8. Recurrent pneumonia, dysphagia, NELSON-PRESLEY in place 9. 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 NSTEMI, CAD hx\ 12. NON sustained V. tach 12/22/18, asymptomatic History of Present Illness History of Present Illness ASleep did not awaken But RN just handed me greater than 10 beat run of nonsustained V. tach. Patient on beta jeremy 25 twice a day and digoxin IV 1 Cards on board Patient was asleep did not complain of symptoms. Blood pressure 140s systolic during that time Plan: informed cardiology about the nonsustained V. tach He failed video swallow yesterday by [facility] Nothing by mouth He has an indwelling Cornelio button and has bolus feeding at home He will go home with current home health Continue empiric Vanco and Zosyn per ID Also on by mouth doxycycline by ID Vitals Vitals Vital Signs Date Time Temp Pulse Resp B/P (MAP) Pulse Ox O2 Delivery O2 Flow Rate FiO2 12/22/18 08:13 75 140/95 12/22/18 07:11 89 Room Air 12/22/18 07:00 97.8 24 3.0 97.8 Physical Exam Physical Exam GENERAL: Alert, oriented x 3 male lying in bed in no acute distress. HEENT: Normocephalic, atraumatic, slight restriction in speech because of tongue surgery. No icterus. No thrush. NECK: Supple. LUNGS: Decreased breath sounds at bases. HEART: S1, S2. No rubs, gallops, or murmurs. ABDOMEN: Soft, mildly distended. PEG tube site looks okay. No evidence of infection. There is a small abdominal wall hematoma on the right upper quadrant, mildly tender. No fluctuance. No masses felt. No rebound, no guarding. EXTREMITIES: No edema, no cyanosis. NEUROLOGIC: Alert and oriented x 3. Grossly nonfocal. General: Alert, Cooperative, No acute distress Heart: Regular rate, Other (distant heart sounds) Lungs: Clear Abdomen: Soft, Other (diffuse abd tenderness with palpation, PEG tube in place) Extremities: No cyanosis, No edema Skin: No breakdown, No significant lesion Review of Systems Review of Systems A 14 point ROS was completed with the following noted as positive: Other systems reviewed and negative. \CONSTITUTIONAL: No fever or chills EYES: No recent changes SKIN: No rash or itching CARDIOVASCULAR: No chest pain, syncope, palpitations, or edema RESPIRATORY: No SOB or cough GASTROINTESTINAL: No nausea, vomiting or abdominal pain NEUROLOGICAL: No headaches or weakness ENDOCRINE: No cold or heat intolerance GENITOURINARY: No urgency or frequency of urination MUSCULOSKELETAL: No back pain or joint pain LYMPHATICS: No enlarged lymph nodes PSYCHIATRIC: No anxiety or depression Comment Review of Relevant I have reviewed the following items edi (where applicable) has been applied. Labs Laboratory Tests Test 12/20/18 21:35 12/21/18 05:53 12/21/18 05:55 Vancomycin Level Trough 10.8 mcg/mL (10.0-20.0) Vancomycin Last Dose Date 12/19/18 Vancomycin Last Dose Time 2200 Sodium Level 138 mmol/L (136-145) Potassium Level 4.3 mmol/L (3.5-5.1) Chloride Level 103 mmol/L (98-107) Carbon Dioxide Level 24 mmol/L (21-32) Anion Gap 11 (6-14) Blood Urea Nitrogen 25 mg/dL (8-26) Creatinine 1.2 mg/dL (0.7-1.3) Estimated GFR (Cockcroft-Gault) 59.5 Glucose Level 82 mg/dL (70-99) Calcium Level 8.5 mg/dL (8.5-10.1) Procalcitonin 0.15 ng/mL (0.00-0.10) Microbiology 12/19/18 Blood Culture - Preliminary, Resulted NO GROWTH AFTER 3 DAYS Medications Current Medications Sodium Chloride 1,000 ml @ 60 mls/hr [id number] IV Last administered on at 17:11; Start 12/18/18 at 23:45; Stop 12/20/18 at 12:17; Status DC Piperacillin Sod/ Tazobactam Sod (Zosyn Per Pharmacy) 1 each PRN DAILY PRN MC SEE COMMENTS; Start 12/19/18 at 00:15 Levofloxacin/ Dextrose (Levaquin Per Pharmacy) 1 each PRN DAILY PRN MC SEE COMMENTS; Start 12/19/18 at 00:15; Stop 12/19/18 at 15:02; Status DC Vancomycin HCl (Vanco Per Pharmacy) 1 each PRN DAILY PRN MC SEE COMMENTS Last administered on 12/21/18at 02:51; Start 12/19/18 at 00:30; Stop 12/21/18 at 12:43 ; Status DC Levofloxacin/ Dextrose 150 ml @ 100 mls/hr Q24H IV ; Start 12/19/18 at 19:00; Stop 12/19/18 at 19:00; Status DC Piperacillin Sod/ Tazobactam Sod 4.5 gm/Sodium Chloride 100 ml @ 200 mls/hr Q8HRS IV Last administered on 12/19/18at 13:55; Start 12/19/18 at 06:00; Stop at 15:05; Status DC Vancomycin HCl 1 gm/Sodium Chloride 250 ml @ 250 mls/hr Q24H IV Last administered on 12/20/18at 22:02; Start 12/19/18 at 22:00; Stop 12/21/18 at 03:00 ; Status DC Vancomycin HCl (Vancomycin Trough Level) 1 each 1X ONCE MC Last administered on 12/20/18at 21:30; Start 12/20/18 at 21:30; Stop 12/20/18 at 21:31; Status DC Albuterol/ Ipratropium (Duoneb) 3 ml RTQID NEB Last administered on 12/22/18at 07:09; Start 12/19/18 at 08:00 Hydromorphone HCl (Dilaudid) 0.5 mg PRN Q4HRS PRN IVP PAIN; Start 12/19/18 at 06:30 Ondansetron HCl (Zofran) 4 mg PRN Q6HRS PRN IV NAUSEA/VOMITING; Start 12/19/18 at 06:30; Status Cancel Pantoprazole Sodium (PROTONIX VIAL for IV PUSH) 40 mg DAILYAC IVP Last administered on 12/19/18at 08:05; Start 12/19/18 at 07:30; Stop 12/19/18 at 14:26 ; Status DC Doxycycline Hyclate (Vibra-Tab) 100 mg BID PO Last administered on 12/22/18 08 :14; Start 12/19/18 at 09:30 Enoxaparin Sodium (Lovenox 40mg Syringe) 40 mg Q24H SQ Last administered on 11:42; Start 12/19/18 at 11:00 Aspirin (Ecotrin) 81 mg DAILY08 PO Last administered on 12/22/18 08:13; Start 12/19/18 at 14:30 Atorvastatin Calcium (Lipitor) 20 mg HS PO Last administered on 12/21/18 20:29 ; Start 12/19/18 at 21:00 Digoxin (Lanoxin) 250 mcg PRN Q6HRS PRN IV heart rate; Start 12/19/18 at 13:30 Lisinopril (Prinivil) 20 mg DAILY PO Last administered on 12/20/18 08:18; Start 12/19/18 at 14:30; Stop 12/21/18 at 08:06; Status DC Metoprolol Tartrate (Lopressor) 12.5 mg BID PO Last administered on 12/21/18 08:19; Start 12/19/18 at 21:00; Stop 12/21/18 at 09:06; Status DC Citalopram Hydrobromide (CeleXA) 40 mg DAILY PO ; Start 12/19/18 at 14:30; Stop 12/19/18 at 17:07; Status DC Lactobacillus Rhamnosus (Culturelle) 1 cap BID PO Last administered on 08:14; Start 12/19/18 at 21:00 Lansoprazole (Prevacid) 30 mg DAILY FT Last administered on 12/20/18 08:17; Start 12/19/18 at 15:00; Stop 12/20/18 at 15:25; Status DC Non-Formulary Medication (Linaclotide (Linzess)) 145 mcg DAILY07 PO Last administered on 12/21/18 08:17; Start 12/19/18 at 17:30 Olanzapine (ZyPREXA) 2.5 mg QHS PO Last administered on 12/21/18 20:29; Start 12/19/18 at 21:00 Olanzapine (ZyPREXA) 5 mg DAILY PO Last administered on 12/22/18 08:15; Start 12/20/18 at 09:00 Polyethylene Glycol (miraLAX PACKET) 17 gm BIDAC PO ; Start 12/19/18 at 16:30; Stop 12/19/18 at 16:53; Status DC Piperacillin Sod/ Tazobactam Sod 3.375 gm/Sodium Chloride 50 ml @ 100 mls/hr Q6HRS IV Last administered on 12/22/18 06:25; Start 12/19/18 at 19:00 Spironolactone (Aldactone) 25 mg DAILY PO Last administered on 12/22/18at 08:12 ; Start 12/19/18 at 15:30 Ondansetron HCl (Zofran) 4 mg PRN Q4HRS PRN IV NAUSEA/VOMITING; Start 12/19/18 at 15:15 Zolpidem Tartrate (Ambien) 5 mg PRN QHS PRN PO INSOMNIA; Start 12/19/18 at 15: 15 Acetaminophen (Tylenol) 650 mg PRN Q4HRS PRN PO TEMP OVER 100.4F OR MILD PAIN Last administered on 12/21/18at 14:31; Start 12/19/18 at 15:15 Clonidine HCl (Catapres) 0.1 mg PRN Q6HRS PRN PO SBP>160 OR DBP>90 Last administered on 12/20/18at 03:30; Start 12/19/18 at 15:15 Sodium Monofluorophosphate (Fleet Adult) 133 ml PRN DAILY PRN FL CONSTIPATION; Start 12/19/18 at 15:15 Docusate Sodium (Colace) 100 mg PRN BID PRN PO CONSTIPATION; Start 12/19/18 at 15:15 Lorazepam (Ativan) 0.5 mg PRN Q4HRS PRN PO ANXIETY / AGITATION; Start 12/19/18 at 15:15 Polyethylene Glycol (miraLAX PACKET) 17 gm BID PO Last administered on at 08:19; Start 12/19/18 at 21:00 Lansoprazole (Prevacid) 30 mg DAILY FT ; Start 12/20/18 at 09:00; Status UNV Non-Formulary Medication 1 ea DAILY PO Last administered on 12/22/18at 08:10; Start 12/20/18 at 09:00 Hydralazine HCl (Apresoline Inj) 10 mg PRN Q4HRS PRN IVP ELEVATED BP, SEE COMMENTS; Start 12/20/18 at 08:45 Barium Sulfate (Varibar Thin Liquid Apple) 148 gm 1X ONCE PO Last administered on 12/20/18at 10:45; Start 12/20/18 at 10:45; Stop 12/20/18 at 10:46 ; Status DC Lansoprazole (Prevacid) 30 mg BIDAC FT Last administered on 12/22/18at 07:30; Start 12/20/18 at 16:30 Vancomycin HCl 1 gm/Sodium Chloride 250 ml @ 250 mls/hr Q18H IV ; Start at 16:00; Stop 12/21/18 at 16:00; Status DC Vancomycin HCl (Vancomycin Trough Level) 1 each 1X ONCE MC ; Start 12/23/18 at 03:30; Stop 12/23/18 at 03:30; Status DC Lisinopril (Prinivil) 40 mg DAILY PO Last administered on 12/22/18at 08:11; Start 12/21/18 at 09:00 Metoprolol Tartrate (Lopressor) 25 mg BID PO Last administered on 12/22/18at 08: 13; Start 12/21/18 at 09:10 Active Scripts Active Reported Polyethylene Glycol 3350 2,500 Gm Powder 17 Gm PO BIDAC Zyprexa (Olanzapine) 5 Mg Tablet 5 Mg PO DAILY Zyprexa (Olanzapine) 2.5 Mg Tablet 1 Tab PO QHS Morphine 1 mg/2 ml Syringe (Morphine Sulfate/Pf) 1 Mg/2 Ml Syringe 2 Mg IV Q2H Metoprolol Tartrate 25 Mg Tablet 0.5 Tab PO BID Lisinopril 20 Mg Tablet 1 Tab PO DAILY Linzess (Linaclotide) 145 Mcg Capsule 145 Mcg PO DAILY07 Lansoprazole 30 Mg Capsule.dr 30 Mg PO DAILY PRN Acidophilus (Lactobacillus Acidophilus) 1 Each Capsule 1 Each PO BID PRN Heparin 5,000 Unit/1,000 ml-Ns (Heparin Sod,Porcine/0.9 % NaCl) 5,000 Unit/1000 Ml Iv.soln 5,000 Unit IV Q8HRS PRN Lanoxin (Digoxin) 250 Mcg/1 Ml Ampul 250 Mcg IJ PRN Q6HRS PRN Celexa (Citalopram Hydrobromide) 40 Mg Tablet 1 Tab PO DAILY Atorvastatin Calcium 20 Mg Tablet 20 Mg PO HS PRN Aspirin Ec (Aspirin) 81 Mg Tablet.dr 81 Mg PO QODAY Vitals/I & O Vital Sign - Last 24 Hours 12/21/18 12/21/18 12/21/18 12/21/18 11:00 11:17 12:01 15:00 Temp 97.6 97.7 97.6 97.7 Pulse 60 60 58 Resp 14 18 B/P (MAP) 144/78 (100) 144/78 124/64 (84) Pulse Ox 95 92 96 O2 Delivery Nasal Cannula Nasal Cannula Nasal Cannula O2 Flow Rate 3.0 2.0 3.0 12/21/18 12/21/18 12/21/18 12/21/18 15:30 19:00 19:15 20:25 Temp 97.5 97.5 Pulse 61 Resp 18 B/P (MAP) 118/62 (80) Pulse Ox 92 93 O2 Delivery Nasal Cannula Nasal Cannula Nasal Cannula Nasal Cannula O2 Flow Rate 2.0 3.0 2.0 2.0 12/21/18 12/21/18 12/22/18 12/22/18 20:30 22:52 03:00 07:00 Temp 97.8 97.5 97.8 97.8 97.5 97.8 Pulse 61 56 75 78 Resp 18 18 24 B/P (MAP) 118/62 136/78 (97) 140/95 (110) 169/99 (122) Pulse Ox 95 93 97 O2 Delivery Nasal Cannula Nasal Cannula Nasal Cannula O2 Flow Rate 3.0 3.0 3.0 12/22/18 12/22/18 12/22/18 07:11 08:11 08:13 Pulse 75 75 B/P (MAP) 140/95 140/95 Pulse Ox 89 O2 Delivery Room Air Intake and Output 12/21/18 12/21/18 12/22/18 15:00 23:00 07:00 Intake Total 2280 ml 1500 ml 50 ml Output Total 450 ml 325 ml Balance 1830 ml 1175 ml 50 ml Nutrition Consultation Dietary Evaluation: Comments: REC Tube feed per following: Jevity 1.5 bolus, 1 carton in the morning, 2 cartons in the afternoon, 2 cartons in the evening w/16 oz (473 ml) w/each feeding Expected Outcomes/Goals: TF intake to meet >75% est needs Malnutrition Findings: Body Fat Depletion (Non Severe: Mild Depletion Weight Status: Appropriate TERMULO,KEREN Y MD Dec 22, 2018 09:36
[2018-12-22 11:00] VITALS: BP 148/73
--- NOTE | 2018-12-22 12:11 | PDOC ---
PULMONARY PROGRESS NOTES Subjective PT LESS SOA HAD VIDEO Vitals Vital Signs Date Time Temp Pulse Resp B/P (MAP) Pulse Ox O2 Delivery O2 Flow Rate FiO2 12/22/18 11:19 Nasal Cannula 2.0 12/22/18 11:00 98.3 52 22 148/73 (98) 95 98.3 ROS: No Nausea, No Chest Pain, No Abdominal Pain, No Increase Cough General: Alert Lungs: Clear Cardiovascular: S1, S2 Abdomen: Soft Neuro Exam: Alert Extremities: No Edema Skin: Warm Labs Laboratory Tests Test 12/20/18 21:35 12/21/18 05:53 12/21/18 05:55 Vancomycin Level Trough 10.8 mcg/mL (10.0-20.0) Vancomycin Last Dose Date 12/19/18 Vancomycin Last Dose Time 2200 Sodium Level 138 mmol/L (136-145) Potassium Level 4.3 mmol/L (3.5-5.1) Chloride Level 103 mmol/L (98-107) Carbon Dioxide Level 24 mmol/L (21-32) Anion Gap 11 (6-14) Blood Urea Nitrogen 25 mg/dL (8-26) Creatinine 1.2 mg/dL (0.7-1.3) Estimated GFR (Cockcroft-Gault) 59.5 Glucose Level 82 mg/dL (70-99) Calcium Level 8.5 mg/dL (8.5-10.1) Procalcitonin 0.15 ng/mL (0.00-0.10) Medications Active Scripts Medications Dose Route/Sig Max Daily Dose Days Date Category Polyethylene Glycol 3350 2,500 Gm Powder 17 Gm PO BIDAC 12/19/18 Reported Zyprexa (Olanzapine) 5 Mg Tablet 5 Mg PO DAILY 12/19/18 Reported Zyprexa (Olanzapine) 2.5 Mg Tablet 1 Tab PO QHS 12/19/18 Reported Morphine 1 mg/2 ml Syringe (Morphine Sulfate/Pf) 1 Mg/2 Ml Syringe 2 Mg IV Q2H 12/19/18 Reported Metoprolol Tartrate 25 Mg Tablet 0.5 Tab PO BID 12/19/18 Reported Lisinopril 20 Mg Tablet 1 Tab PO DAILY 12/19/18 Reported Linzess (Linaclotide) 145 Mcg Capsule 145 Mcg PO DAILY07 12/19/18 Reported Lansoprazole 30 Mg Capsule.dr 30 Mg PO DAILY PRN 12/19/18 Reported Acidophilus (Lactobacillus Acidophilus) 1 Each Capsule 1 Each PO BID PRN 12/19/18 Reported Heparin 5,000 Unit/1,000 ml-Ns (Heparin Sod,Porcine/0.9 % NaCl) 5,000 Unit/1000 Ml Iv.soln 5,000 Unit IV Q8HRS PRN 12/19/18 Reported Lanoxin (Digoxin) 250 Mcg/1 Ml Ampul 250 Mcg IJ PRN Q6HRS PRN 12/19/18 Reported Celexa (Citalopram Hydrobromide) 40 Mg Tablet 1 Tab PO DAILY 12/19/18 Reported Atorvastatin Calcium 20 Mg Tablet 20 Mg PO HS PRN 12/19/18 Reported Aspirin Ec (Aspirin) 81 Mg Tablet.dr 81 Mg PO QODAY 12/19/18 Reported Impression . IMPRESSION: 1. Recurrent aspiration pneumonia. 2. Acute respiratory failure secondary to recurrent aspiration pneumonia. 3. Abnormal CT chest related to recurrent aspiration pneumonia. 4. History of tongue cancer, status post chemoradiation with dysphagia, status post gastric tube placement. 5. Chronic malnutrition present upon admission, status post gastrostomy tube placement. 6. Tobacco dependence, quit in 2004. 7. Multiple other comorbidities as indicated above. Plan . IMPROVING WILL CONTINUE ANTIBX PER ID NPO FAILED VIDEO AVOID CAFFIENE D/W PT KIYA JOHNSON MD Dec 22, 2018 12:11
[2018-12-22] MEDS: ENOXAPARIN 40 MG/0.4 ML SYRINGE. SQ SCH (12:23)
--- NOTE | 2018-12-22 12:47 | PDOC ---
Infectious Disease Note Subjective Subjective Feeling better Wants the heart monitor removed Finished taking a walk with therapy Mild cough Denies F/C/S/N/V/D/SOA ROS ROS per HPI otherwise neg Vital Sign Vital Signs Vital Signs Date Time Temp Pulse Resp B/P (MAP) Pulse Ox O2 Delivery O2 Flow Rate FiO2 12/22/18 11:19 Nasal Cannula 2.0 12/22/18 11:00 98.3 52 22 148/73 (98) 95 98.3 Physical Exam PHYSICAL EXAM GENERAL: Sitting in the chair, relaxed appearance HEENT: Pupils equally round, Oral cavity very dry NECK: Supple. LUNGS: Decreased breath sounds at bases. HEART: S1, S2. No rubs, gallops, or murmurs. ABDOMEN: Soft, mildly distended. PEG tube site looks okay. No evidence of infection. There is a small abdominal wall hematoma on the right upper quadrant, mildly tender. No fluctuance. No masses felt. No rebound, no guarding. EXTREMITIES: No edema, no cyanosis. NEUROLOGIC: Alert and oriented x 3. Grossly nonfocal. PIV Labs Micro Microbiology 12/19/18 Blood Culture - Preliminary, Resulted NO GROWTH AFTER 3 DAYS Objective Assessment Fever at [facility] prior to admission at [facility], better Leukopenia Abdominal pain. Right lung infiltrate.- feels he is slowly getting better Renal insufficiency, better History of cancer of the tongue. History of urinary retention, status post self-catheterization. History of bipolar disorder, panic disorder, obsessive compulsive disorder, depression. History of gastroparesis, anorexia, Pastrana's esophagus, status post PEG tube placement. Plan Plan of Care Empiric Zosyn and doxycycline since 12/19 f/u cultures from [facility] in am Oral care D/w nursing Attending Co-Sign Attending Co-Sign The patient was seen and interviewed as well as examined at the bedside. The chart was reviewed. The case was discussed. Agree with the plan of care. EFE VICTOR APRN Dec 22, 2018 12:47 TALAT PAGAN MD Dec 22, 2018 13:48
[2018-12-22 15:00] VITALS: BP 124/72
[2018-12-22 19:00] VITALS: BP 146/74
[2018-12-22] MEDS: ATORVASTATIN CALCIUM 20 MG TABLET PO SCH (20:20)
[2018-12-22] MEDS: OLANZapine 2.5 MG TABLET PO SCH (20:20)
[2018-12-22 22:50] VITALS: BP 154/80
[2018-12-23 03:00] VITALS: BP 153/76
[2018-12-23] MEDS: PIPERACILLIN/TAZOBACTAM 3.375 GM in IV NORMAL SALINE 50ML 50 ML IV SCH ×4 (05:24→23:20)
[2018-12-23 07:00] VITALS: BP 161/87
[2018-12-23] MEDS: Linaclotide (Linzess) 145 MCG PO SCH (07:00)
[2018-12-23] MEDS: IPRATRPIUM/ALBUTEROL 0.5/2.5MG 3 ML NEBU. NEB SCH ×4 (07:13→20:29)
[2018-12-23] MEDS: ENOXAPARIN 40 MG/0.4 ML SYRINGE. SQ SCH (08:04)
[2018-12-23] MEDS: ESCITALOPRAM 20 MG PO SCH (08:04)
[2018-12-23] MEDS: LISINOPRIL 20 MG TABLET PO SCH (08:05)
[2018-12-23] MEDS: POLYETHYLENE GLYCOL 3350 17 GM PACKET. PO SCH ×2 (08:05→21:33)
[2018-12-23] MEDS: ASPIRIN ENTERIC COATED 81 MG TABLET.DR. PO SCH (08:06)
[2018-12-23] MEDS: METOPROLOL TART IMMED RELEASE 25 MG TABLET. PO SCH ×2 (08:06→21:34)
[2018-12-23] MEDS: OLANZapine 5 MG TABLET PO SCH (08:06)
[2018-12-23] MEDS: LANSOPRAZOLE 30 MG TAB.RAP.DR FT SCH ×2 (08:06→17:26)
[2018-12-23] MEDS: DOXYCYCLINE HYCLATE 100 MG TABLET PO SCH ×2 (08:06→21:33)
[2018-12-23] MEDS: LACTOBACILLUS RHAMNOSUS GG 1 CAPSULE. PO SCH ×2 (08:06→21:33)
[2018-12-23] MEDS: SPIRONOLACTONE 25 MG TABLET PO SCH (08:07)
--- NOTE | 2018-12-23 10:20 | PDOC ---
PROGRESS NOTES Chief Complaint Chief Complaint 1. Recurrent aspiration pneumonia. 2. Acute respiratory failure secondary to recurrent aspiration pneumonia. 3. Abnormal CT chest related to recurrent aspiration pneumonia. 4. History of tongue cancer, status post chemoradiation with dysphagia, status post gastric tube placement. 5. Chronic malnutrition present upon admission, status post gastrostomy tube placement. 6. Tobacco dependence, quit in 2004. 7. Multiple other comorbidities as indicated above. 8. Recurrent pneumonia, dysphagia, NELSON-PRESLEY in place 9. 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 NSTEMI, CAD hx\ 12. NON sustained V. 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 Some aberrant conduction on monday-I have discussed with cardiology continue beta jeremy for now and planned for outpatient workup No fevers on empiric Zosyn and by mouth Doxy by ID Plan: discharge tomorrow with home health if okayed by ID POURER BUGGY LADLE will re eval monday as he could eat some food [facility] [employer] Wound care again monday Lives with Will dc with [facility] on pls May dc tele monitor Vitals Vitals Vital Signs Date Time Temp Pulse Resp B/P (MAP) Pulse Ox O2 Delivery O2 Flow Rate FiO2 12/23/18 08:06 61 161/87 12/23/18 07:15 97 Nasal Cannula 2.0 12/23/18 07:00 97.4 20 97.4 Physical Exam Physical Exam GENERAL: Sitting in the chair, relaxed appearance HEENT: Pupils equally round, Oral cavity very dry NECK: Supple. LUNGS: Decreased breath sounds at bases. HEART: S1, S2. No rubs, gallops, or murmurs. ABDOMEN: Soft, mildly distended. PEG tube site looks okay. No evidence of infection. There is a small abdominal wall hematoma on the right upper quadrant, mildly tender. No fluctuance. No masses felt. No rebound, no guarding. EXTREMITIES: No edema, no cyanosis. NEUROLOGIC: Alert and oriented x 3. Grossly nonfocal. PIV General: Alert, Cooperative, No acute distress Heart: Regular rate, Other (distant heart sounds) Lungs: Clear Abdomen: Soft, Other (diffuse abd tenderness with palpation, PEG tube in place) Extremities: No cyanosis, No edema Skin: No breakdown, No significant lesion Review of Systems Review of Systems A 14 point ROS was completed with the following noted as positive: Other systems reviewed and negative. \CONSTITUTIONAL: No fever or chills EYES: No recent changes SKIN: No rash or itching CARDIOVASCULAR: No chest pain, syncope, palpitations, or edema RESPIRATORY: No SOB or cough GASTROINTESTINAL: No nausea, vomiting or abdominal pain NEUROLOGICAL: No headaches or weakness ENDOCRINE: No cold or heat intolerance GENITOURINARY: No urgency or frequency of urination MUSCULOSKELETAL: No back pain or joint pain LYMPHATICS: No enlarged lymph nodes PSYCHIATRIC: No anxiety or depression Comment Review of Relevant I have reviewed the following items edi (where applicable) has been applied. Labs Microbiology 12/19/18 Blood Culture - Preliminary, Resulted NO GROWTH AFTER 4 DAYS Medications Current Medications Sodium Chloride 1,000 ml @ 60 mls/hr [id number] IV Last administered on at 17:11; Start 12/18/18 at 23:45; Stop 12/20/18 at 12:17; Status DC Piperacillin Sod/ Tazobactam Sod (Zosyn Per Pharmacy) 1 each PRN DAILY PRN MC SEE COMMENTS; Start 12/19/18 at 00:15 Levofloxacin/ Dextrose (Levaquin Per Pharmacy) 1 each PRN DAILY PRN MC SEE COMMENTS; Start 12/19/18 at 00:15; Stop 12/19/18 at 15:02; Status DC Vancomycin HCl (Vanco Per Pharmacy) 1 each PRN DAILY PRN MC SEE COMMENTS Last administered on 12/21/18at 02:51; Start 12/19/18 at 00:30; Stop 12/21/18 at 12:43 ; Status DC Levofloxacin/ Dextrose 150 ml @ 100 mls/hr Q24H IV ; Start 12/19/18 at 19:00; Stop 12/19/18 at 19:00; Status DC Piperacillin Sod/ Tazobactam Sod 4.5 gm/Sodium Chloride 100 ml @ 200 mls/hr Q8HRS IV Last administered on 12/19/18at 13:55; Start 12/19/18 at 06:00; Stop at 15:05; Status DC Vancomycin HCl 1 gm/Sodium Chloride 250 ml @ 250 mls/hr Q24H IV Last administered on 12/20/18at 22:02; Start 12/19/18 at 22:00; Stop 12/21/18 at 03:00 ; Status DC Vancomycin HCl (Vancomycin Trough Level) 1 each 1X ONCE MC Last administered on 12/20/18at 21:30; Start 12/20/18 at 21:30; Stop 12/20/18 at 21:31; Status DC Albuterol/ Ipratropium (Duoneb) 3 ml RTQID NEB Last administered on 12/23/18 07:13; Start 12/19/18 at 08:00 Hydromorphone HCl (Dilaudid) 0.5 mg PRN Q4HRS PRN IVP PAIN; Start 12/19/18 at 06:30 Ondansetron HCl (Zofran) 4 mg PRN Q6HRS PRN IV NAUSEA/VOMITING; Start 12/19/18 at 06:30; Status Cancel Pantoprazole Sodium (PROTONIX VIAL for IV PUSH) 40 mg DAILYAC IVP Last administered on 12/19/18 08:05; Start 12/19/18 at 07:30; Stop 12/19/18 at 14:26 ; Status DC Doxycycline Hyclate (Vibra-Tab) 100 mg BID PO Last administered on 12/23/18 08 :06; Start 12/19/18 at 09:30 Enoxaparin Sodium (Lovenox 40mg Syringe) 40 mg Q24H SQ Last administered on 08:04; Start 12/19/18 at 11:00 Aspirin (Ecotrin) 81 mg DAILY08 PO Last administered on 12/23/18 08:06; Start 12/19/18 at 14:30 Atorvastatin Calcium (Lipitor) 20 mg HS PO Last administered on 12/22/18 20:20 ; Start 12/19/18 at 21:00 Digoxin (Lanoxin) 250 mcg PRN Q6HRS PRN IV heart rate; Start 12/19/18 at 13:30 Lisinopril (Prinivil) 20 mg DAILY PO Last administered on 12/20/18 08:18; Start 12/19/18 at 14:30; Stop 12/21/18 at 08:06; Status DC Metoprolol Tartrate (Lopressor) 12.5 mg BID PO Last administered on 12/21/18 08:19; Start 12/19/18 at 21:00; Stop 12/21/18 at 09:06; Status DC Citalopram Hydrobromide (CeleXA) 40 mg DAILY PO ; Start 12/19/18 at 14:30; Stop 12/19/18 at 17:07; Status DC Lactobacillus Rhamnosus (Culturelle) 1 cap BID PO Last administered on 08:06; Start 12/19/18 at 21:00 Lansoprazole (Prevacid) 30 mg DAILY FT Last administered on 12/20/18 08:17; Start 12/19/18 at 15:00; Stop 12/20/18 at 15:25; Status DC Non-Formulary Medication (Linaclotide (Linzess)) 145 mcg DAILY07 PO Last administered on 12/21/18 08:17; Start 12/19/18 at 17:30 Olanzapine (ZyPREXA) 2.5 mg QHS PO Last administered on 12/22/18 20:20; Start 12/19/18 at 21:00 Olanzapine (ZyPREXA) 5 mg DAILY PO Last administered on 12/23/18 08:06; Start 12/20/18 at 09:00 Polyethylene Glycol (miraLAX PACKET) 17 gm BIDAC PO ; Start 12/19/18 at 16:30; Stop 12/19/18 at 16:53; Status DC Piperacillin Sod/ Tazobactam Sod 3.375 gm/Sodium Chloride 50 ml @ 100 mls/hr Q6HRS IV Last administered on 12/23/18at 05:24; Start 12/19/18 at 19:00 Spironolactone (Aldactone) 25 mg DAILY PO Last administered on 12/23/18at 08:07 ; Start 12/19/18 at 15:30 Ondansetron HCl (Zofran) 4 mg PRN Q4HRS PRN IV NAUSEA/VOMITING; Start 12/19/18 at 15:15 Zolpidem Tartrate (Ambien) 5 mg PRN QHS PRN PO INSOMNIA; Start 12/19/18 at 15: 15 Acetaminophen (Tylenol) 650 mg PRN Q4HRS PRN PO TEMP OVER 100.4F OR MILD PAIN Last administered on 12/21/18at 14:31; Start 12/19/18 at 15:15 Clonidine HCl (Catapres) 0.1 mg PRN Q6HRS PRN PO SBP>160 OR DBP>90 Last administered on 12/20/18at 03:30; Start 12/19/18 at 15:15 Sodium Monofluorophosphate (Fleet Adult) 133 ml PRN DAILY PRN OK CONSTIPATION; Start 12/19/18 at 15:15 Docusate Sodium (Colace) 100 mg PRN BID PRN PO CONSTIPATION; Start 12/19/18 at 15:15 Lorazepam (Ativan) 0.5 mg PRN Q4HRS PRN PO ANXIETY / AGITATION; Start 12/19/18 at 15:15 Polyethylene Glycol (miraLAX PACKET) 17 gm BID PO Last administered on at 08:19; Start 12/19/18 at 21:00 Lansoprazole (Prevacid) 30 mg DAILY FT ; Start 12/20/18 at 09:00; Status UNV Non-Formulary Medication 1 ea DAILY PO Last administered on 12/23/18at 08:04; Start 12/20/18 at 09:00 Hydralazine HCl (Apresoline Inj) 10 mg PRN Q4HRS PRN IVP ELEVATED BP, SEE COMMENTS; Start 12/20/18 at 08:45 Barium Sulfate (Varibar Thin Liquid Apple) 148 gm 1X ONCE PO Last administered on 12/20/18at 10:45; Start 12/20/18 at 10:45; Stop 12/20/18 at 10:46 ; Status DC Lansoprazole (Prevacid) 30 mg BIDAC FT Last administered on 12/23/18at 08:06; Start 12/20/18 at 16:30 Vancomycin HCl 1 gm/Sodium Chloride 250 ml @ 250 mls/hr Q18H IV ; Start at 16:00; Stop 12/21/18 at 16:00; Status DC Vancomycin HCl (Vancomycin Trough Level) 1 each 1X ONCE MC ; Start 12/23/18 at 03:30; Stop 12/23/18 at 03:30; Status DC Lisinopril (Prinivil) 40 mg DAILY PO Last administered on 12/23/18at 08:05; Start 12/21/18 at 09:00 Metoprolol Tartrate (Lopressor) 25 mg BID PO Last administered on 12/23/18at 08: 06; Start 12/21/18 at 09:10 Active Scripts Active Reported Polyethylene Glycol 3350 2,500 Gm Powder 17 Gm PO BIDAC Zyprexa (Olanzapine) 5 Mg Tablet 5 Mg PO DAILY Zyprexa (Olanzapine) 2.5 Mg Tablet 1 Tab PO QHS Morphine 1 mg/2 ml Syringe (Morphine Sulfate/Pf) 1 Mg/2 Ml Syringe 2 Mg IV Q2H Metoprolol Tartrate 25 Mg Tablet 0.5 Tab PO BID Lisinopril 20 Mg Tablet 1 Tab PO DAILY Linzess (Linaclotide) 145 Mcg Capsule 145 Mcg PO DAILY07 Lansoprazole 30 Mg Capsule.dr 30 Mg PO DAILY PRN Acidophilus (Lactobacillus Acidophilus) 1 Each Capsule 1 Each PO BID PRN Heparin 5,000 Unit/1,000 ml-Ns (Heparin Sod,Porcine/0.9 % NaCl) 5,000 Unit/1000 Ml Iv.soln 5,000 Unit IV Q8HRS PRN Lanoxin (Digoxin) 250 Mcg/1 Ml Ampul 250 Mcg IJ PRN Q6HRS PRN Celexa (Citalopram Hydrobromide) 40 Mg Tablet 1 Tab PO DAILY Atorvastatin Calcium 20 Mg Tablet 20 Mg PO HS PRN Aspirin Ec (Aspirin) 81 Mg Tablet.dr 81 Mg PO QODAY Vitals/I & O Vital Sign - Last 24 Hours 12/22/18 12/22/18 12/22/18 12/22/18 11:00 11:19 15:00 15:49 Temp 98.3 97.5 98.3 97.5 Pulse 52 58 Resp 22 16 B/P (MAP) 148/73 (98) 124/72 (89) Pulse Ox 95 92 O2 Delivery Nasal Cannula Nasal Cannula Nasal Cannula Nasal Cannula O2 Flow Rate 3.0 2.0 3.0 2.0 12/22/18 12/22/18 12/22/18 12/22/18 18:19 19:00 20:00 20:21 Temp 98.5 98.5 Pulse 70 70 Resp 18 B/P (MAP) 146/74 (98) 146/74 Pulse Ox 95 O2 Delivery Nasal Cannula Nasal Cannula Nasal Cannula O2 Flow Rate 2.0 3.0 2.0 12/22/18 12/23/18 12/23/18 12/23/18 22:50 03:00 07:00 07:15 Temp 97.8 97.4 97.4 97.8 97.4 97.4 Pulse 52 55 61 Resp 18 18 20 B/P (MAP) 154/80 (104) 153/76 (101) 161/87 (111) Pulse Ox 94 92 2 97 O2 Delivery Nasal Cannula Nasal Cannula Nasal Cannula Nasal Cannula O2 Flow Rate 3.0 2.0 2.0 12/23/18 12/23/18 08:05 08:06 Pulse 61 61 B/P (MAP) 161/87 161/87 Intake and Output 12/22/18 12/22/18 12/23/18 14:59 22:59 06:59 Intake Total 750 ml 500 ml Output Total 250 ml Balance 500 ml 500 ml Nutrition Consultation Dietary Evaluation: Comments: REC Tube feed per following: Jevity 1.5 bolus, 1 carton in the morning, 2 cartons in the afternoon, 2 cartons in the evening w/16 oz (473 ml) w/each feeding Expected Outcomes/Goals: TF intake to meet >75% est needs Malnutrition Findings: Body Fat Depletion (Non Severe: Mild Depletion Weight Status: Appropriate KEREN UMANA MD Dec 23, 2018 10:20
[2018-12-23] MEDS ORDERED: SPIR25TA PO (10:23)
[2018-12-23] MEDS ORDERED: LISI-130 PO (10:23)
[2018-12-23] MEDS ORDERED: DOXY100T PO (10:23)
[2018-12-23 11:00] VITALS: BP 147/57
--- NOTE | 2018-12-23 11:38 | PDOC ---
Infectious Disease Note Subjective Subjective c/o some discomfort under left rib area during tube feedings Mild cough Denies F/C/S/N/V/D/SOA ROS ROS per HPI otherwise neg Vital Sign Vital Signs Vital Signs Date Time Temp Pulse Resp B/P (MAP) Pulse Ox O2 Delivery O2 Flow Rate FiO2 12/23/18 11:16 Nasal Cannula 2.0 12/23/18 08:06 61 161/87 12/23/18 07:15 97 12/23/18 07:00 97.4 20 97.4 Physical Exam PHYSICAL EXAM GENERAL: Propped up in bed, alert, watching TV HEENT: Pupils equally round, Oral cavity very dry NECK: Supple. LUNGS: Decreased breath sounds at bases. HEART: S1, S2. No rubs, gallops, or murmurs. ABDOMEN: Soft, mildly distended. PEG tube/maurizio button site - clean EXTREMITIES: No edema, no cyanosis. NEUROLOGIC: Alert and oriented x 3. Grossly nonfocal. PIV Labs Micro Microbiology 12/19/18 Blood Culture - Preliminary, Resulted NO GROWTH AFTER 4 DAYS Objective Assessment Fever at [facility] prior to admission at [facility], better Leukopenia Abdominal pain. Right lung infiltrate. Renal insufficiency, better History of cancer of the tongue. History of urinary retention, status post self-catheterization. History of bipolar disorder, panic disorder, obsessive compulsive disorder, depression. History of gastroparesis, anorexia, Pastrana's esophagus, status post PEG tube placement. Plan Plan of Care Empiric Zosyn and doxycycline since 12/19 BC from [facility] NGD f/u am labs Oral care To po 12/24 Attending Co-Sign Attending Co-Sign The patient was seen and interviewed as well as examined at the bedside. The chart was reviewed. The case was discussed. Agree with the plan of care. EFE VICTOR APRN Dec 23, 2018 11:37 TALAT PAGAN MD Dec 23, 2018 15:54
--- NOTE | 2018-12-23 13:54 | PDOC ---
PULMONARY PROGRESS NOTES Subjective PT LESS SOA HAD VIDEO Vitals Vital Signs Date Time Temp Pulse Resp B/P (MAP) Pulse Ox O2 Delivery O2 Flow Rate FiO2 12/23/18 11:16 Nasal Cannula 2.0 12/23/18 11:00 97.6 62 20 147/57 (87) 92 97.6 ROS: No Nausea, No Chest Pain, No Abdominal Pain, No Increase Cough General: Alert Lungs: Clear Cardiovascular: S1, S2 Abdomen: Soft Neuro Exam: Alert Extremities: No Edema Skin: Warm Medications Active Scripts Medications Dose Route/Sig Max Daily Dose Days Date Category Polyethylene Glycol 3350 2,500 Gm Powder 17 Gm PO BIDAC 12/19/18 Reported Zyprexa (Olanzapine) 5 Mg Tablet 5 Mg PO DAILY 12/19/18 Reported Zyprexa (Olanzapine) 2.5 Mg Tablet 1 Tab PO QHS 12/19/18 Reported Morphine 1 mg/2 ml Syringe (Morphine Sulfate/Pf) 1 Mg/2 Ml Syringe 2 Mg IV Q2H 12/19/18 Reported Metoprolol Tartrate 25 Mg Tablet 0.5 Tab PO BID 12/19/18 Reported Lisinopril 20 Mg Tablet 1 Tab PO DAILY 12/19/18 Reported Linzess (Linaclotide) 145 Mcg Capsule 145 Mcg PO DAILY07 12/19/18 Reported Lansoprazole 30 Mg Capsule.dr 30 Mg PO DAILY PRN 12/19/18 Reported Acidophilus (Lactobacillus Acidophilus) 1 Each Capsule 1 Each PO BID PRN 12/19/18 Reported Heparin 5,000 Unit/1,000 ml-Ns (Heparin Sod,Porcine/0.9 % NaCl) 5,000 Unit/1000 Ml Iv.soln 5,000 Unit IV Q8HRS PRN 12/19/18 Reported Lanoxin (Digoxin) 250 Mcg/1 Ml Ampul 250 Mcg IJ PRN Q6HRS PRN 12/19/18 Reported Celexa (Citalopram Hydrobromide) 40 Mg Tablet 1 Tab PO DAILY 12/19/18 Reported Atorvastatin Calcium 20 Mg Tablet 20 Mg PO HS PRN 12/19/18 Reported Aspirin Ec (Aspirin) 81 Mg Tablet.dr 81 Mg PO QODAY 12/19/18 Reported Impression . IMPRESSION: 1. Recurrent aspiration pneumonia. 2. Acute respiratory failure secondary to recurrent aspiration pneumonia. 3. Abnormal CT chest related to recurrent aspiration pneumonia. 4. History of tongue cancer, status post chemoradiation with dysphagia, status post gastric tube placement. 5. Chronic malnutrition present upon admission, status post gastrostomy tube placement. 6. Tobacco dependence, quit in 2004. 7. Multiple other comorbidities as indicated above. Plan . RESP STATUS IS IMPROVING AWAITING BC RESULTS IMPROVING WILL CONTINUE ANTIBX PER ID NPO FAILED VIDEO AVOID CAFFEINE D/W PT KIYA JOHNSON MD Dec 23, 2018 13:54
[2018-12-23 15:13] VITALS: BP 101/63
[2018-12-23 19:00] VITALS: BP 125/65
[2018-12-23] MEDS: ATORVASTATIN CALCIUM 20 MG TABLET PO SCH (21:33)
[2018-12-23] MEDS: OLANZapine 2.5 MG TABLET PO SCH (21:33)
[2018-12-23 23:00] VITALS: BP 146/77
[2018-12-24 03:00] VITALS: BP 167/84
[2018-12-24] MEDS: PIPERACILLIN/TAZOBACTAM 3.375 GM in IV NORMAL SALINE 50ML 50 ML IV SCH (05:51)
[2018-12-24] MEDS: Linaclotide (Linzess) 145 MCG PO SCH (06:01)
[2018-12-24 06:25] LABS: BASO % 1 % (0-3); EOS # 0.2 x10^3/uL (0.0-0.7); EOS % 2 % (0-3); HEMATOCRIT 39.2 % (39.0-53.0); HEMOGLOBIN 13.4 g/dL (13.0-17.5); LYMPH # 1.1 x10^3/uL (1.0-4.8); LYMPH % 16 % (24-48); MEAN CORPUSCULAR HEMOGLOBIN 31 pg (25-35); MEAN CORPUSCULAR HGB CONC 34 g/dL (31-37); MEAN CORPUSCULAR VOLUME 90 fL (79-100); MONO # 0.5 x10^3/uL (0.0-1.1); MONO % 8 % (0-9); NEUT # 4.8 x10^3uL (1.8-7.7); NEUT % 73 % (31-73); PLATELET COUNT 181 x10^3/uL (140-400); RED BLOOD COUNT 4.34 x10^6/uL (4.30-5.70); RED CELL DISTRIBUTION WIDTH 14.4 % (11.5-14.5); WHITE BLOOD COUNT 6.6 x10^3/uL (4.0-11.0)
[2018-12-24 06:39] LABS: CALCIUM 9.1 mg/dL (8.5-10.1); CREATININE 1.3 mg/dL (0.7-1.3); GFR 54.3; POTASSIUM 4.2 mmol/L (3.5-5.1)
[2018-12-24 07:00] VITALS: BP 168/88
[2018-12-24] MEDS: IPRATRPIUM/ALBUTEROL 0.5/2.5MG 3 ML NEBU. NEB SCH ×2 (07:52→11:31)
[2018-12-24] MEDS: LACTOBACILLUS RHAMNOSUS GG 1 CAPSULE. PO SCH (08:03)
[2018-12-24] MEDS: ASPIRIN ENTERIC COATED 81 MG TABLET.DR. PO SCH (08:03)
[2018-12-24] MEDS: DOXYCYCLINE HYCLATE 100 MG TABLET PO SCH (08:03)
[2018-12-24] MEDS: LISINOPRIL 20 MG TABLET PO SCH (08:04)
[2018-12-24] MEDS: SPIRONOLACTONE 25 MG TABLET PO SCH (08:04)
[2018-12-24] MEDS: LANSOPRAZOLE 30 MG TAB.RAP.DR FT SCH (08:04)
[2018-12-24] MEDS: POLYETHYLENE GLYCOL 3350 17 GM PACKET. PO SCH (08:04)
[2018-12-24] MEDS: OLANZapine 5 MG TABLET PO SCH (08:04)
[2018-12-24] MEDS: METOPROLOL TART IMMED RELEASE 25 MG TABLET. PO SCH (08:04)
[2018-12-24] MEDS: ESCITALOPRAM 20 MG PO SCH (08:05)
--- NOTE | 2018-12-24 09:03 | PDOC ---
PULMONARY PROGRESS NOTES Subjective PT LESS SOA HAD VIDEO Vitals Vital Signs Date Time Temp Pulse Resp B/P (MAP) Pulse Ox O2 Delivery O2 Flow Rate FiO2 12/24/18 08:25 Nasal Cannula 2.0 12/24/18 08:04 71 168/88 12/24/18 07:52 95 12/24/18 07:00 97.5 16 97.5 ROS: No Nausea, No Chest Pain, No Abdominal Pain, No Increase Cough General: Alert Lungs: Clear Cardiovascular: S1, S2 Abdomen: Soft Neuro Exam: Alert Extremities: No Edema Skin: Warm Labs Laboratory Tests Test 12/24/18 05:42 White Blood Count 6.6 x10^3/uL (4.0-11.0) Red Blood Count 4.34 x10^6/uL (4.30-5.70) Hemoglobin 13.4 g/dL (13.0-17.5) Hematocrit 39.2 % (39.0-53.0) Mean Corpuscular Volume 90 fL (79-100) Mean Corpuscular Hemoglobin 31 pg (25-35) Mean Corpuscular Hemoglobin Concent 34 g/dL (31-37) Red Cell Distribution Width 14.4 % (11.5-14.5) Platelet Count 181 x10^3/uL (140-400) Neutrophils (%) (Auto) 73 % (31-73) Lymphocytes (%) (Auto) 16 % (24-48) Monocytes (%) (Auto) 8 % (0-9) Eosinophils (%) (Auto) 2 % (0-3) Basophils (%) (Auto) 1 % (0-3) Neutrophils # (Auto) 4.8 x10^3uL (1.8-7.7) Lymphocytes # (Auto) 1.1 x10^3/uL (1.0-4.8) Monocytes # (Auto) 0.5 x10^3/uL (0.0-1.1) Eosinophils # (Auto) 0.2 x10^3/uL (0.0-0.7) Basophils # (Auto) 0.0 x10^3/uL (0.0-0.2) Erythrocyte Sedimentation Rate 28 (0-15) Sodium Level 138 mmol/L (136-145) Potassium Level 4.2 mmol/L (3.5-5.1) Chloride Level 102 mmol/L (98-107) Carbon Dioxide Level 29 mmol/L (21-32) Anion Gap 7 (6-14) Blood Urea Nitrogen 29 mg/dL (8-26) Creatinine 1.3 mg/dL (0.7-1.3) Estimated GFR (Cockcroft-Gault) 54.3 Glucose Level 82 mg/dL (70-99) Calcium Level 9.1 mg/dL (8.5-10.1) Laboratory Tests Test 12/24/18 05:42 White Blood Count 6.6 x10^3/uL (4.0-11.0) Red Blood Count 4.34 x10^6/uL (4.30-5.70) Hemoglobin 13.4 g/dL (13.0-17.5) Hematocrit 39.2 % (39.0-53.0) Mean Corpuscular Volume 90 fL (79-100) Mean Corpuscular Hemoglobin 31 pg (25-35) Mean Corpuscular Hemoglobin Concent 34 g/dL (31-37) Red Cell Distribution Width 14.4 % (11.5-14.5) Platelet Count 181 x10^3/uL (140-400) Neutrophils (%) (Auto) 73 % (31-73) Lymphocytes (%) (Auto) 16 % (24-48) Monocytes (%) (Auto) 8 % (0-9) Eosinophils (%) (Auto) 2 % (0-3) Basophils (%) (Auto) 1 % (0-3) Neutrophils # (Auto) 4.8 x10^3uL (1.8-7.7) Lymphocytes # (Auto) 1.1 x10^3/uL (1.0-4.8) Monocytes # (Auto) 0.5 x10^3/uL (0.0-1.1) Eosinophils # (Auto) 0.2 x10^3/uL (0.0-0.7) Basophils # (Auto) 0.0 x10^3/uL (0.0-0.2) Erythrocyte Sedimentation Rate 28 (0-15) Sodium Level 138 mmol/L (136-145) Potassium Level 4.2 mmol/L (3.5-5.1) Chloride Level 102 mmol/L (98-107) Carbon Dioxide Level 29 mmol/L (21-32) Anion Gap 7 (6-14) Blood Urea Nitrogen 29 mg/dL (8-26) Creatinine 1.3 mg/dL (0.7-1.3) Estimated GFR (Cockcroft-Gault) 54.3 Glucose Level 82 mg/dL (70-99) Calcium Level 9.1 mg/dL (8.5-10.1) Medications Active Scripts Medications Dose Route/Sig Max Daily Dose Days Date Category Polyethylene Glycol 3350 2,500 Gm Powder 17 Gm PO BIDAC 12/19/18 Reported Zyprexa (Olanzapine) 5 Mg Tablet 5 Mg PO DAILY 12/19/18 Reported Zyprexa (Olanzapine) 2.5 Mg Tablet 1 Tab PO QHS 12/19/18 Reported Morphine 1 mg/2 ml Syringe (Morphine Sulfate/Pf) 1 Mg/2 Ml Syringe 2 Mg IV Q2H 12/19/18 Reported Metoprolol Tartrate 25 Mg Tablet 0.5 Tab PO BID 12/19/18 Reported Lisinopril 20 Mg Tablet 1 Tab PO DAILY 12/19/18 Reported Linzess (Linaclotide) 145 Mcg Capsule 145 Mcg PO DAILY07 12/19/18 Reported Lansoprazole 30 Mg Capsule.dr 30 Mg PO DAILY PRN 12/19/18 Reported Acidophilus (Lactobacillus Acidophilus) 1 Each Capsule 1 Each PO BID PRN 12/19/18 Reported Heparin 5,000 Unit/1,000 ml-Ns (Heparin Sod,Porcine/0.9 % NaCl) 5,000 Unit/1000 Ml Iv.soln 5,000 Unit IV Q8HRS PRN 12/19/18 Reported Lanoxin (Digoxin) 250 Mcg/1 Ml Ampul 250 Mcg IJ PRN Q6HRS PRN 12/19/18 Reported Celexa (Citalopram Hydrobromide) 40 Mg Tablet 1 Tab PO DAILY 12/19/18 Reported Atorvastatin Calcium 20 Mg Tablet 20 Mg PO HS PRN 12/19/18 Reported Aspirin Ec (Aspirin) 81 Mg Tablet.dr 81 Mg PO QODAY 12/19/18 Reported Impression . IMPRESSION: 1. Recurrent aspiration pneumonia. 2. Acute respiratory failure secondary to recurrent aspiration pneumonia. 3. Abnormal CT chest related to recurrent aspiration pneumonia. 4. History of tongue cancer, status post chemoradiation with dysphagia, status post gastric tube placement. 5. Chronic malnutrition present upon admission, status post gastrostomy tube placement. 6. Tobacco dependence, quit in 2004. 7. Multiple other comorbidities as indicated above. Plan . RESP STATUS IS IMPROVING AWAITING BC RESULTS IMPROVING WILL CONTINUE ANTIBX PER ID NPO FAILED VIDEO AVOID CAFFEINE D/W PT KIYA JOHNSON MD Dec 24, 2018 09:03
--- NOTE | 2018-12-24 09:14 | PDOC ---
Infectious Disease Note Subjective Subjective Feels ready to go home Mild cough is less Denies F/C/S/N/V/D/SOA ROS ROS o/w neg Vital Sign Vital Signs Vital Signs Date Time Temp Pulse Resp B/P (MAP) Pulse Ox O2 Delivery O2 Flow Rate FiO2 12/24/18 08:25 Nasal Cannula 2.0 12/24/18 08:04 71 168/88 12/24/18 07:52 95 12/24/18 07:00 97.5 16 97.5 Physical Exam PHYSICAL EXAM GENERAL: Propped up in bed, alert, watching TV - looks well HEENT: Pupils equally round, Oral cavity very dry NECK: Supple. LUNGS: Decreased breath sounds at bases. HEART: S1, S2. No rubs, gallops, or murmurs. ABDOMEN: Soft, mildly distended. PEG tube/maurizio button site - clean EXTREMITIES: No edema, no cyanosis. NEUROLOGIC: Alert and oriented x 3. Grossly nonfocal. PIV Labs Lab Laboratory Tests Test 12/24/18 05:42 White Blood Count 6.6 x10^3/uL (4.0-11.0) Red Blood Count 4.34 x10^6/uL (4.30-5.70) Hemoglobin 13.4 g/dL (13.0-17.5) Hematocrit 39.2 % (39.0-53.0) Mean Corpuscular Volume 90 fL (79-100) Mean Corpuscular Hemoglobin 31 pg (25-35) Mean Corpuscular Hemoglobin Concent 34 g/dL (31-37) Red Cell Distribution Width 14.4 % (11.5-14.5) Platelet Count 181 x10^3/uL (140-400) Neutrophils (%) (Auto) 73 % (31-73) Lymphocytes (%) (Auto) 16 % (24-48) Monocytes (%) (Auto) 8 % (0-9) Eosinophils (%) (Auto) 2 % (0-3) Basophils (%) (Auto) 1 % (0-3) Neutrophils # (Auto) 4.8 x10^3uL (1.8-7.7) Lymphocytes # (Auto) 1.1 x10^3/uL (1.0-4.8) Monocytes # (Auto) 0.5 x10^3/uL (0.0-1.1) Eosinophils # (Auto) 0.2 x10^3/uL (0.0-0.7) Basophils # (Auto) 0.0 x10^3/uL (0.0-0.2) Erythrocyte Sedimentation Rate 28 (0-15) Sodium Level 138 mmol/L (136-145) Potassium Level 4.2 mmol/L (3.5-5.1) Chloride Level 102 mmol/L (98-107) Carbon Dioxide Level 29 mmol/L (21-32) Anion Gap 7 (6-14) Blood Urea Nitrogen 29 mg/dL (8-26) Creatinine 1.3 mg/dL (0.7-1.3) Estimated GFR (Cockcroft-Gault) 54.3 Glucose Level 82 mg/dL (70-99) Calcium Level 9.1 mg/dL (8.5-10.1) Micro Microbiology 12/19/18 Blood Culture - Final, Complete NO GROWTH AFTER 5 DAYS Objective Assessment Fever at [facility] prior to admission at [facility], better Leukopenia - better Abdominal pain. Right lung infiltrate.- feels he is slowly getting better Renal insufficiency, better History of cancer of the tongue. History of urinary retention, status post self-catheterization. History of bipolar disorder, panic disorder, obsessive compulsive disorder, depression. History of gastroparesis, anorexia, Pastrana's esophagus, status post PEG tube placement. Plan Plan of Care D/c Zosyn and doxycycline since 12/19 Home with Augmentin suspension for 5 days - Rx given d/w nursing TALAT PAGAN MD Dec 24, 2018 09:14
--- NOTE | 2018-12-24 09:27 | PDOC ---
Subjective: Subjective: Thinks he might get to discharge today. Says no BM yesterday or today, then says "just a small one." Objective: Objective: Per RN - having loose/watery stools w/ Linzess and Miralax, NELSON-PRESLEY functioning , possible DC today. Vital Signs: Vital Signs Date Time Temp Pulse Resp B/P (MAP) Pulse Ox O2 Delivery O2 Flow Rate FiO2 12/24/18 08:25 Nasal Cannula 2.0 12/24/18 08:04 71 168/88 12/24/18 07:52 95 12/24/18 07:00 97.5 16 97.5 Labs: Laboratory Tests Test 12/24/18 05:42 White Blood Count 6.6 x10^3/uL Red Blood Count 4.34 x10^6/uL Hemoglobin 13.4 g/dL Hematocrit 39.2 % Mean Corpuscular Volume 90 fL Mean Corpuscular Hemoglobin 31 pg Mean Corpuscular Hemoglobin Concent 34 g/dL Red Cell Distribution Width 14.4 % Platelet Count 181 x10^3/uL Neutrophils (%) (Auto) 73 % Lymphocytes (%) (Auto) 16 % Monocytes (%) (Auto) 8 % Eosinophils (%) (Auto) 2 % Basophils (%) (Auto) 1 % Neutrophils # (Auto) 4.8 x10^3uL Lymphocytes # (Auto) 1.1 x10^3/uL Monocytes # (Auto) 0.5 x10^3/uL Eosinophils # (Auto) 0.2 x10^3/uL Basophils # (Auto) 0.0 x10^3/uL Erythrocyte Sedimentation Rate 28 Sodium Level 138 mmol/L Potassium Level 4.2 mmol/L Chloride Level 102 mmol/L Carbon Dioxide Level 29 mmol/L Anion Gap 7 Blood Urea Nitrogen 29 mg/dL Creatinine 1.3 mg/dL Estimated GFR (Cockcroft-Gault) 54.3 Glucose Level 82 mg/dL Calcium Level 9.1 mg/dL PE: GEN: NAD LUNGS: less coarse HEART: RRR ABD: NABS, S/ND/NT, NEL[place] in place NEURO/PSYCH: A & O 3, anxious A/P: Recurrent pneumonia, dysphagia/aspiration w/ NELSON-PRESLEY Psych issues/IBS 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 DC per primary, follow-up w/ established backhoe operator @ [facility]. LOUIE SHARP Dec 24, 2018 09:27
--- NOTE | 2018-12-24 10:13 | SNU/HH DC ---
DISCHARGE WITH HOME HEALTH DISCHARGE INFORMATION: Condition on Discharge: Stable CODE STATUS: Code Status: Full HOME HEALTH: Face to Face: I certify this patient is under my care and that I, or a nurse practitioner or physician's speech pathologist assistant working with me, had a face to face encounter that meets the physician face to face encounter requirements with this patient on []. Medical Complications: Other (resolving sepsis) Physical Therapy For: Evalulation/Treatment Occupational Therapy For: Evaluation/Treatment Home Health Aide For: Self-care SERVICE TRAINER For: Community Resources POST DISCHARGE ORDERS: DIET AFTER DISCHARGE: Cardiac CERTIFICATION STATEMENT: Certification Statement: Certification Statement: Based on the above finding, I certify that this patient is confined to the home and needs intermittent longterm care, physical therapy and/or speech therapy, or continues to need occupational therapy.~ This patient is under my care, and I have initiated the establishment of the plan of care.~ This patient will be followed by myself or a community physician who will periodically review the plan of care. Home Meds Active Scripts Spironolactone (ALDACTONE) 25 Mg Tablet, 25 MG PO DAILY for htn MDD 1, #30 TAB Prov:KEREN UMANA MD 12/23/18 Lisinopril (LISINOPRIL) 40 Mg Tablet, 40 MG PO DAILY for htn MDD 1, #30 TAB Prov:KEREN UMANA MD 12/23/18 Doxycycline Hyclate (DOXYCYCLINE HYCLATE) 100 Mg Tablet, 100 MG PO BID for aspiration MDD 1 for 7 Days, #14 TAB Prov:KEREN UMANA MD 12/23/18 Reported Medications Polyethylene Glycol 3350 (POLYETHYLENE GLYCOL 3350) 2,500 Gm Powder, 17 GM PO BIDAC for stool, #527 GM 11 Refills 12/19/18 Olanzapine (ZYPREXA) 5 Mg Tablet, 5 MG PO DAILY for mental health, TAB 12/19/18 Olanzapine (ZYPREXA) 2.5 Mg Tablet, 1 TAB PO QHS for mental health, #30 TAB 1 Refill 12/19/18 Morphine Sulfate/Pf (Morphine 1 mg/2 ml Syringe) 1 Mg/2 Ml Syringe, 2 MG IV Q2H for pain, SYR 12/19/18 Metoprolol Tartrate (METOPROLOL TARTRATE) 25 Mg Tablet, 0.5 TAB PO BID for blood pressure, #180 TAB 1 Refill 12/19/18 Linaclotide (LINZESS) 145 Mcg Capsule, 145 MCG PO DAILY07 for irritable bowel, CAP 12/19/18 Lansoprazole (LANSOPRAZOLE) 30 Mg Capsule.dr, 30 MG PO DAILY PRN for stomach, CAP 12/19/18 Lactobacillus Acidophilus (ACIDOPHILUS) 1 Each Capsule, 1 EACH PO BID PRN for probiotic, CAP 12/19/18 Digoxin (LANOXIN) 250 Mcg/1 Ml Ampul, 250 MCG IJ PRN Q6HRS PRN for heart rate, VIAL 12/19/18 Citalopram Hydrobromide (CELEXA) 40 Mg Tablet, 1 TAB PO DAILY for depression, # 30 TAB 1 Refill 12/19/18 Atorvastatin Calcium (ATORVASTATIN CALCIUM) 20 Mg Tablet, 20 MG PO HS PRN for cholesterol, #30 TAB 0 Refills 12/19/18 Aspirin (ASPIRIN EC) 81 Mg Tablet., 81 MG PO QODAY for blood, TAB.SR 12/19/18 Discontinued Reported Medications Lisinopril (LISINOPRIL) 20 Mg Tablet, 1 TAB PO DAILY for blood pressure, #30 TAB 5 Refills 12/19/18 Heparin Sod,Porcine/0.9 % NaCl (Heparin 5,000 Unit/1,000 ml-Ns) 5,000 Unit/1000 Ml Iv.soln, 5000 UNIT IV Q8HRS PRN for blood thinner, MISC 12/19/18 RANJIT DIAZ III DO Dec 24, 2018 10:13
--- NOTE | 2018-12-24 10:31 | PDOC ---
PROGRESS NOTES Chief Complaint Chief Complaint 1. Recurrent aspiration pneumonia. 2. Acute respiratory failure secondary to recurrent aspiration pneumonia. 3. Abnormal CT chest related to recurrent aspiration pneumonia. 4. History of tongue cancer, status post chemoradiation with dysphagia, status post gastric tube placement. 5. Chronic malnutrition present upon admission, status post gastrostomy tube placement. 6. Tobacco dependence, quit in 2004. 7. Multiple other comorbidities as indicated above. 8. Recurrent pneumonia, dysphagia, NELSON-PRESLEY in place 9. 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 NSTEMI, CAD hx\ 12. NON sustained V. tach 12/22/18, asymptomatic History of Present Illness History of Present Illness Pt seen and examined this am. Standing up walking around room with nurse. Pt wearing Oxygen, no new complaints. Afebrile, on empiric Zosyn and doxy. Vitals Vitals Vital Signs Date Time Temp Pulse Resp B/P (MAP) Pulse Ox O2 Delivery O2 Flow Rate FiO2 12/24/18 08:25 Nasal Cannula 2.0 12/24/18 08:04 71 168/88 12/24/18 07:52 95 12/24/18 07:00 97.5 16 97.5 Physical Exam General: Alert, Cooperative, No acute distress, Other (wearing O2, walking with nurse) Heart: Regular rate, Normal S1, Normal S2, No murmurs Lungs: Clear, Other (no ronchi, wheezing or crckles, normal respiratory effort) Abdomen: Soft, No hepatosplenomegaly, Other (PEG tube in place, C/D/I) Extremities: No cyanosis, No edema, No tenderness/swelling Skin: No rashes, No breakdown, No significant lesion Labs LABS Laboratory Tests Test 12/24/18 05:42 White Blood Count 6.6 x10^3/uL (4.0-11.0) Red Blood Count 4.34 x10^6/uL (4.30-5.70) Hemoglobin 13.4 g/dL (13.0-17.5) Hematocrit 39.2 % (39.0-53.0) Mean Corpuscular Volume 90 fL (79-100) Mean Corpuscular Hemoglobin 31 pg (25-35) Mean Corpuscular Hemoglobin Concent 34 g/dL (31-37) Red Cell Distribution Width 14.4 % (11.5-14.5) Platelet Count 181 x10^3/uL (140-400) Neutrophils (%) (Auto) 73 % (31-73) Lymphocytes (%) (Auto) 16 % (24-48) Monocytes (%) (Auto) 8 % (0-9) Eosinophils (%) (Auto) 2 % (0-3) Basophils (%) (Auto) 1 % (0-3) Neutrophils # (Auto) 4.8 x10^3uL (1.8-7.7) Lymphocytes # (Auto) 1.1 x10^3/uL (1.0-4.8) Monocytes # (Auto) 0.5 x10^3/uL (0.0-1.1) Eosinophils # (Auto) 0.2 x10^3/uL (0.0-0.7) Basophils # (Auto) 0.0 x10^3/uL (0.0-0.2) Erythrocyte Sedimentation Rate 28 (0-15) Sodium Level 138 mmol/L (136-145) Potassium Level 4.2 mmol/L (3.5-5.1) Chloride Level 102 mmol/L (98-107) Carbon Dioxide Level 29 mmol/L (21-32) Anion Gap 7 (6-14) Blood Urea Nitrogen 29 mg/dL (8-26) Creatinine 1.3 mg/dL (0.7-1.3) Estimated GFR (Cockcroft-Gault) 54.3 Glucose Level 82 mg/dL (70-99) Calcium Level 9.1 mg/dL (8.5-10.1) Review of Systems Review of Systems No nausea/ vomiting; No new fever or chills Assessment and Plan Assessmemt and Plan Assessment: Mr. Alatorre is a 73yo male who presented with sepsis 2/2 aspiration pneumonia. Acute respiratory failure 2/2 aspiration PNA Pastrana's esophagus Psych issues dysphagia/aspiration w/ NELSON-PRESLEY Leukopenia, improving Abdominal pain, improved Right lung infiltrate Renal insufficiency, improved Plan: D/c today with Home Health, discussed care with case folder. Out pt cardiology workup, appreciate Cardiology imput Appreciate I.D. input, on Zosyn & Doxy awaiting blood Cx Continue breathing treatments, Anitra Failed inial swallow study, DIRECT SALES PROFESSIONAL to revaluate today PT/OT orders Comment Review of Relevant I have reviewed the following items edi (where applicable) has been applied. Labs Laboratory Tests Test 12/24/18 05:42 White Blood Count 6.6 x10^3/uL (4.0-11.0) Red Blood Count 4.34 x10^6/uL (4.30-5.70) Hemoglobin 13.4 g/dL (13.0-17.5) Hematocrit 39.2 % (39.0-53.0) Mean Corpuscular Volume 90 fL (79-100) Mean Corpuscular Hemoglobin 31 pg (25-35) Mean Corpuscular Hemoglobin Concent 34 g/dL (31-37) Red Cell Distribution Width 14.4 % (11.5-14.5) Platelet Count 181 x10^3/uL (140-400) Neutrophils (%) (Auto) 73 % (31-73) Lymphocytes (%) (Auto) 16 % (24-48) Monocytes (%) (Auto) 8 % (0-9) Eosinophils (%) (Auto) 2 % (0-3) Basophils (%) (Auto) 1 % (0-3) Neutrophils # (Auto) 4.8 x10^3uL (1.8-7.7) Lymphocytes # (Auto) 1.1 x10^3/uL (1.0-4.8) Monocytes # (Auto) 0.5 x10^3/uL (0.0-1.1) Eosinophils # (Auto) 0.2 x10^3/uL (0.0-0.7) Basophils # (Auto) 0.0 x10^3/uL (0.0-0.2) Erythrocyte Sedimentation Rate 28 (0-15) Sodium Level 138 mmol/L (136-145) Potassium Level 4.2 mmol/L (3.5-5.1) Chloride Level 102 mmol/L (98-107) Carbon Dioxide Level 29 mmol/L (21-32) Anion Gap 7 (6-14) Blood Urea Nitrogen 29 mg/dL (8-26) Creatinine 1.3 mg/dL (0.7-1.3) Estimated GFR (Cockcroft-Gault) 54.3 Glucose Level 82 mg/dL (70-99) Calcium Level 9.1 mg/dL (8.5-10.1) Laboratory Tests Test 12/24/18 05:42 White Blood Count 6.6 x10^3/uL (4.0-11.0) Red Blood Count 4.34 x10^6/uL (4.30-5.70) Hemoglobin 13.4 g/dL (13.0-17.5) Hematocrit 39.2 % (39.0-53.0) Mean Corpuscular Volume 90 fL (79-100) Mean Corpuscular Hemoglobin 31 pg (25-35) Mean Corpuscular Hemoglobin Concent 34 g/dL (31-37) Red Cell Distribution Width 14.4 % (11.5-14.5) Platelet Count 181 x10^3/uL (140-400) Neutrophils (%) (Auto) 73 % (31-73) Lymphocytes (%) (Auto) 16 % (24-48) Monocytes (%) (Auto) 8 % (0-9) Eosinophils (%) (Auto) 2 % (0-3) Basophils (%) (Auto) 1 % (0-3) Neutrophils # (Auto) 4.8 x10^3uL (1.8-7.7) Lymphocytes # (Auto) 1.1 x10^3/uL (1.0-4.8) Monocytes # (Auto) 0.5 x10^3/uL (0.0-1.1) Eosinophils # (Auto) 0.2 x10^3/uL (0.0-0.7) Basophils # (Auto) 0.0 x10^3/uL (0.0-0.2) Erythrocyte Sedimentation Rate 28 (0-15) Sodium Level 138 mmol/L (136-145) Potassium Level 4.2 mmol/L (3.5-5.1) Chloride Level 102 mmol/L (98-107) Carbon Dioxide Level 29 mmol/L (21-32) Anion Gap 7 (6-14) Blood Urea Nitrogen 29 mg/dL (8-26) Creatinine 1.3 mg/dL (0.7-1.3) Estimated GFR (Cockcroft-Gault) 54.3 Glucose Level 82 mg/dL (70-99) Calcium Level 9.1 mg/dL (8.5-10.1) Microbiology 12/19/18 Blood Culture - Final, Complete NO GROWTH AFTER 5 DAYS Medications Current Medications Sodium Chloride 1,000 ml @ 60 mls/hr [id number] IV Last administered on at 17:11; Start 12/18/18 at 23:45; Stop 12/20/18 at 12:17; Status DC Piperacillin Sod/ Tazobactam Sod (Zosyn Per Pharmacy) 1 each PRN DAILY PRN MC SEE COMMENTS; Start 12/19/18 at 00:15 Levofloxacin/ Dextrose (Levaquin Per Pharmacy) 1 each PRN DAILY PRN MC SEE COMMENTS; Start 12/19/18 at 00:15; Stop 12/19/18 at 15:02; Status DC Vancomycin HCl (Vanco Per Pharmacy) 1 each PRN DAILY PRN MC SEE COMMENTS Last administered on 12/21/18at 02:51; Start 12/19/18 at 00:30; Stop 12/21/18 at 12:43 ; Status DC Levofloxacin/ Dextrose 150 ml @ 100 mls/hr Q24H IV ; Start 12/19/18 at 19:00; Stop 12/19/18 at 19:00; Status DC Piperacillin Sod/ Tazobactam Sod 4.5 gm/Sodium Chloride 100 ml @ 200 mls/hr Q8HRS IV Last administered on 12/19/18at 13:55; Start 12/19/18 at 06:00; Stop at 15:05; Status DC Vancomycin HCl 1 gm/Sodium Chloride 250 ml @ 250 mls/hr Q24H IV Last administered on 12/20/18at 22:02; Start 12/19/18 at 22:00; Stop 12/21/18 at 03:00 ; Status DC Vancomycin HCl (Vancomycin Trough Level) 1 each 1X ONCE MC Last administered on 12/20/18at 21:30; Start 12/20/18 at 21:30; Stop 12/20/18 at 21:31; Status DC Albuterol/ Ipratropium (Duoneb) 3 ml RTQID NEB Last administered on 12/24/18at 07 :52; Start 12/19/18 at 08:00 Hydromorphone HCl (Dilaudid) 0.5 mg PRN Q4HRS PRN IVP PAIN; Start 12/19/18 at 06:30 Ondansetron HCl (Zofran) 4 mg PRN Q6HRS PRN IV NAUSEA/VOMITING; Start 12/19/18 at 06:30; Status Cancel Pantoprazole Sodium (PROTONIX VIAL for IV PUSH) 40 mg DAILYAC IVP Last administered on 12/19/18 08:05; Start 12/19/18 at 07:30; Stop 12/19/18 at 14:26 ; Status DC Doxycycline Hyclate (Vibra-Tab) 100 mg BID PO Last administered on 12/24/18 08: 03; Start 12/19/18 at 09:30 Enoxaparin Sodium (Lovenox 40mg Syringe) 40 mg Q24H SQ Last administered on 08:04; Start 12/19/18 at 11:00 Aspirin (Ecotrin) 81 mg DAILY08 PO Last administered on 12/24/18 08:03; Start 12/19/18 at 14:30 Atorvastatin Calcium (Lipitor) 20 mg HS PO Last administered on 12/23/18 21:33 ; Start 12/19/18 at 21:00 Digoxin (Lanoxin) 250 mcg PRN Q6HRS PRN IV heart rate; Start 12/19/18 at 13:30 Lisinopril (Prinivil) 20 mg DAILY PO Last administered on 12/20/18 08:18; Start 12/19/18 at 14:30; Stop 12/21/18 at 08:06; Status DC Metoprolol Tartrate (Lopressor) 12.5 mg BID PO Last administered on 12/21/18 08:19; Start 12/19/18 at 21:00; Stop 12/21/18 at 09:06; Status DC Citalopram Hydrobromide (CeleXA) 40 mg DAILY PO ; Start 12/19/18 at 14:30; Stop 12/19/18 at 17:07; Status DC Lactobacillus Rhamnosus (Culturelle) 1 cap BID PO Last administered on 08:03; Start 12/19/18 at 21:00 Lansoprazole (Prevacid) 30 mg DAILY FT Last administered on 12/20/18 08:17; Start 12/19/18 at 15:00; Stop 12/20/18 at 15:25; Status DC Non-Formulary Medication (Linaclotide (Linzess)) 145 mcg DAILY07 PO Last administered on 12/21/18 08:17; Start 12/19/18 at 17:30 Olanzapine (ZyPREXA) 2.5 mg QHS PO Last administered on 12/23/18at 21:33; Start 12/19/18 at 21:00 Olanzapine (ZyPREXA) 5 mg DAILY PO Last administered on 12/24/18at 08:04; Start 12/20/18 at 09:00 Polyethylene Glycol (miraLAX PACKET) 17 gm BIDAC PO ; Start 12/19/18 at 16:30; Stop 12/19/18 at 16:53; Status DC Piperacillin Sod/ Tazobactam Sod 3.375 gm/Sodium Chloride 50 ml @ 100 mls/hr Q6HRS IV Last administered on 12/24/18at 05:51; Start 12/19/18 at 19:00 Spironolactone (Aldactone) 25 mg DAILY PO Last administered on 12/24/18at 08:04; Start 12/19/18 at 15:30 Ondansetron HCl (Zofran) 4 mg PRN Q4HRS PRN IV NAUSEA/VOMITING; Start 12/19/18 at 15:15 Zolpidem Tartrate (Ambien) 5 mg PRN QHS PRN PO INSOMNIA; Start 12/19/18 at 15: 15 Acetaminophen (Tylenol) 650 mg PRN Q4HRS PRN PO TEMP OVER 100.4F OR MILD PAIN Last administered on 12/21/18at 14:31; Start 12/19/18 at 15:15 Clonidine HCl (Catapres) 0.1 mg PRN Q6HRS PRN PO SBP>160 OR DBP>90 Last administered on 12/20/18at 03:30; Start 12/19/18 at 15:15 Sodium Monofluorophosphate (Fleet Adult) 133 ml PRN DAILY PRN HI CONSTIPATION; Start 12/19/18 at 15:15 Docusate Sodium (Colace) 100 mg PRN BID PRN PO CONSTIPATION; Start 12/19/18 at 15:15 Lorazepam (Ativan) 0.5 mg PRN Q4HRS PRN PO ANXIETY / AGITATION; Start 12/19/18 at 15:15 Polyethylene Glycol (miraLAX PACKET) 17 gm BID PO Last administered on at 08:04; Start 12/19/18 at 21:00 Lansoprazole (Prevacid) 30 mg DAILY FT ; Start 12/20/18 at 09:00; Status UNV Non-Formulary Medication 1 ea DAILY PO Last administered on 12/24/18at 08:05; Start 12/20/18 at 09:00 Hydralazine HCl (Apresoline Inj) 10 mg PRN Q4HRS PRN IVP ELEVATED BP, SEE COMMENTS; Start 12/20/18 at 08:45 Barium Sulfate (Varibar Thin Liquid Apple) 148 gm 1X ONCE PO Last administered on 12/20/18at 10:45; Start 12/20/18 at 10:45; Stop 12/20/18 at 10:46 ; Status DC Lansoprazole (Prevacid) 30 mg BIDAC FT Last administered on 12/24/18at 08:04; Start 12/20/18 at 16:30 Vancomycin HCl 1 gm/Sodium Chloride 250 ml @ 250 mls/hr Q18H IV ; Start at 16:00; Stop 12/21/18 at 16:00; Status DC Vancomycin HCl (Vancomycin Trough Level) 1 each 1X ONCE MC ; Start 12/23/18 at 03:30; Stop 12/23/18 at 03:30; Status DC Lisinopril (Prinivil) 40 mg DAILY PO Last administered on 12/24/18at 08:04; Start 12/21/18 at 09:00 Metoprolol Tartrate (Lopressor) 25 mg BID PO Last administered on 12/24/18at 08: 04; Start 12/21/18 at 09:10 Active Scripts Active Aldactone (Spironolactone) 25 Mg Tablet 25 Mg PO DAILY MDD 1 Lisinopril 40 Mg Tablet 40 Mg PO DAILY MDD 1 Doxycycline Hyclate 100 Mg Tablet 100 Mg PO BID MDD 1 7 Days Reported Polyethylene Glycol 3350 2,500 Gm Powder 17 Gm PO BIDAC Zyprexa (Olanzapine) 5 Mg Tablet 5 Mg PO DAILY Zyprexa (Olanzapine) 2.5 Mg Tablet 1 Tab PO QHS Morphine 1 mg/2 ml Syringe (Morphine Sulfate/Pf) 1 Mg/2 Ml Syringe 2 Mg IV Q2H Metoprolol Tartrate 25 Mg Tablet 0.5 Tab PO BID Lisinopril 20 Mg Tablet 1 Tab PO DAILY Linzess (Linaclotide) 145 Mcg Capsule 145 Mcg PO DAILY07 Lansoprazole 30 Mg Capsule.dr 30 Mg PO DAILY PRN Acidophilus (Lactobacillus Acidophilus) 1 Each Capsule 1 Each PO BID PRN Heparin 5,000 Unit/1,000 ml-Ns (Heparin Sod,Porcine/0.9 % NaCl) 5,000 Unit/1000 Ml Iv.soln 5,000 Unit IV Q8HRS PRN Lanoxin (Digoxin) 250 Mcg/1 Ml Ampul 250 Mcg IJ PRN Q6HRS PRN Celexa (Citalopram Hydrobromide) 40 Mg Tablet 1 Tab PO DAILY Atorvastatin Calcium 20 Mg Tablet 20 Mg PO HS PRN Aspirin Ec (Aspirin) 81 Mg Tablet.dr 81 Mg PO QODAY Vitals/I & O Vital Sign - Last 24 Hours 12/23/18 12/23/18 12/23/18 12/23/18 11:00 11:16 15:13 15:24 Temp 97.6 97.4 97.6 97.4 Pulse 62 60 Resp 20 20 B/P (MAP) 147/57 (87) 101/63 (76) Pulse Ox 92 92 O2 Delivery Nasal Cannula Nasal Cannula Nasal Cannula Nasal Cannula O2 Flow Rate 2.0 2.0 2.0 2.0 12/23/18 12/23/18 12/23/18 12/23/18 19:00 20:10 20:31 21:34 Temp 97.7 97.7 Pulse 61 61 Resp 18 B/P (MAP) 125/65 (85) 125/65 Pulse Ox 93 93 O2 Delivery Nasal Cannula Nasal Cannula Nasal Cannula O2 Flow Rate 2.0 2.0 2.0 12/23/18 12/24/18 12/24/18 12/24/18 23:00 03:00 07:00 07:52 Temp 97.4 98.2 97.5 97.4 98.2 97.5 Pulse 59 70 71 Resp 18 18 16 B/P (MAP) 146/77 (100) 167/84 (111) 168/88 (114) Pulse Ox 92 94 96 95 O2 Delivery Nasal Cannula Nasal Cannula Nasal Cannula Nasal Cannula O2 Flow Rate 2.0 2.0 2.0 2.0 12/24/18 12/24/18 12/24/18 08:04 08:04 08:25 Pulse 71 71 B/P (MAP) 168/88 168/88 O2 Delivery Nasal Cannula O2 Flow Rate 2.0 Intake and Output 12/23/18 12/23/18 12/24/18 15:00 23:00 07:00 Intake Total 1500 ml 1430 ml Balance 1500 ml 1430 ml Nutrition Consultation Dietary Evaluation: Comments: REC Tube feed per following: Jevity 1.5 bolus, 1 carton in the morning, 2 cartons in the afternoon, 2 cartons in the evening w/16 oz (473 ml) w/each feeding Expected Outcomes/Goals: TF intake to meet >75% est needs Malnutrition Findings: Body Fat Depletion (Non Severe: Mild Depletion Weight Status: Appropriate RANJIT DIAZ K III DO Dec 24, 2018 10:31
[2018-12-24 11:00] VITALS: BP 105/58
[2018-12-24] MEDS ORDERED: AMOXICILLIN/CLAV 400MG/57MG 5 ML ORAL.SUSP. PEG SCH (12:00)
[2018-12-24] MEDS: ENOXAPARIN 40 MG/0.4 ML SYRINGE. SQ SCH (12:07)
--- NOTE | 2018-12-24 14:39 | NUR ---
JESSICA following pt. JESSICA faxed resumption orders to [facility]. Orders for home 02 approved by [facility] and JESSICA provided pt with a tank to take home. Pt notified to call [facility] once he arrives home so they can provide him with concentrator and equipment. Discussed with RN.
--- NOTE | 2018-12-24 15:04 | NUR ---
Discharge Note: VIRGILIO BARBER Discharge instructions and discharge home medications reviewed with Spouse and a copy given. All questions have been answered and understanding verbalized. The following instructions and handouts were given: discharge instructions, new prescriptions, education and follow up information. Discontinued lines and drains: Peripheral IV discontinued intact. Patient discharged to Home w/services with Spouse via Wheelchair off unit by MARY.
--- NOTE | 2018-12-24 20:08 | DS ---
DATE OF DISCHARGE: 12/24/2018 ADMISSION DIAGNOSES: 1. Sepsis. 2. Aspiration pneumonia. DISCHARGE DIAGNOSES: 1. Resolving sepsis. 2. Aspiration pneumonia. 3. History of tongue cancer status post chemoradiation. 4. History of PEG tube placement. 5. Malnutrition. 6. Tobacco abuse. 7. Pastrana's esophagus. 8. History of coronary disease, brief ventricular tachycardia 2 days ago. CONSULTS: Cardiology, Pulmonary, Infectious Disease, and GI. PROCEDURES: None. HOSPITAL COURSE: The patient is a pleasant elderly male who basically presented with sepsis and respiratory failure. He was actually transferred from [facility] in [place]. He was admitted. The above consults were obtained. We gave him antibiotics, breathing treatments, oxygen and steroids, consulted ID and over the past 5 or 6 days he has returned to his baseline. This morning, I saw and examined. He was up walking with physical therapy. His heart tones were normal. His lungs were mostly clear, but diminished. Abdomen was soft. Extremities had trace edema. Skin is thin. Overall, the patient is at his baseline. We plan to discharge to home with home health. DISPOSITION: Home with home health. ACTIVITY: As tolerated. DIET: Low sodium. MEDICATIONS: Please see the MRAD. TOTAL TIME: 32 minutes. RANJIT DIAZ DO DR: LONDON/kirsten JOB#: [id number] / [id number]
== END 2018-12-24 15:06 | disposition home health service (06) | DRG 871 ==
LOC: 1 WEST ICU 23:31 → 5 NORTH 12-19 15:08
PROVIDERS: ADMIT Family Medicine; ATTEND Family Medicine
DX: A41.9 Sepsis, unspecified organism (principal); J69.0 Pneumonitis due to inhalation of food and vomit; J96.01 Acute respiratory failure with hypoxia; I21.4 Non-ST elevation (NSTEMI) myocardial infarction; N17.9 Acute kidney failure, unspecified; E46 Unspecified protein-calorie malnutrition; I47.2 Ventricular tachycardia; J44.1 Chronic obstructive pulmonary disease with (acute) exacerbation; J44.0 Chronic obstructive pulmonary disease with (acute) lower respiratory infection; F10.10 Alcohol abuse, uncomplicated; K22.70 Barrett's esophagus without dysplasia; F17.200 Nicotine dependence, unspecified, uncomplicated; Z92.21 Personal history of antineoplastic chemotherapy; Z92.3 Personal history of irradiation; Z85.810 Personal history of malignant neoplasm of tongue; R13.10 Dysphagia, unspecified; R33.9 Retention of urine, unspecified; Z93.1 Gastrostomy status; C02.9 Malignant neoplasm of tongue, unspecified; D63.8 Anemia in other chronic diseases classified elsewhere; E78.5 Hyperlipidemia, unspecified; F03.90 Unspecified dementia, unspecified severity, without behavioral disturbance, psychotic disturbance, mood disturbance, and anxiety; F20.9 Schizophrenia, unspecified; F31.9 Bipolar disorder, unspecified; F41.0 Panic disorder [episodic paroxysmal anxiety]; F42.9 Obsessive-compulsive disorder, unspecified; I10 Essential (primary) hypertension; I25.10 Atherosclerotic heart disease of native coronary artery without angina pectoris; I44.0 Atrioventricular block, first degree; K21.9 Gastro-esophageal reflux disease without esophagitis; K58.1 Irritable bowel syndrome with constipation; K80.20 Calculus of gallbladder without cholecystitis without obstruction; M85.80 Other specified disorders of bone density and structure, unspecified site; N31.9 Neuromuscular dysfunction of bladder, unspecified; R47.02 Dysphasia; Z79.82 Long term (current) use of aspirin; Z80.1 Family history of malignant neoplasm of trachea, bronchus and lung; Z80.6 Family history of leukemia; Z81.3 Family history of other psychoactive substance abuse and dependence; Z81.8 Family history of other mental and behavioral disorders; Z82.49 Family history of ischemic heart disease and other diseases of the circulatory system; Z87.01 Personal history of pneumonia (recurrent); Z83.3 Family history of diabetes mellitus; F41.9 Anxiety disorder, unspecified; G51.0 Bell's palsy; M19.90 Unspecified osteoarthritis, unspecified site; Z88.8 Allergy status to other drugs, medicaments and biological substances; Z68.24 Body mass index [BMI] 24.0-24.9, adult
CPT/HCPCS: 36415; 36600; 71045; 74230; 80048; 80053; 80061; 80202; 81001; 82805; 83605; 84145; 84443; 84484; 85025; 85651; 87040; 87641; 93005; 93306; 94618; 94640; 94760; C9113; J1650; J2543; J3370; J7030; J7050; J7620; 92526; 92611; 97110; 97116; 97530; 97535

== ENCOUNTER → 2019-05-07 | Outpatient (CLI) | payer MEDICARE, BC ==
[~2019-05-07] MED LIST: ASPI-612 PO; ATOR20TA58 PO; CITA40TA12 PO; CYAN-9 PO; DOXY100T PO; ESCITALOPRAM OX20 MG PO; IOHEXOL 180 MG/ML 10 ML VIAL. ONE; LACT1CAP2 PO; LANS30CA PO; LINZESS145 MCG PO; LISI-130 PO; LISI-334 PO; METO25TA4 PO; MORP1SYR2 IV; OLAN2.5T3 PO; OLAN5TAB3 PO; OLAN5TAB9 PO; PANT40TA77 PO; POLY17PO29 PO; POLY2500 PO; SPIR25TA PO; [UNRECOGNIZED DRUG - CODE] IJ; [UNRECOGNIZED DRUG - CODE] IV; methylPREDNISolone ACETATE 40 MG/ML VIAL. ONE; methylPREDNISolone ACETATE 80 MG/ML VIAL. ONE
--- NOTE | 2019-05-07 13:18 | PAIN ---
DATE OF SERVICE: 05/07/2019 INITIAL CONSULTATION FOR PAIN CLINIC CHIEF COMPLAINT: Low back and bilateral lower extremity pain. HISTORY OF PRESENT ILLNESS: This is a 74-year-old male who presents with history of pain for about 3 years. He had a fall and suffered L2 compression fracture at that time. The patient reports he has had significant pain in low back that is beginning to radiate into the lower extremities now over the past year or so in the bilateral posterior gluteus, posterior thighs, posterior calf with numbness in the feet, slightly worse on the right than the left, but present bilaterally. The patient reports it is worse with walking, standing, getting up from a seated position especially. He has been using a cane in his right hand when he is walking. It does not awaken him from sleep at night, feels much better with sitting or lying down, does affect his ability to walk; however, again, this patient is using a cane. The patient has had some physical therapies in the past, which were not specifically helpful. Also chiropractic treatment, which he reports was not helpful as well. No other modalities. He was doing some stretching on his own, but that is about all recently. The patient reports the pain is not constant, intermittent in intensity, but constantly present. The patient reports that changes during the day with activity, worse with standing, walking, changing positions, radiating into the lower extremities, mostly posteriorly is noted. The patient rates his disability rating from 0-10, 10 being the worst, as an 8 and family home responsibilities, recreation, social activity, occupation and sexual behavior and life support activities, 8-9 with self-care activities. The patient did have MRI scan of the lumbar spine, L4-L5 shows mild left foraminal disk bulging with no evidence of left foraminal nerve root impingement. No evidence of disk herniation. L5-S1 shows mild circumferential annular disk bulging and dorsal endplate osteophyte formation with probable left foraminal L5 nerve root impingement and right foraminal extraforaminal disk bulging and endplate osteophyte formation resulting in mild to moderate right foraminal stenosis with probable right foraminal L5 nerve root impingement. PAST MEDICAL HISTORY: Significant for COPD, hypertension, history of tongue cancer in 2004, status post chemotherapy, radiation and surgery. The patient had a feeding tube, nonfunctioning bladder. PREVIOUS SURGERY: Include inguinal hernia resection, right inguinal hernia repair, left hand surgery, carotid endarterectomy and a feeding tube placement, also radiation from first tongue cancer. CURRENT MEDICATIONS: Include MiraLax, carbamazepine, Linzess, escitalopram, vitamin B12, atorvastatin, daily baby aspirin, venlafaxine. ALLERGIES: THE PATIENT IS ALLERGIC TO NORVASC. FAMILY HISTORY: Significant for cancers. SOCIAL HISTORY: The patient does not drink alcohol, does not smoke, does not use any illegal, illicit or recreational drugs. He is , lives in [place], [place], has one child, living at home, and is currently on disability. REVIEW OF SYSTEMS: The patient's review of systems is positive for those items mentioned in history of present illness. All systems reviewed and otherwise negative. It is complete, full and well documented on the patient's chart. PHYSICAL EXAMINATION: VITAL SIGNS: The patient's blood pressure 130/80, pulse 62, respirations 18, temperature is not performed per patient request from his mouth pain. The patient's height is 5 feet 7 inches, weighs 150 pounds. GENERAL: The patient is awake, alert, oriented, appropriate, very pleasant demeanor. HEENT: Head is normocephalic, atraumatic. Extraocular movements are intact and symmetrical. The patient's right eye is larger with some previous damage or chemotherapy. Oral cavity shows mucous membranes moist and pink with some changes for chemotherapy noted and some pallor on the tongue as well as the cheeks itself internally. NECK: Shows anterior throat supple without palpable lymphadenopathy noted. Swallow reflex is symmetrical. CHEST: Shows normal on inspection. Breath sounds are clear bilaterally. HEART: Shows S1, S2 clear. No murmurs auscultated. ABDOMEN: Soft, nontender, nondistended. The patient has a feeding tube in the left upper quadrant anteriorly. No rebound or guarding demonstrated. BACK: The patient's back shows spine grossly in the midline, slightly exaggerated thoracic kyphosis and minor flattening of lumbar lordotic curvature. Lumbar paraspinous muscle shows symmetrical on inspection, on palpation shows some moderate tenderness diffusely bilaterally going diffusely without significant radiation. The patient has good rotational motion of lumbar spine, both laterally greater than 10 degrees right and left as well as extension greater than 10 degrees, forward flexion 45 degrees without significant increase in pain reported. EXTREMITIES: The patient's lower extremities show deep tendon reflexes at 1+ in the patellar, tendo-calcaneus tendons are equal. Motor exam is 4 on a scale of 5, but symmetrical bilaterally and equal as well, right and left. The patient's peripheral pulses are 1+ posterior tibia. No peripheral edema is noted bilaterally as well. Straight leg raise noted to be positive bilaterally about 40-45 degrees, decreased with knee flexion. Gaenslen's and Freeman's maneuvers are grossly negative bilaterally. The patient's skin shows warm and dry, good turgor. No significant edema, sores, rashes or bruising noted. The patient is able to stand, has difficulty trying to stand on his toes. He is using a cane in his right hand and has a shuffling gait with ambulation. IMPRESSION: 1. This is a 74-year-old male with approximately 3-year history of increasing pain, low back, lower extremity bilaterally, right and left in a radicular fashion. 2. MRI scan of lumbar spine as noted. 3. History of tongue cancer status post radiation and chemotherapy. 4. Chronic obstructive pulmonary disease. 5. Hypertension. 6. Arthritis. PLAN: Options were discussed with the patient including conservative medical managements, physical therapies and interventional techniques. He would like to pursue interventional techniques. He has done therapy in the past without significant improvement. We discussed a lumbar epidural steroid injection using description as well as anatomical models to describe the procedure. Risks were then discussed including, but not limited to bleeding, infection, possibility of epidural hematoma, subsequent neurological compromise, dural puncture, headaches, spinal cord and/or nerve damage, side effects of steroid medication and poor results regarding pain control. The patient understands and wished to proceed. The patient will return to clinic in approximately 2 weeks for followup. He was counseled as to return appointment, activity level and side effects to be aware of. DIAGNOSES: Lumbar radiculopathy with lumbar spinal stenosis, lumbar degenerative disk disease. PROCEDURE: Lumbar epidural steroid injection, translaminar approach at L5-S1 level using C-arm fluoroscopic guidance under sterile prep and drape, using local anesthetic. MEDICATION INJECTED: A total of 120 mg Depo-Medrol plus 10 mL of preservative-free normal saline and 2 mL of contrast. CONDITION AT DISCHARGE: Stable. The patient tolerated the procedure well, had no complications. BRIANNA CASTILLO MD DR: Eugene JOB#: [id number] / [id number]
== END ==
LOC: PNCL 10:00
PROVIDERS: ATTEND Anesthesiology
DX: M51.16 Intervertebral disc disorders with radiculopathy, lumbar region (principal); J45.909 Unspecified asthma, uncomplicated; I10 Essential (primary) hypertension; Z98.890 Other specified postprocedural states; Z85.810 Personal history of malignant neoplasm of tongue; Z79.82 Long term (current) use of aspirin
CPT/HCPCS: 62323; J1030; J1040; Q9965

== ENCOUNTER → 2019-06-03 | Outpatient (CLI) | payer MEDICARE, BC ==
[~2019-06-03] MED LIST changes: +HEPA500055 IV; -[UNRECOGNIZED DRUG - CODE] IV
--- NOTE | 2019-06-04 07:32 | PAIN ---
DATE OF SERVICE: 06/03/2019 PROGRESS NOTE FOR PAIN CLINIC DIAGNOSES: Lumbar radiculopathy with lumbar spinal stenosis, lumbar degenerative disk disease. HISTORY OF PRESENT ILLNESS: The patient is a 74-year-old male who returns for followup, status post lumbar epidural steroid injection x1. The patient reports about 75-80% improvement in the low back and bilateral lower extremity pain. The patient reports there he has been getting up and down from his chair with much greater ease and comfort than traveling a bit easier and sleeping better at night. The patient reports the pain is a 6 on a scale of 10 at all times, average, worst and least over the past week, but again the left radiation to the lower extremities, still some pain in the low back itself. The patient reports no new motor or sensory deficits. Reports it does not awaken him from sleep at night, sleeps about 8 hours at a time without significant difficulty. The patient reports no new deficits. No bowel or bladder incontinence or other complaints. PHYSICAL EXAMINATION: VITAL SIGNS: The patient's blood pressure 76/42, pulse 71, respirations 18, temperature 98.9 degrees Fahrenheit, height is 5 feet 7 inches, weighs 150 pounds. The patient's recheck blood pressure was 109/79. GENERAL: The patient is awake, alert, oriented, appropriate, very pleasant demeanor. HEENT: Shows normocephalic, atraumatic. The patient is wearing eyeglasses. Extraocular movements are intact and symmetrical. Oral cavity: Mucous membranes moist and pink. NECK: Shows anterior throat supple. Swallow reflex symmetrical. CHEST: Shows normal with inspection. Breath sounds are coarse, but clear bilaterally without any rales, rhonchi, or wheezes. ABDOMEN: The patient's abdomen shows a feeding tube in place as per previous. No significant distention or organomegaly palpated. BACK: The patient's back shows spine grossly in the midline, slightly exaggerated thoracic kyphosis and minor flattening of lumbar lordotic curvature. Lumbar paraspinous muscle shows symmetrical on inspection, with palpation shows some moderate tenderness diffusely bilaterally, but only diffusely without significant radiation. EXTREMITIES: The patient's lower extremities show deep tendon reflexes at 1+ ____. Motor exam is approximately 4 on a scale of 5, but symmetrical with dorsiflexion, extension, quadriceps, and hamstring flexion equal bilaterally. Peripheral pulses are 1+ posterior tibia. No peripheral edema is noted. Options were discussed with the patient. The patient's old chart was reviewed as his current medication regimen updated. Current review of systems updated today as well. We will proceed with a second lumbar epidural steroid injection today with fluoroscopic guidance. Risks were again discussed including, but not limited to bleeding, infection, possibility of epidural hematoma, subsequent neurological compromise, dural puncture, headaches, spinal cord and/or nerve damage, side effects of steroid medication and poor results regarding pain control. The patient understands and wished to proceed. The patient will return to the clinic in approximately 2 weeks for followup. He was counseled on return appointment, activity level and side effects to be aware of. DIAGNOSIS: Lumbar radiculopathy with lumbar degenerative disk disease and lumbar spinal stenosis. PROCEDURE: Lumbar epidural steroid injection with translaminar approach at the L5-S1 level using C-arm fluoroscopic guidance under sterile prep and drape using local anesthetic. MEDICATION INJECTED: The patient received a total of 120 mg of Depo-Medrol plus 10 mL of preservative-free normal saline and 2 mL of contrast. CONDITION AT DISCHARGE: Stable. The patient tolerated procedure well and had no complications. BRIANNA CASTILLO MD DR: KOLBY/kirsten JOB#: [id number] / [id number]
== END ==
LOC: PNCL 10:04
PROVIDERS: ATTEND Anesthesiology
DX: M51.16 Intervertebral disc disorders with radiculopathy, lumbar region (principal); M48.061 Spinal stenosis, lumbar region without neurogenic claudication; M54.5 Low back pain
CPT/HCPCS: 62323; J1030; J1040; Q9965

== ENCOUNTER 2019-08-17 17:39 | Inpatient (IN) | payer MEDICARE, BC ==
[~2019-08-17] VITALS: Ht 170.2 cm; Wt 73.0 kg
[2019-08-17 16:35] VITALS: BP 168/66
[~2019-08-17 17:39] MED LIST changes: -IOHEXOL 180 MG/ML 10 ML VIAL. ONE; -methylPREDNISolone ACETATE 40 MG/ML VIAL. ONE; -methylPREDNISolone ACETATE 80 MG/ML VIAL. ONE
[2019-08-17 19:00] VITALS: BP 137/62
[2019-08-17] MEDS ORDERED: CITA40TA12 PO (21:18)
[2019-08-17] MEDS ORDERED: HYDR-2868 PO (21:18)
[2019-08-17] MEDS ORDERED: PIP/TAZO PER PHARMACY MC PRN (21:45)
[2019-08-17] MEDS ORDERED: OLANZapine 5 MG TABLET PO SCH ×2 (22:00)
[2019-08-17] MEDS: HYDROcodone/APAP 5/325MG 1 TAB TABLET PO PRN (22:30)
[2019-08-17] MEDS: OLANZapine 2.5 MG TABLET PO SCH (22:30)
[2019-08-17] MEDS: POLYETHYLENE GLYCOL 3350 17 GM PACKET. PO SCH (22:30)
[2019-08-17] MEDS: ATORVASTATIN CALCIUM 20 MG TABLET PO SCH (22:30)
[2019-08-17] MEDS: hydrALAZINE 25 MG TABLET PO SCH (22:31)
[2019-08-17 23:00] VITALS: BP 140/75
[2019-08-18] VITALS (7 sets, daily range): BP systolic 94–144; BP diastolic 37–75
[2019-08-18] MEDS ORDERED: PIPERACILLIN/TAZOBACTAM 3.375 GM in IV NORMAL SALINE 50ML 50 ML IV ONE ×2
[2019-08-18] MEDS: PIPERACILLIN/TAZOBACTAM 3.375 GM in IV NORMAL SALINE 50ML 50 ML IV SCH ×4 (06:37→23:58)
[2019-08-18] MEDS ORDERED: PANTOPRAZOLE 40 MG TABLET.DR. PO SCH (07:30)
--- NOTE | 2019-08-18 07:52 | PDOC2 ---
CONSULT Date of Consult Date of Consult DATE: 08/18/19 TIME: 07:52 Source Source: Chart review History of Present Illness Reason for Visit: 74 year old man with history of COPD and lumbar spinal stenosis, admitted with aspiration pneumonia and ankle fracture. He reports that he tripped over his oxygen tubing at home on the stairs on 08/15/19 and landed on his ankle. He admits to using a cane sometimes. I asked how he was feeling and he said "terrible" but his main complaint was that the returning officer patches feel too heavy. Past Medical History Past Medical History long hx COPD HTN hyperlipidemia GERD osteoarthritis Cardiovascular: CAD, HTN, Hyperlipidemia, Other Pulmonary: COPD, Pneumonia, Other CENTRAL NERVOUS SYSTEM: Dementia, Other GI: GERD, Other Heme/Onc: Anemia NOS, Cancer Hepatobiliary: Cholelithiasis Psych: Anxiety, Addictions, Depression, Other Musculoskeletal: Osteoarthritis Renal/: No pertinent hx Past Surgical History Past Surgical History: Other Family History Family History Alcohol Abuse, High Cholesterol, Hypertension Family History: Alcohol Abuse, High Cholestrol, Hypertension Social History Social History Smoke: Quit ALCOHOL: none Drugs: None, Other (remote alcohol abuse, 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 ALCOHOL: none Drugs: None Current Medications Current Medications Current Medications Aspirin (Ecotrin) 81 mg QODAY PO ; Start 08/19/19 at 09:00 Atorvastatin Calcium (Lipitor) 20 mg HS PO Last administered on 08/17/19at 22:30; Start 08/17/19 at 22:00 Hydralazine HCl (Apresoline) 25 mg TID PO Last administered on 08/17/19at 22:31; Start 08/17/19 at 22:00 Olanzapine (ZyPREXA) 2.5 mg QHS PO ; Start 08/17/19 at 22:00; Stop 08/17/19 at 21:48; Status DC Olanzapine (ZyPREXA) 5 mg DAILY PO ; Start 08/18/19 at 09:00 Pantoprazole Sodium (Protonix) 40 mg DAILYAC PO ; Start 08/18/19 at 07:30 Polyethylene Glycol (miraLAX PACKET) 17 gm BID PO Last administered on 08/17/19at 22:30; Start 08/17/19 at 22:00 Citalopram Hydrobromide (CeleXA) 40 mg DAILY PO ; Start 08/18/19 at 09:00 Lubiprostone (Amitiza) 24 mcg BIDWMEALS PO ; Start 08/18/19 at 08:00 Albuterol/ Ipratropium (Duoneb) 3 ml RTQID NEB ; Start 08/18/19 at 08:00 Levofloxacin/ Dextrose 150 ml @ 100 mls/hr Q48H IV ; Start 08/19/19 at 11:00 Piperacillin Sod/ Tazobactam Sod 3.375 gm/Sodium Chloride 50 ml @ 100 mls/hr 1X ONCE IV Last administered on 08/18/19at 01:14; Start 08/18/19 at 00:00; Stop 08/18/19 at 00:29; Status DC Acetaminophen/ Hydrocodone Bitart (Lortab 5/325) 1 tab PRN Q4HRS PRN PO MODERATE PAIN 4-6 Last administered on 08/17/19at 22:30; Start 08/17/19 at 21:30 Piperacillin Sod/ Tazobactam Sod (Zosyn Per Pharmacy) 1 each PRN DAILY PRN MC SEE COMMENTS; Start 08/17/19 at 21:45 Olanzapine (ZyPREXA) 2.5 mg QHS PO ; Start 08/17/19 at 22:00; Status UNV Olanzapine (ZyPREXA) 2.5 mg QHS PO Last administered on 08/17/19at 22:30; Start 08/17/19 at 22:00 Piperacillin Sod/ Tazobactam Sod 3.375 gm/Sodium Chloride 50 ml @ 100 mls/hr Q6HRS IV Last administered on 08/18/19at 06:37; Start 08/18/19 at 06:00 Active Scripts Active Reported Hydralazine Hcl 25 Mg Tablet 25 Mg PO TID Celexa (Citalopram Hydrobromide) 40 Mg Tablet 40 Mg PO DAILY Miralax (Polyethylene Glycol 3350) 17 Gm Powd.pack 1 Pkt PO BID Pantoprazole Sodium (Pantoprazole Sodium) 40 Mg Tablet. 40 Mg PO DAILYAC Olanzapine 5 Mg Tablet 2.5 Mg PO DAILY Olanzapine 5 Mg Tablet 5 Mg PO DAILY Linzess (Linaclotide) 145 Mcg Capsule 145 Mcg PO DAILY07 Atorvastatin Calcium 20 Mg Tablet 20 Mg PO HS PRN Aspirin Ec (Aspirin) 81 Mg Tablet. 81 Mg PO QODAY Allergies Allergies: Coded Allergies: amlodipine (Verified Allergy, Intermediate, 12/21/18) risperidone (Verified Allergy, Intermediate, 12/21/18) ROS Respiratory: YES: Shortness of breath Musculoskeletal: Yes Gait Disturbance Physical Exam General: Alert, Cooperative HEENT: Atraumatic, Other (appears edentulous) Lungs: Other (on O2 NC, appears slightly SOB but not cyanotic) Heart: Regular rate Abdomen: Other (PEG tube) Extremities: Other (I loosened the left ankle splint to observe the ankle. He reports slightly decreased light touch sensation in the left foot although this might be due to the swelling. The ankle is slightly swollen diffusely, but there is no malalignment. There is a large bulla (blister) over the lateral ankle, almost directly over the lateral malleolus, approximately 3 cm in length and 2 cm in width, mostly serous fluid, to slightly bloody. The ankle is tender at the fracture site as expected. There is no ecchymosis medially and no swelling or tenderness over the deltoid ligament or any other evidence of deltoid ligament sprain. Pulses are faint. Capillary refill is normal. He reports slightly decreased light touch sensation in the left foot only, I presume this is due to the swelling although he has a history of left-sided sciatica, and there may be multiple factors causing a slight decrease in sensation. I don't see any evidence of compartment syndrome. He is able to dorsiflex and plantarflex the toes without difficulty.) Skin: Other (Large blister lateral ankle. No open fracture however) Neuro: Other (Decreased but present light touch sensation left foot. Persistent right hand tremor.) Psych/Mental Status: Mood NL MUSCULOSKELETAL: Abnormal exam of right (hand--Heberden's nodes consistent with osteoarthritis, and a tremor.), Abnormal exam of left (ankle as above.) Vitals VITALS Vital Signs Date Time Temp Pulse Resp B/P (MAP) Pulse Ox O2 Delivery O2 Flow Rate FiO2 08/18/19 03:03 97.6 68 20 109/53 (71) 95 Nasal Cannula 97.6 08/17/19 22:30 2.0 Images Images Report reviewed, images independently reviewed. The medial clear space appears normally aligned and the fracture is nondisplaced. I don't believe stress views are necessary. [address] [id number] IMAGING REPORT Signed PATIENT: JUANA BARBER ACCOUNT: [id number] : 1945 LOCATION: ER AGE: 74 SEX: M EXAM STATUS: REG ER ORD. PHYSICIAN: VENECIA CHI MD REASON: cp PROCEDURE: ANKLE LEFT 3V ANKLE LEFT 3V 08/16/2019 1:48 PM INDICATION: Chest pain COMPARISON: None available. TECHNIQUE: 3 views of the left ankle are provided. FINDINGS/ IMPRESSION: 1. There is a spiral fracture of the distal fibular diaphysis extending into the lateral malleolus. There is suggestion of intra-articular extension. However, ankle mortise does appear congruent. Stress views may be of benefit. Adjacent soft tissue hematoma is suspected along the lateral malleolus. 2. Diffuse subcutaneous edema noted in the lower extremity. Talus and calcaneus are intact. Electronically signed by: Rosa Ramírez MD (08/16/2019 2:51 PM) [id number] Assessment/Plan Assessment/Plan Closed nondisplaced left lateral malleolus fracture. There is a large bulla (fracture blister) over the lateral malleolus which is a contraindication to any immediate surgery, but fortunately no surgery is needed due to the good alignment. I will recommend a CAM Walker, and also a wound care evaluation, and he will need some extra padding and dressings under the Cam Walker to treat the fracture blister. He can weight-bear as tolerated in the Cam Walker. ADRIA CORDON MD Aug 18, 2019 07:52
[2019-08-18] MEDS ORDERED: LUBIPROSTONE 24 MCG CAPSULE PO SCH (08:00)
[2019-08-18] MEDS: IPRATRPIUM/ALBUTEROL 0.5/2.5MG 3 ML NEBU. NEB SCH ×4 (08:44→21:07)
[2019-08-18] MEDS: POLYETHYLENE GLYCOL 3350 17 GM PACKET. PO SCH ×2 (08:53→20:49)
[2019-08-18] MEDS: hydrALAZINE 25 MG TABLET PO SCH ×3 (08:54→20:50)
[2019-08-18] MEDS: CITALOPRAM 20 MG TABLET. PO SCH (08:54)
[2019-08-18] MEDS: OLANZapine 5 MG TABLET PO SCH (10:26)
[2019-08-18] MEDS: HYDROcodone/APAP 5/325MG 1 TAB TABLET PO PRN (10:26)
[2019-08-18] MEDS: LINACLOTIDE PO SCH (10:26)
[2019-08-18] MEDS: LANSOPRAZOLE 30 MG TAB.RAP.DR FT SCH (10:26)
--- NOTE | 2019-08-18 11:15 | PN ---
DATE: 08/18/2019 SUBJECTIVE: The patient is a 74-year-old male patient who was transferred yesterday from [facility] as he tripped and sustained left ankle fracture. He also was found to have urinary tract infection and possible aspiration. He was started on IV antibiotic in the form of Zosyn and Levaquin and was transferred to [facility] to consult the orthopedic surgeon to see if he requires any surgical intervention. When I saw him this morning, he was resting, flat in bed, in no apparent respiratory distress. On questioning him, he complained of chest pain as he does not want to telemetry leads on his chest and abdomen, but denied any other complaint. PHYSICAL EXAMINATION: GENERAL: When I examined him, he looked somewhat pale, but no jaundice, cyanosis or thyromegaly. No jugular venous distention. No limb edema. VITAL SIGNS: His heart rate was 76, blood pressure was 144/75, temperature was 98.2, respiratory rate was 18 and oxygen saturation was 93% on 2 liters of oxygen. HEAD, EYES, EARS, NOSE AND THROAT: Showed normocephalic, atraumatic. NECK: Supple. HEART: Showed normal first and second heart sounds. No gallop or murmur. CHEST: Clear to auscultation. No crepitation or rhonchi. ABDOMEN: Distended, soft with gastrostomy tube in place. There is no tenderness. No guarding or rigidity. No organomegaly. All hernial orifices intact. Bowel sounds normal. NEUROLOGIC: He is awake, alert, responding appropriately. All cranial nerves are intact. He moves his upper extremities without difficulty. His left foot is in a splint with a large blister on the outer aspect of the left ankle joint. LABORATORY DATA: He has no lab work done today. He apparently was seen by Orthopedic surgeon, who did not recommend any surgical intervention as he has a large bulla, fracture blister over the lateral malleolus, which is a contraindication to any immediate surgery; however, no surgery is needed due to the good alignment and he recommended Cam boot walker as well as the wound care consult with he will need some extra padding and dressing under the Cam walker to treat the fracture blister and he can weightbear as tolerated in the Cam walker. PLAN: Obviously to continue with his IV antibiotic for urinary tract infection. Continue with pain management and we will wait for the culture and sensitivity and once that becomes available, we will deescalate antibiotic and obviously the patient can be discharged home when the cultures become available. GERARD ANTHONY MD DR: IFTIKHAR/kirsten JOB#: [id number] / [id number]
--- NOTE | 2019-08-18 11:29 | HP ---
ADMIT DATE: 08/18/2019 HISTORY OF PRESENT ILLNESS: The patient is a 74-year-old male patient who was transferred to [facility] on account of fractured left ankle joint. He apparently tripped on his oxygen tubing landing on his left ankle joint. He had had an x-ray of his left ankle joint, which showed that there is a spiral fracture of the distal fibular diaphysis extending into the lateral malleolus. There is suggestion of intra-articular extension; however, the ankle mortise does appear congruent. Stress views may be of benefit. Adjacent soft tissue hematoma is suspected along the lateral malleolus. Diffuse subcutaneous edema noted to the lower extremities. Talus and calcaneus are intact. He apparently therefore was evaluated in the Emergency Room and was found to have a urinary tract infection and was started on IV antibiotic. Apparently, his stated she witnessed him to aspirate the morning of admission ____ drinks his coffee, that he is not supposed to do, as he is not supposed to have anything by mouth given he has tongue cancer and also esophageal stricture. In any case, he was admitted to [facility] where he was treated with IV antibiotic in the form of piperacillin/tazobactam 3.375 g together with levofloxacin. His left ankle joint was put in a splint and was transferred to [facility] to continue with IV antibiotic and to consult the orthopedic surgeon. PAST MEDICAL HISTORY: Significant for Mooney palsy, severe dementia, hypercholesterolemia, chronic obstructive pulmonary disease, Pastrana esophagus, and irritable bowel syndrome. He had also dysphagia for which has a Brody-Mckinney button feeding tube placement. He also had carcinoma of the tongue, treated with surgery and radiation treatment. PAST SURGICAL HISTORY: Significant for tongue resection. He has also had Brody-Mckinney button tube feeding placement. PAST PSYCHIATRIC HISTORY: Significant for bipolar disorder, panic disorder, obsessive compulsive disorder, depression, and apparently was admitted [facility] inpatient [facility] stabilization in December of this year. ALLERGIES: He is allergic to AMLODIPINE and RISPERIDONE. SOCIAL HISTORY: The patient denies smoking, alcohol, or drug use. He is a full code. He lives at home with his . FAMILY HISTORY: Noncontributory. MEDICATIONS: He is currently on the following medications: He is on ipratropium bromide, albuterol sulfate 3 mL by nebulizer 4 times a day, atorvastatin 20 mg at bedtime, aspirin 81 mg once a day, escitalopram oxalate 20 mg daily, olanzapine 5 mg per feeding tube daily, olanzapine 0.5 mg at bedtime, polyethylene glycol 17 g twice a day with meals, Protonix 40 mg once a day, and linaclotide or Linzess 145 mcg capsule half a tablet daily for constipation. PHYSICAL EXAMINATION: GENERAL: On arrival to [facility], he looked well and was clearly in no apparent respiratory distress, slightly pale, but no jaundice, cyanosis, or thyromegaly. No jugular venous distention. No lower limb edema. VITAL SIGNS: His heart rate was 95, blood pressure was 168/66, temperature was 101.2, respiratory rate was 20, and oxygen saturation was 93% on 2 L of oxygen. HEAD, EYES, EARS, NOSE, AND THROAT: Showed normocephalic, atraumatic. NECK: Supple. HEART: Showed normal first and second heart sounds. No gallop, rub, or murmur. CHEST: Showed central trachea, equal bilateral expansion, air entry, vesicular sounds. No crepitation or rhonchi. ABDOMEN: Distended, soft with gastrostomy tube in place. There is no tenderness. No guarding or rigidity. No organomegaly. All hernial orifices intact. Bowel sounds normal. NEUROLOGIC: He was awake, alert, and responding appropriately. All cranial nerves are intact. EXTREMITIES: He moves all extremities without difficulty. His left foot is in a splint with a blister on the outer aspect of the left ankle joint. LABORATORY DATA: Showed that his white cell count was 14,100, hemoglobin 13.6, hematocrit 42, MCV 95, and platelet count of [id number] with normal manual differential. His chemistry showed a serum sodium 142, potassium 3.9, chloride 103, bicarbonate 25, anion gap of 14, BUN 41, creatinine was 1.9, estimated GFR was 35 mL per minute, and his glucose was 109. Lactic acid on admission to [facility] was 4.3 and yesterday was 1.9. His calcium was 10.1. Total bilirubin, AST, ALT, and alkaline phosphatase were normal. Total beta natriuretic peptide was 4094. Total protein was 8.7, albumin was 4.2, and lipase was 125. His urinalysis showed the urine was yellow, cloudy with a pH of 6, specific gravity 1.015. There was large amount of protein, negative for glucose, trace of ketones, trace of blood. The urine was positive for nitrite. There was moderate amount of leukocyte esterase, 1-2 rbc's, too numerous to count wbc's, and too many bacteria. His chest x-ray showed that the cardiomediastinal silhouette is similar in appearance, centrilobular pulmonary emphysema is present, mild interstitial changes at the lung bases. He has chronic airspace consolidation. There are no significant pleural effusions. There is no pulmonary, vascular congestion, or pneumothorax. IMPRESSION: The patient has chronic obstructive pulmonary disease changes without acute cardiopulmonary process. X-ray of his ankle joint showed that there is a spiral fracture of the distal fibular diaphysis extending into the lateral malleolus. There is suggestion of intra-articular extension; however, the ankle mortise appears congruent. Stress images may be of benefit. Adjacent soft tissue hematoma is suspected along the lateral malleolus. Diffuse subcutaneous edema noted in the lower extremities. Talus and calcaneus are intact. His CT scan of the abdomen and pelvis showed that there is no free air, free fluid, or fluid collection. The lower part of the chest showed the right greater than the left basilar subpleural opacities similar to prior exam and coronary artery disease. The liver is homogeneous in attenuation, gallbladder and biliary cholelithiasis including prominent gallstone again in the gallbladder neck. Normal common bile duct. Spleen is normal in size. Pancreas noncontrast, the pancreas is homogeneous in attenuation without any peripancreatic inflammatory changes, adrenal gland stable, left adrenal thickening. Kidneys and ureters: No big urinary calculi, normal kidneys and ureters. The patient has a percutaneous gastrostomy tube in place. Normal-caliber small bowel, large colonic stool burden with fatty attenuation stool similar to prior exam. The appendix is not seen. Vascular structures are diffuse aortoiliac atherosclerotic disease. No lymphadenopathy in the abdomen or pelvis. The patient has normal bladder, normal prostate gland and seminal vesicle skeletal structures and soft tissues unchanged as he has chronic L2 compression deformity with osseous retropulsion degenerative change of the spine. ASSESSMENT AND PLAN: The patient will be continued on IV antibiotic. Continue with pain management. We will consult the orthopedic surgeon regarding his left ankle fracture and we will decide on further management accordingly. He has had blood cultures done at [facility], which is still pending at the time of this dictation. We will follow that closely and we will adjust his medication accordingly. GERARD ANTHONY MD DR: IFTIKHAR/kirsten JOB#: [id number] / [id number]
[2019-08-18] MEDS: ENOXAPARIN 40 MG/0.4 ML SYRINGE. SQ SCH (16:45)
[2019-08-18] MEDS: ATORVASTATIN CALCIUM 20 MG TABLET PO SCH (20:49)
[2019-08-18] MEDS: OLANZapine 2.5 MG TABLET PO SCH (20:49)
[2019-08-19 02:37] VITALS: BP 122/62
[2019-08-19] MEDS: PIPERACILLIN/TAZOBACTAM 3.375 GM in IV NORMAL SALINE 50ML 50 ML IV SCH ×3 (05:04→17:08)
[2019-08-19] MEDS: HYDROcodone/APAP 5/325MG 1 TAB TABLET PO PRN ×3 (06:00→23:01)
[2019-08-19 07:00] VITALS: BP 118/58
[2019-08-19] MEDS: IPRATRPIUM/ALBUTEROL 0.5/2.5MG 3 ML NEBU. NEB SCH ×4 (07:47→19:41)
[2019-08-19 07:57] LABS: BASO % 1 % (0-3); EOS # 0.2 x10^3/uL (0.0-0.7); EOS % 3 % (0-3); HEMATOCRIT 31.5 % (39.0-53.0); HEMOGLOBIN 10.6 g/dL (13.0-17.5); LYMPH # 0.7 x10^3/uL (1.0-4.8); LYMPH % 9 % (24-48); MEAN CORPUSCULAR HEMOGLOBIN 31 pg (25-35); MEAN CORPUSCULAR HGB CONC 34 g/dL (31-37); MEAN CORPUSCULAR VOLUME 94 fL (79-100); MONO # 0.8 x10^3/uL (0.0-1.1); MONO % 11 % (0-9); NEUT # 5.8 x10^3/uL (1.8-7.7); NEUT % 77 % (31-73); PLATELET COUNT 149 x10^3/uL (140-400); RED BLOOD COUNT 3.36 x10^6/uL (4.30-5.70); RED CELL DISTRIBUTION WIDTH 15.5 % (11.5-14.5); WHITE BLOOD COUNT 7.5 x10^3/uL (4.0-11.0)
[2019-08-19 08:15] LABS: ALBUMIN 2.6 g/dL (3.4-5.0); ALBUMIN/GLOBULIN RATIO 0.7 (1.0-1.7); CALCIUM 8.4 mg/dL (8.5-10.1); CREATININE 1.3 mg/dL (0.7-1.3); GFR 54.1; POTASSIUM 4.1 mmol/L (3.5-5.1); TOTAL BILIRUBIN 0.9 mg/dL (0.2-1.0); TOTAL PROTEIN 6.3 g/dL (6.4-8.2)
[2019-08-19] MEDS: ASPIRIN ENTERIC COATED 81 MG TABLET.DR. PO SCH (08:18)
[2019-08-19] MEDS: hydrALAZINE 25 MG TABLET PO SCH ×3 (08:18→20:59)
[2019-08-19] MEDS: LANSOPRAZOLE 30 MG TAB.RAP.DR FT SCH (08:18)
[2019-08-19] MEDS: CITALOPRAM 20 MG TABLET. PO SCH (08:18)
[2019-08-19] MEDS: OLANZapine 5 MG TABLET PO SCH (08:18)
[2019-08-19] MEDS: POLYETHYLENE GLYCOL 3350 17 GM PACKET. PO SCH ×2 (08:18→20:59)
[2019-08-19] MEDS: LINACLOTIDE PO SCH (08:19)
[2019-08-19] MEDS ORDERED: BISACODYL 10 MG SUPP.RECT. PR PRN (10:45)
--- NOTE | 2019-08-19 10:59 | PN ---
DATE: 08/19/2019 SUBJECTIVE: The patient is resting flat, sleeping comfortably, in no apparent distress. He continued to have pain in his left ankle joint. We are waiting for the Cam boot from the Pst Manager so that he can start walking as he is weightbearing as tolerated according to the orthopedic surgeon. Meanwhile, we will continue with IV antibiotic for his UTI, Lovenox for DVT prophylaxis and lansoprazole for his Pastrana's esophagus. He also complained of constipation. PHYSICAL EXAMINATION: GENERAL: When I examined him this morning, he looked well and was clearly in no apparent respiratory distress, pale, but no jaundice, cyanosis or thyromegaly. No jugular venous distension. No lower limb edema. VITAL SIGNS: His heart rate was 70, blood pressure was 118/58, temperature was 98.4, respiratory rate 20, and oxygen saturation was 95% on 2 liters of oxygen. HEAD, EYES, EARS, NOSE AND THROAT: Showed normocephalic, atraumatic. NECK: Supple. HEART: Showed normal first and second heart sounds. No gallop or murmur. CHEST: Clear to auscultation. No crepitation or rhonchi. ABDOMEN: Distended, soft, nontender. NEUROLOGIC: He was awake, alert, responding appropriately. All cranial nerves are intact. He moves extremities without difficulty. He obviously is able to ambulate; however, he was awaiting for the Cam boot before he starts moving around. LABORATORY DATA: His lab work this morning showed a serum sodium 139, potassium 4.1, chloride 104, bicarbonate 27, anion gap of 8, BUN 25, creatinine 1.3, estimated GFR was 54 mL per minute, glucose was 87, calcium was 8.4. Total bilirubin, AST, ALT, alkaline phosphatase were normal. Total protein 6.3, albumin was 2.6. White cell count was 7500, hemoglobin 10.6, hematocrit 31, MCV 94 and platelet count of 149,000. ASSESSMENT: 1. Fracture of the left ankle joint, currently in a splint. Awaiting the Cam boot. 2. Urinary tract infection for which he continues to be on IV antibiotic. 3. Constipation for which he has been using MiraLax. I will add mag citrate as well as Dulcolax suppository. Meanwhile, we will continue also with nutritional support through gastrostomy tube. GERARD ANTHONY MD DR: Humberto JOB#: [id number] / [id number]
[2019-08-19 11:00] VITALS: BP 114/54
[2019-08-19] MEDS ORDERED: MAGNESIUM CITRATE 296 ML SOLUTION. PO ONE (11:00)
--- NOTE | 2019-08-19 14:33 | NUR ---
SW following for discharge planning. Chart reviewed, discussed with RN, pt waiting on a cam boot before being able to get up and walk. Pt from home with , has maurizio button for feeding. SW will continue to follow for discharge planning needs.
--- NOTE | 2019-08-19 14:45 | NUR ---
wound care patient seen per wound care consult. patients left leg is wrapped at this time, patient awaiting a CAM walker boot, did not removed dressing. wound care will f/u tomorrow to evaluate the left leg after the patient has the CAM walker boot. patient assessed from head to toe and no other wounds noted at this time. patient was incontinent of urine, brief was changed, patient had a condom catheter on, but this was not on/intact when brief was removed to change. notified FLORIN Cooney about the POC and wound care will f/u tomorrow 08/20/2019
[2019-08-19 15:00] VITALS: BP 107/51
[2019-08-19] MEDS: ENOXAPARIN 40 MG/0.4 ML SYRINGE. SQ SCH (15:06)
[2019-08-19 19:00] VITALS: BP 146/73
[2019-08-19] MEDS: OLANZapine 2.5 MG TABLET PO SCH (20:59)
[2019-08-19] MEDS: ATORVASTATIN CALCIUM 20 MG TABLET PO SCH (20:59)
[2019-08-19 23:00] VITALS: BP 141/46
[2019-08-20] VITALS (7 sets, daily range): BP systolic 106–172; BP diastolic 54–144
[2019-08-20] MEDS: PIPERACILLIN/TAZOBACTAM 3.375 GM in IV NORMAL SALINE 50ML 50 ML IV SCH ×4 (00:10→17:34)
[2019-08-20] MEDS: IPRATRPIUM/ALBUTEROL 0.5/2.5MG 3 ML NEBU. NEB SCH ×4 (07:07→19:23)
[2019-08-20] MEDS: LINACLOTIDE PO SCH (07:27)
[2019-08-20] MEDS: LANSOPRAZOLE 30 MG TAB.RAP.DR FT SCH (07:27)
[2019-08-20] MEDS: CITALOPRAM 20 MG TABLET. PO SCH (08:34)
[2019-08-20] MEDS: OLANZapine 5 MG TABLET PO SCH (08:34)
[2019-08-20] MEDS: POLYETHYLENE GLYCOL 3350 17 GM PACKET. PO SCH ×2 (08:34→21:17)
[2019-08-20] MEDS: hydrALAZINE 25 MG TABLET PO SCH ×3 (08:34→21:17)
--- NOTE | 2019-08-20 09:27 | PN ---
DATE: 08/20/2019 SUBJECTIVE: The patient is resting flat, comfortably in bed, no apparent distress. He continued to complain of constipation; however, is refusing to get out of the bed. He got his Cam boot yesterday, so I explained to the patient that the orthopedic surgeon stated that he can put on weight and walk as tolerated and that without him moving, even his bowels will not move. PHYSICAL EXAMINATION: GENERAL: When I examined him, he looked pale, cachectic, but no jaundice, cyanosis or thyromegaly. No jugular venous distension. No lower limb edema. VITAL SIGNS: His heart rate was 84, blood pressure 143/70, temperature was 98, respiratory rate was 16, and oxygen saturation was 97% on 2 liters of oxygen. HEAD, EYES, EARS, NOSE AND THROAT: Showed normocephalic, atraumatic. NECK: Supple. HEART: Showed normal first and second heart sounds with no gallop or murmur. CHEST: Clear to auscultation. No crepitation or rhonchi. ABDOMEN: Distended, soft with gastrostomy tube in place. No tenderness. No guarding or rigidity. No organomegaly. All hernial orifice intact. Bowel sounds normal. NEUROLOGIC: He was awake, alert, responding appropriately. All cranial nerves are intact. He moves his extremities without difficulty, though is mostly bedbound. His intake was 2050, output was 950. ASSESSMENT: 1. Fracture of the left ankle joint, currently was in a splint and he now has his Cam boot. According to Dr. Posey, the patient is weightbearing as tolerated. 2. Urinary tract infection with growth of more than 100,000 colony forming units per mL of gram-negative rods, identification and sensitivity is still pending. 3. Constipation for which he is on MiraLax. We added Dulcolax suppositories as well as mag citrate. Other medical problems include dysphagia. He has a gastrostomy tube. 4. Chronic obstructive pulmonary disease. 5. Carcinoma of the tongue, treated with surgery and radiation treatment. GERARD ANTHONY MD DR: IFTIKHAR/kirsten JOB#: [id number] / [id number]
--- NOTE | 2019-08-20 15:59 | NUR ---
Wound Care: Wound care follow up on consult for blisters to left ankle. Left proximal ankle noted with an intact blister and left distal ankle with open blister, both wounds cleansed with wound wash and covered with xerform and foam. No other wounds noted upon assessment. Wound care will follow up on 08/27/19.
--- NOTE | 2019-08-20 16:07 | NUR ---
SW following pt. Pt wants to go to [place] for SNU. SW phoned and faxed referral to [place] x2. Acceptance pending. Pt wants to use [facility] when he finishes rehab and reported he is still with [facility] for his tube feeding needs. Discussed with RN. SW will continue to follow.
[2019-08-20] MEDS: ENOXAPARIN 40 MG/0.4 ML SYRINGE. SQ SCH (17:34)
[2019-08-20] MEDS: ATORVASTATIN CALCIUM 20 MG TABLET PO SCH (21:16)
[2019-08-20] MEDS: OLANZapine 2.5 MG TABLET PO SCH (21:17)
[2019-08-20] MEDS: HYDROcodone/APAP 5/325MG 1 TAB TABLET PO PRN (21:17)
[2019-08-21] MEDS: PIPERACILLIN/TAZOBACTAM 3.375 GM in IV NORMAL SALINE 50ML 50 ML IV SCH ×3 (00:25→14:25)
[2019-08-21 03:00] VITALS: BP 133/69
[2019-08-21 04:07] LABS: BASO % 1 % (0-3); EOS # 0.2 x10^3/uL (0.0-0.7); EOS % 4 % (0-3); HEMATOCRIT 31.3 % (39.0-53.0); HEMOGLOBIN 10.5 g/dL (13.0-17.5); LYMPH # 0.7 x10^3/uL (1.0-4.8); LYMPH % 11 % (24-48); MEAN CORPUSCULAR HEMOGLOBIN 32 pg (25-35); MEAN CORPUSCULAR HGB CONC 34 g/dL (31-37); MEAN CORPUSCULAR VOLUME 94 fL (79-100); MONO # 0.7 x10^3/uL (0.0-1.1); MONO % 11 % (0-9); NEUT # 4.9 x10^3/uL (1.8-7.7); NEUT % 74 % (31-73); PLATELET COUNT 160 x10^3/uL (140-400); RED BLOOD COUNT 3.33 x10^6/uL (4.30-5.70); RED CELL DISTRIBUTION WIDTH 15.6 % (11.5-14.5); WHITE BLOOD COUNT 6.6 x10^3/uL (4.0-11.0)
[2019-08-21 04:25] LABS: ALBUMIN 2.5 g/dL (3.4-5.0); ALBUMIN/GLOBULIN RATIO 0.6 (1.0-1.7); CALCIUM 8.7 mg/dL (8.5-10.1); CREATININE 1.4 mg/dL (0.7-1.3); GFR 49.7; POTASSIUM 4.2 mmol/L (3.5-5.1); TOTAL BILIRUBIN 0.7 mg/dL (0.2-1.0); TOTAL PROTEIN 6.5 g/dL (6.4-8.2)
[2019-08-21 07:00] VITALS: BP 144/66
[2019-08-21] MEDS: IPRATRPIUM/ALBUTEROL 0.5/2.5MG 3 ML NEBU. NEB SCH ×3 (07:07→15:46)
[2019-08-21] MEDS: ASPIRIN ENTERIC COATED 81 MG TABLET.DR. PO SCH (08:13)
[2019-08-21] MEDS: LANSOPRAZOLE 30 MG TAB.RAP.DR FT SCH (08:13)
[2019-08-21] MEDS: OLANZapine 5 MG TABLET PO SCH (08:13)
[2019-08-21] MEDS: hydrALAZINE 25 MG TABLET PO SCH ×2 (08:14→15:01)
[2019-08-21] MEDS: CITALOPRAM 20 MG TABLET. PO SCH (08:14)
[2019-08-21] MEDS: POLYETHYLENE GLYCOL 3350 17 GM PACKET. PO SCH (08:15)
[2019-08-21] MEDS: LINACLOTIDE PO SCH (08:15)
--- NOTE | 2019-08-21 08:15 | PDOC ---
ORTHO PROGRESS NOTES Subjective Patient painful this morning with pain rated at 8 out of 10. Procedure Non displaced left ankle fracture. Vitals Vital Signs Date Time Temp Pulse Resp B/P (MAP) Pulse Ox O2 Delivery O2 Flow Rate FiO2 08/21/19 07:07 91 Nasal Cannula 2.0 08/21/19 03:00 98.1 68 18 133/69 (90) 98.1 Labs Laboratory Tests Test 08/21/19 03:50 White Blood Count 6.6 x10^3/uL (4.0-11.0) Red Blood Count 3.33 x10^6/uL (4.30-5.70) Hemoglobin 10.5 g/dL (13.0-17.5) Hematocrit 31.3 % (39.0-53.0) Mean Corpuscular Volume 94 fL (79-100) Mean Corpuscular Hemoglobin 32 pg (25-35) Mean Corpuscular Hemoglobin Concent 34 g/dL (31-37) Red Cell Distribution Width 15.6 % (11.5-14.5) Platelet Count 160 x10^3/uL (140-400) Neutrophils (%) (Auto) 74 % (31-73) Lymphocytes (%) (Auto) 11 % (24-48) Monocytes (%) (Auto) 11 % (0-9) Eosinophils (%) (Auto) 4 % (0-3) Basophils (%) (Auto) 1 % (0-3) Neutrophils # (Auto) 4.9 x10^3/uL (1.8-7.7) Lymphocytes # (Auto) 0.7 x10^3/uL (1.0-4.8) Monocytes # (Auto) 0.7 x10^3/uL (0.0-1.1) Eosinophils # (Auto) 0.2 x10^3/uL (0.0-0.7) Basophils # (Auto) 0.0 x10^3/uL (0.0-0.2) Sodium Level 139 mmol/L (136-145) Potassium Level 4.2 mmol/L (3.5-5.1) Chloride Level 104 mmol/L (98-107) Carbon Dioxide Level 29 mmol/L (21-32) Anion Gap 6 (6-14) Blood Urea Nitrogen 33 mg/dL (8-26) Creatinine 1.4 mg/dL (0.7-1.3) Estimated GFR (Cockcroft-Gault) 49.7 BUN/Creatinine Ratio 24 (6-20) Glucose Level 98 mg/dL (70-99) Calcium Level 8.7 mg/dL (8.5-10.1) Total Bilirubin 0.7 mg/dL (0.2-1.0) Aspartate Amino Transf (AST/SGOT) 22 U/L (15-37) Alanine Aminotransferase (ALT/SGPT) 24 U/L (16-63) Alkaline Phosphatase 49 U/L (46-116) Total Protein 6.5 g/dL (6.4-8.2) Albumin 2.5 g/dL (3.4-5.0) Albumin/Globulin Ratio 0.6 (1.0-1.7) Laboratory Tests Test 08/21/19 03:50 White Blood Count 6.6 x10^3/uL (4.0-11.0) Red Blood Count 3.33 x10^6/uL (4.30-5.70) Hemoglobin 10.5 g/dL (13.0-17.5) Hematocrit 31.3 % (39.0-53.0) Mean Corpuscular Volume 94 fL (79-100) Mean Corpuscular Hemoglobin 32 pg (25-35) Mean Corpuscular Hemoglobin Concent 34 g/dL (31-37) Red Cell Distribution Width 15.6 % (11.5-14.5) Platelet Count 160 x10^3/uL (140-400) Neutrophils (%) (Auto) 74 % (31-73) Lymphocytes (%) (Auto) 11 % (24-48) Monocytes (%) (Auto) 11 % (0-9) Eosinophils (%) (Auto) 4 % (0-3) Basophils (%) (Auto) 1 % (0-3) Neutrophils # (Auto) 4.9 x10^3/uL (1.8-7.7) Lymphocytes # (Auto) 0.7 x10^3/uL (1.0-4.8) Monocytes # (Auto) 0.7 x10^3/uL (0.0-1.1) Eosinophils # (Auto) 0.2 x10^3/uL (0.0-0.7) Basophils # (Auto) 0.0 x10^3/uL (0.0-0.2) Sodium Level 139 mmol/L (136-145) Potassium Level 4.2 mmol/L (3.5-5.1) Chloride Level 104 mmol/L (98-107) Carbon Dioxide Level 29 mmol/L (21-32) Anion Gap 6 (6-14) Blood Urea Nitrogen 33 mg/dL (8-26) Creatinine 1.4 mg/dL (0.7-1.3) Estimated GFR (Cockcroft-Gault) 49.7 BUN/Creatinine Ratio 24 (6-20) Glucose Level 98 mg/dL (70-99) Calcium Level 8.7 mg/dL (8.5-10.1) Total Bilirubin 0.7 mg/dL (0.2-1.0) Aspartate Amino Transf (AST/SGOT) 22 U/L (15-37) Alanine Aminotransferase (ALT/SGPT) 24 U/L (16-63) Alkaline Phosphatase 49 U/L (46-116) Total Protein 6.5 g/dL (6.4-8.2) Albumin 2.5 g/dL (3.4-5.0) Albumin/Globulin Ratio 0.6 (1.0-1.7) Notes awake and alert Assessment and Plan Non displaced Left ankle fracture Cam boot in place and WBAT PT to eval and treat ELIZABETH SLOAN APRN Aug 21, 2019 08:15
[2019-08-21 11:05] VITALS: BP 97/48
--- NOTE | 2019-08-21 11:46 | NUR ---
SW following pt. [facility] declined to take pt. Spoke with pt and pt's Lanny, via phone. Pt chose [facility] Swing bed. Discussed with [employer] at [facility] and pt is accepted. Dr. Méndez aware of plans. Pt agreeable with dc plan.
[2019-08-21] MEDS ORDERED: LEVO750T31 PO (12:46)
[2019-08-21] MEDS ORDERED: ENOX40DI SQ (12:46)
[2019-08-21] MEDS ORDERED: HYDR-2761 PO (12:46)
[2019-08-21] MEDS ORDERED: POLY17PO29 PO (12:46)
[2019-08-21] MEDS ORDERED: DOCU-109 PO (12:46)
--- NOTE | 2019-08-21 12:47 | SNU/HH DC ---
DISCHARGE ORDERS DISCHARGE INFORMATION: DISCHARGE DATE: Aug 21, 2019 FINAL DIAGNOSIS CLOSED LEFT ANKLE FRACTURE UTI DYSPHAGIA CONDITION ON DISCHARGE: Stable CODE STATUS: Code Status: Full PRISON: SNF STAY <30 DAYS: Yes POST DISCHARGE ORDERS: ACTIVITY ORDERS: Resume previous activity DIET AFTER DISCHARGE: TREATMENT/EQUIPMENT ORDERS: RESPIRATORY EQUIPMENT NEEDED: Oxygen Physical Therapy For: Evalulation/Treatment Occupational Therapy For: Evaluation/Treatment DISCHARGE MEDICATIONS: Home Meds Active Scripts Docusate Sodium (COLACE) 100 Mg Capsule, 1 CAP PO BID for CONSTIPATION for 30 Days, #60 CAP 0 Refills Prov:GERARD ANTHONY MD 08/21/19 Polyethylene Glycol 3350 (MIRALAX) 17 Gm Powd.pack, 1 PACKET PO DAILY for constipation for 2 Days, #2 PACKET 0 Refills dissolve in water Prov:GERARD ANTHONY MD 08/21/19 Enoxaparin Sodium (LOVENOX) 40 Mg/0.4 Ml Disp.syrin, 40 MG SQ DAILY for ANTI- COAGULANT for 30 Days, #30 DIS.SYR Prov:GERARD ANTHONY MD 08/21/19 Hydrocodone Bit/Acetaminophen (HYDROCODONE-APAP 5-325 ) 1 Tab Tablet, 1 TAB PO Q4H PRN for PAIN for 30 Days, #180 TAB 0 Refills Prov:GERARD ANTHONY MD 08/21/19 Levofloxacin (LEVAQUIN) 750 Mg Tablet, 1 TAB PO DAILY for UTI for 5 Days, #5 TAB 0 Refills Prov:GERARD ANTHONY MD 08/21/19 Reported Medications Hydralazine Hcl (HYDRALAZINE HCL) 25 Mg Tablet, 25 MG PO TID for HYPERTENSION, TAB 08/17/19 Citalopram Hydrobromide (CELEXA) 40 Mg Tablet, 40 MG PO DAILY for DEPRESSION, TAB 08/17/19 Polyethylene Glycol 3350 (MIRALAX) 17 Gm Powd.pack, 1 PKT PO BID for constipation, PKT 05/07/19 Pantoprazole Sodium (PANTOPRAZOLE SODIUM ) 40 Mg Tablet.dr, 40 MG PO DAILYAC for GERD, TAB 05/07/19 Olanzapine (OLANZAPINE) 5 Mg Tablet, 2.5 MG PO DAILY for mental disorders, TAB 05/07/19 Olanzapine (OLANZAPINE) 5 Mg Tablet, 5 MG PO DAILY for mental disorders, TAB 8/13/19 Linaclotide (LINZESS) 145 Mcg Capsule, 145 MCG PO DAILY07 for irritable bowel, CAP 12/19/18 Atorvastatin Calcium (ATORVASTATIN CALCIUM) 20 Mg Tablet, 20 MG PO HS PRN for cholesterol, #30 TAB 0 Refills 12/19/18 Aspirin (ASPIRIN EC) 81 Mg Tablet., 81 MG PO QODAY for blood, TAB.SR 12/19/18 GERARD ANTHONY MD Aug 21, 2019 12:47
[2019-08-21 13:00] VITALS: BP 123/84
--- NOTE | 2019-08-21 13:24 | NUR ---
SW following pt. JESSICA phoned and faxed orders to [facility]. JESSICA arranged transport via [employer] between [phone]. Pt and pt's notified, provided with Room number at [facility]. Discussed with RN and Packet on chart.
[2019-08-21 14:53] VITALS: BP 126/86
[2019-08-21 15:01] VITALS: BP 126/86
[2019-08-21] MEDS: HYDROcodone/APAP 5/325MG 1 TAB TABLET PO PRN (15:01)
[2019-08-21] MEDS: ENOXAPARIN 40 MG/0.4 ML SYRINGE. SQ SCH (16:00)
--- NOTE | 2019-08-21 16:04 | NUR ---
Pt left unit at approx 1555 by wheelchair via transportation. Pt IV and condom catheter left in place. Pt stable upon discharge.
--- NOTE | 2019-08-21 16:26 | NUR ---
This RN called report to FLORIN Gaines at [facility].
== END 2019-08-21 15:55 | disposition short-term general hospital (02) | DRG 871 ==
LOC: 6 SOUTH 17:39 → 5 SOUTH 08-18 17:59
PROVIDERS: ADMIT Internal Medicine; ATTEND Internal Medicine
DX: A41.9 Sepsis, unspecified organism (principal); E43 Unspecified severe protein-calorie malnutrition; N39.0 Urinary tract infection, site not specified; S82.65XA Nondisplaced fracture of lateral malleolus of left fibula, initial encounter for closed fracture; E78.00 Pure hypercholesterolemia, unspecified; E78.5 Hyperlipidemia, unspecified; F03.90 Unspecified dementia, unspecified severity, without behavioral disturbance, psychotic disturbance, mood disturbance, and anxiety; F31.9 Bipolar disorder, unspecified; F41.0 Panic disorder [episodic paroxysmal anxiety]; F42.9 Obsessive-compulsive disorder, unspecified; I10 Essential (primary) hypertension; I25.10 Atherosclerotic heart disease of native coronary artery without angina pectoris; J44.9 Chronic obstructive pulmonary disease, unspecified; K22.2 Esophageal obstruction; K22.70 Barrett's esophagus without dysplasia; K59.00 Constipation, unspecified; W01.0XXA Fall on same level from slipping, tripping and stumbling without subsequent striking against object, initial encounter; Z82.49 Family history of ischemic heart disease and other diseases of the circulatory system; Z85.810 Personal history of malignant neoplasm of tongue; Z93.1 Gastrostomy status; F41.9 Anxiety disorder, unspecified; G51.0 Bell's palsy; K21.9 Gastro-esophageal reflux disease without esophagitis; M19.90 Unspecified osteoarthritis, unspecified site; Z88.8 Allergy status to other drugs, medicaments and biological substances; Y93.89 Activity, other specified; Y92.89 Other specified places as the place of occurrence of the external cause; Y99.8 Other external cause status
CPT/HCPCS: 31622; 36415; 80053; 85025; 94640; 94760; J1650; J1956; J2543; J7620; 97110; 97116; 97530; 97535; 99285-25; G0378

== ENCOUNTER 2019-08-28 15:48 | Inpatient (IN) | payer MEDICARE, BC ==
[~2019-08-28] VITALS: Ht 170.2 cm; Wt 73.9 kg
[2019-08-28 15:45] VITALS: BP 121/54
[~2019-08-28 15:48] MED LIST changes: +DOCU-109 PO; +ENOX40DI SQ; +HYDR-2761 PO; +HYDR-2868 PO; +LEVO750T31 PO
[2019-08-28 16:00] VITALS: BP 157/98
--- NOTE | 2019-08-28 16:31 | PDOC1 ---
History and Physical Date of Admission Date of Admission DATE: 08/28/19 TIME: 16:31 Past Medical History Cardiovascular: CAD, HTN, Hyperlipidemia, Other Pulmonary: COPD, Pneumonia, Other CENTRAL NERVOUS SYSTEM: Dementia, Other GI: GERD, Other Heme/Onc: Anemia NOS, Cancer Hepatobiliary: Cholelithiasis Psych: Anxiety, Addictions, Depression, Other Musculoskeletal: Osteoarthritis Renal/: No pertinent hx Past Surgical History Past Surgical History: Other Family History Family History: Alcohol Abuse, High Cholestrol, Hypertension Social History ALCOHOL: none Drugs: None Current Medications Current Medications Active Scripts Active Colace (Docusate Sodium) 100 Mg Capsule 1 Cap PO BID 30 Days Miralax (Polyethylene Glycol 3350) 17 Gm Powd.pack 1 Packet PO DAILY 2 Days dissolve in water Lovenox (Enoxaparin Sodium) 40 Mg/0.4 Ml Disp.syrin 40 Mg SQ DAILY 30 Days Hydrocodone-Apap 5-325 (Hydrocodone Bit/Acetaminophen) 1 Tab Tablet 1 Tab PO Q4H PRN 30 Days Levaquin (Levofloxacin) 750 Mg Tablet 1 Tab PO DAILY 5 Days Reported Hydralazine Hcl 25 Mg Tablet 25 Mg PO TID Celexa (Citalopram Hydrobromide) 40 Mg Tablet 40 Mg PO DAILY Miralax (Polyethylene Glycol 3350) 17 Gm Powd.pack 1 Pkt PO BID Pantoprazole Sodium (Pantoprazole Sodium) 40 Mg Tablet. 40 Mg PO DAILYAC Olanzapine 5 Mg Tablet 2.5 Mg PO DAILY Olanzapine 5 Mg Tablet 5 Mg PO DAILY Linzess (Linaclotide) 145 Mcg Capsule 145 Mcg PO DAILY07 Atorvastatin Calcium 20 Mg Tablet 20 Mg PO HS PRN Aspirin Ec (Aspirin) 81 Mg Tablet. 81 Mg PO QODAY Allergies Allergies: Coded Allergies: amlodipine (Verified Allergy, Intermediate, 12/21/18) risperidone (Verified Allergy, Intermediate, 12/21/18) Vitals Vitals Vital Signs Date Time Temp Pulse Resp B/P (MAP) Pulse Ox O2 Delivery O2 Flow Rate FiO2 08/28/19 16:00 98.4 88 18 157/98 (117) 97 Room Air 98.4 08/28/19 15:45 2.0 VTE Prophylaxis Ordered VTE Prophylaxis Devices: Yes VTE Pharmacological Prophylaxi: Yes RAMOS HERNANDEZ MD Aug 28, 2019 16:31
[2019-08-28] MEDS ORDERED: hydrALAZINE 25 MG TABLET PO SCH (17:00)
[2019-08-28] MEDS ORDERED: PANTOPRAZOLE 40 MG TABLET.DR. PO SCH (17:00)
[2019-08-28 19:00] VITALS: BP 113/70
[2019-08-28] MEDS: ENOXAPARIN 40 MG/0.4 ML SYRINGE. SQ SCH (19:34)
[2019-08-28] MEDS: POLYETHYLENE GLYCOL 3350 17 GM PACKET. PO SCH (21:27)
[2019-08-28] MEDS: DOCUSATE SODIUM 100 MG CAPSULE. PO SCH (21:27)
[2019-08-28] MEDS: ATORVASTATIN CALCIUM 20 MG TABLET PO SCH (21:27)
[2019-08-28] MEDS: LANSOPRAZOLE 30 MG TAB.RAP.DR PEG SCH (21:45)
[2019-08-28 23:00] VITALS: BP 130/70
[2019-08-29 03:00] VITALS: BP 144/84
[2019-08-29] MEDS: LANSOPRAZOLE 30 MG TAB.RAP.DR PEG SCH (06:42)
[2019-08-29 07:00] VITALS: BP 156/81
[2019-08-29] MEDS: POLYETHYLENE GLYCOL 3350 17 GM PACKET. PO SCH ×2 (07:57→21:52)
[2019-08-29] MEDS: CITALOPRAM 20 MG TABLET. PO SCH (07:57)
[2019-08-29] MEDS: LINACLOTIDE 145 MG PO SCH (07:57)
[2019-08-29] MEDS: OLANZapine 5 MG TABLET PO SCH (07:57)
[2019-08-29] MEDS ORDERED: POLYETHYLENE GLYCOL 3350 17 GM PACKET. PO SCH (09:00)
[2019-08-29] MEDS: DOCUSATE SODIUM 100 MG CAPSULE. PO SCH ×2 (09:00→21:00)
[2019-08-29] MEDS ORDERED: OLANZapine 5 MG TABLET PO SCH (09:00)
--- NOTE | 2019-08-29 10:24 | NUR ---
Colace non administered due to gel cap not able to be crushed.
[2019-08-29 11:00] VITALS: BP 170/85
--- NOTE | 2019-08-29 14:06 | HP ---
ADMIT DATE: 08/28/2019 HISTORY OF PRESENT ILLNESS: The patient is a 74-year-old male patient who was admitted to Swing Bed at [facility]. He was recently admitted to [facility] and we did consult Dr. Posey as he fell and sustained left ankle fracture. He was seen by Dr. Posey who recommended non-surgical treatment with a walking boot and therefore, the patient was transferred there to start the process of physical and occupational therapy. However, when they took his walking boot, apparently has cellulitis and there was a question of infection and a bone scan was ordered, which basically showed that there is 3-phase abnormality at the distal left ankle. These findings are nonspecific particularly in the setting of known left distal fibular fracture; however, there was suspicion of osteomyelitis and therefore, the patient was transferred to [facility] to do an MRI and to consult the Infectious Disease specialist. His lab work there showed his white cell count was normal at 6200. However, sedimentation rate was high at 68 mm per hour and C-reactive protein was high at 10.8. He was on cefazolin 1 gram IV q.8 hours and was transferred to continue with IV antibiotic and all other medications and to do the MRI and consult the Infectious Disease. PAST MEDICAL HISTORY: Significant for Mooney's palsy, severe dementia, hypercholesterolemia, chronic obstructive pulmonary disease, Pastrana's esophagus and irritable bowel syndrome has also dysphagia for which he has NELSON-PRESLEY button feeding tube placement. He has had carcinoma of the tongue, treated with surgical resection and radiation treatment. PAST SURGICAL HISTORY: Significant for tongue resection with NELSON-PRESLEY button tube feeding placement. PAST PSYCHIATRIC HISTORY: Significant for bipolar disorder, panic disorder, obsessive-compulsive disorder, depression and apparently was admitted [facility] for inpatient psychiatric stabilization in December of this year. ALLERGIES: HE IS ALLERGIC TO AMLODIPINE AND RISPERIDONE. SOCIAL HISTORY: The patient denies smoking, drinking alcohol or use any drugs. He is a full code. He lives at home with his . FAMILY HISTORY: Noncontributory. MEDICATIONS: He is currently on following medications: He is on aspirin 81 mg once a day, citalopram hydrobromide 40 mg once a day, olanzapine 5 mg daily, lansoprazole 30 mg per feeding tube daily, polyethylene glycol 17 grams twice a day, docusate sodium 100 mg twice a day, atorvastatin calcium 20 mg at bedtime, Lovenox 40 mg subcutaneously once a day, hydrocodone/APAP 5/325 one tablet every 4 hours. PHYSICAL EXAMINATION: GENERAL: On arrival to the hospital, he looked well and was clearly in no apparent respiratory distress, pale. No jaundice, cyanosis or thyromegaly. No jugular venous distention. No limb edema. VITAL SIGNS: His heart rate was 81, blood pressure was 113/70, temperature was 99.1, respiratory rate was 23, and oxygen saturation was 95% on 3 liters of oxygen. HEAD, EYES, EARS, NOSE AND THROAT: Showed normocephalic, atraumatic. NECK: Supple. HEART: Showed normal first and second heart sounds. No gallop or murmur. CHEST: Clear to auscultation. No crepitation or rhonchi. ABDOMEN: Distended, soft with a feeding tube in place. There is no guarding or rigidity. No organomegaly. All hernial orifice intact. Bowel sounds normal. NEUROLOGIC: He was awake, alert, responding appropriately. All his cranial nerves are intact. EXTREMITIES: He moves extremities without difficulty. ASSESSMENT AND PLAN: 1. Recent fracture. He was seen for spiral fracture distal fibular diaphysis extending into the lateral malleolus. There is suggestion of intraarticular extension. Dr. Posey stated that the patient has a closed nondisplaced left lateral malleolus fracture. There is a large bulla fracture blister over the lateral malleolus, which is a contraindication to any immediate surgery, but the patient has good alignment and therefore Cam walker boot for wound care was recommended and he will need some extra padding and dressing under the Cam boot to treat the fracture blister, but he can weightbear as tolerated in the Cam walker in place. Basically, we will repeat all his lab work and ordered an MRI. This is what Dr. Posey said last time when he was here, said has closed nondisplaced left lateral malleolus fracture. There is a large bulla fracture blister over the lateral malleolus, which is a contraindication to any immediate surgery. Unfortunately, no surgery is needed due to good alignment. I would recommend a Cam walker and also wound care evaluation. He will need some extra padding and dressing under the Cam walker to treat the fracture blister. He can weightbear as tolerated in the Cam walker. We will arrange for an MRI and consult also Infectious Disease to see if there is any evidence of osteomyelitis as the bone scan is very nonspecific. GERARD ANTHONY MD DR: IFTIKHAR/kirsten JOB#: [id number] / [id number]
--- NOTE | 2019-08-29 14:16 | RAD ---
MRI left ankle without contrast dated 08/29/2019. No comparison available. CLINICAL INDICATION: History of ankle fracture. Pain. TECHNIQUE: Routine multiplanar MR imaging performed. FINDINGS: There is an oblique fracture through the distal fibula fracture lines extending to the ankle mortise. There is minimal displacement at the fracture site with edema in the bone marrow. There is a small curvilinear collection that extends laterally from the fracture site along the periosteum of the distal fibula that measures about 2.2 cm craniocaudal dimension and is somewhat hyperintense in signal on T1-weighted imaging. There is mild edema within the marrow of the distal tibia posteriorly. No discrete fracture line. No apparent fracture of the medial malleolus. Signal of the calcaneus and talus are within normal limits. No osteochondral defect of the talar dome. Small tibiotalar joint effusion and small posterior subtalar joint effusion. No loose body. Distal Achilles tendon is intact. No inflammatory changes along the Achilles peritenon. The Plantar fascia is intact. Flexor and extensor tendons are intact. There is mild increased signal of the peroneus longus and peroneus brevis just beyond the retropharyngeal fibular groove with small amount of fluid along the peroneal retinaculum. No focal tear. Anterior talofibular ligament and posterior talofibular ligaments are thickened and of increased signal. Calcaneofibular ligament is ill-defined. There is thickening and abnormal signal of the tibiofibular ligaments and the posterior tibiofibular ligament may be disrupted. There is some increased T2 signal and thickening of the anterior and posterior tibiotalar fibers of the deltoid complex. There is patchy edema throughout the subcutaneous tissues. There is also edema throughout the plantar foot musculature with diffuse muscle atrophy. IMPRESSION: 1. There is an incompletely united minimally displaced fracture of the distal fibula as described above. A small curvilinear heterogeneous collection in the soft tissues adjacent to the fracture site is likely related to a small subperiosteal hematoma. 2. There is intermediate to low-grade strains of the anterior and posterior talofibular ligament and anterior tibiofibular ligament and deltoid complex. There may be a full-thickness tear of the posterior tibiofibular ligament. 3. Edema within the posterior malleolus consistent with bone contusion. No apparent tibial fracture. 4. Mild degenerative changes as described above. There is a small tibiotalar joint effusion and small posterior subtalar joint effusion. 5. Nonspecific edema throughout the subcutaneous tissues and musculature of the foot and ankle. Electronically signed by: Ervin Busby MD (08/29/2019 2:13 PM) [id number]
[2019-08-29 15:00] VITALS: BP 151/74
[2019-08-29] MEDS: ENOXAPARIN 40 MG/0.4 ML SYRINGE. SQ SCH (17:15)
[2019-08-29 19:00] VITALS: BP 144/84
[2019-08-29] MEDS: ATORVASTATIN CALCIUM 20 MG TABLET PO SCH (21:52)
[2019-08-29] MEDS: HYDROcodone/APAP 5/325MG 1 TAB TABLET PO PRN (22:10)
[2019-08-29 23:00] VITALS: BP 120/63
[2019-08-30 03:00] VITALS: BP 137/86
[2019-08-30 05:59] LABS: HEMATOCRIT 32.5 % (39.0-53.0); RED BLOOD COUNT 3.48 x10^6/uL (4.30-5.70); RED CELL DISTRIBUTION WIDTH 14.7 % (11.5-14.5); WHITE BLOOD COUNT 6.2 x10^3/uL (4.0-11.0)
[2019-08-30 06:06] LABS: ALBUMIN 2.7 g/dL (3.4-5.0); ALBUMIN/GLOBULIN RATIO 0.7 (1.0-1.7); C-REACTIVE PROTEIN 11.3 mg/L (0-3.3); CALCIUM 8.8 mg/dL (8.5-10.1); GFR 73.2; POTASSIUM 3.9 mmol/L (3.5-5.1); TOTAL BILIRUBIN 0.4 mg/dL (0.2-1.0); TOTAL PROTEIN 6.8 g/dL (6.4-8.2)
[2019-08-30 07:00] VITALS: BP 164/82
--- NOTE | 2019-08-30 08:30 | NUR ---
JESSICA following pt for dc planning. Pt is known to [facility] from previous visit and was discharged to [facility] swing bed. Pt is NPO and has been on tube feeding with Gi for a long time. Pt also uses [facility] at home. ID consulted. JESSICA will continue to follow. Addendum: 08/30/19 at 1454 by KARRI LOPEZ Pt will need to work with PT/OT prior returning to [facility]. Discussed with supervisor real estate office at [facility]. RN to order PT/OT.
[2019-08-30] MEDS ORDERED: ASPIRIN ENTERIC COATED 81 MG TABLET.DR. PO SCH (09:00)
--- NOTE | 2019-08-30 09:23 | NUR ---
Per Dr. Méndez, pt may transfer back to facility if Dr. Martin decides no treatment is needed.
[2019-08-30] MEDS: DOCUSATE SODIUM 100 MG CAPSULE. PO SCH ×2 (09:36→20:43)
[2019-08-30] MEDS: LINACLOTIDE 145 MG PO SCH (09:36)
[2019-08-30] MEDS: HYDROcodone/APAP 5/325MG 1 TAB TABLET PO PRN ×2 (09:37→20:42)
[2019-08-30] MEDS: CITALOPRAM 20 MG TABLET. PO SCH (09:37)
[2019-08-30] MEDS: LANSOPRAZOLE 30 MG TAB.RAP.DR PEG SCH (09:37)
[2019-08-30] MEDS: OLANZapine 5 MG TABLET PO SCH (09:37)
[2019-08-30] MEDS: POLYETHYLENE GLYCOL 3350 17 GM PACKET. PO SCH ×2 (09:38→20:42)
--- NOTE | 2019-08-30 09:40 | PN ---
DATE: 08/30/2019 SUBJECTIVE: The patient is resting flat in bed, in no apparent distress. On questioning him, he is complaining of severe pain in his back and abdomen. Although he did have bowel movement yesterday, we asked the nurse to give him pain medication, he declined. He has had an MRI done yesterday of his left ankle and the MRI showed that he has an incompletely united minimal displaced fracture of the distal fibula. He has also some intermediate to low-grade strains of the anterior and posterior talofibular ligament, anterior tibiofibular ligament and deltoid complex and there may be a full-thickness tear of the posterior tibiofibular ligament. There is also edema within the posterior malleolus consistent with bone contusion. No apparent tibial fracture. Mild degenerative changes as described. There is a small tibiotalar joint effusion and a small posterior subtalar joint effusion. Nonspecific edema throughout the subcutaneous tissue musculature of the foot and ankle. The patient remains afebrile. His white cell count is normal at 6200. He was started on IV cefazolin by his primary care physician, Dr. Desouza. PHYSICAL EXAMINATION: GENERAL: When I examined him this morning, he looked well and was clearly in no apparent respiratory distress, slightly pale. No jaundice, cyanosis, or thyromegaly. No jugular venous distension. No lower limb edema. VITAL SIGNS: His heart rate was 75, blood pressure was 164/82, temperature was 97.5, respiratory rate was 18 and oxygen saturation was 98% on 2 liters of oxygen. HEAD, EYES, EARS, NOSE, THROAT: Showed normocephalic, atraumatic. NECK: Supple. HEART: Showed normal first and second heart sounds. No gallop, rub, or murmur. CHEST: Clear to auscultation. No crepitation or rhonchi. ABDOMEN: Distended, soft, nontender. No guarding or rigidity. No organomegaly. All hernial orifices intact. Bowel sounds normal. NEUROLOGIC: He was awake, alert, responding appropriately. All cranial nerves are intact. He moves his extremities without difficulty. His intake was 240, output was 700. LABORATORY DATA: As of this morning, his white cell count was 6200, hemoglobin 11, hematocrit 32, MCV 93, and platelet count 218,000. Serum sodium was 136, potassium 3.9, chloride 100, bicarbonate 30, anion gap of 6, BUN 23, creatinine 1, estimated GFR was 73 mL per minute. His glucose was 63. Calcium was 8.8. Total bilirubin, AST, ALT, alkaline phosphatase were normal. His C-reactive protein was 11.3 mg/dL. Total protein 6.8, albumin 2.7. ASSESSMENT: In summary, this is a 74-year-old male patient with fractured left ankle joint, who was transferred from [facility] bed with possible osteomyelitis, had a bone scan done there, which was nonspecific and MRI also did not mention any osteomyelitis in particular. My plan is to await the Infectious Disease specialist and if she thinks that there is no need for any treatment, I will discharge him back to swing bed at [facility]. GERARD ANTHONY MD DR: IFTIKHAR/kirsten JOB#: [id number] / [id number]
[2019-08-30 11:00] VITALS: BP 110/65
[2019-08-30 15:00] VITALS: BP 126/63
[2019-08-30] MEDS: ENOXAPARIN 40 MG/0.4 ML SYRINGE. SQ SCH (16:47)
[2019-08-30 19:00] VITALS: BP 153/81
[2019-08-30] MEDS: ATORVASTATIN CALCIUM 20 MG TABLET PO SCH (20:43)
[2019-08-30 23:00] VITALS: BP 165/84
--- NOTE | 2019-08-30 23:21 | CONS ---
DATE OF CONSULTATION: 08/30/2019 REFERRING PHYSICIAN: Dr. Méndez. REASON FOR CONSULTATION: Possible left ankle osteomyelitis. HISTORY OF PRESENT ILLNESS: A 74-year-old male who was recently discharged from [facility] on 08/21/2019 after he sustained a nondisplaced left ankle fracture, for which he was started on Cam boot in place with AKASH to swing bed at [facility]. He was evaluated by Dr. Posey and was recommended nonsurgical treatment. The patient was undergoing PT and OT at swing bed at [place]. He had developed a blister, apparently had cellulitis and there was a question of infection. A bone scan was ordered per records, which basically showed a 3-phase abnormality at the distal left ankle. I do not have the results on the same. These findings were nonspecific, so the patient was transferred here to get an MRI done and ID consultation. White count here was 6.2, hemoglobin of 11.0, creatinine of 1.0, C-reactive protein of 11.3. ESR of 50. The patient underwent MRI of the left ankle without contrast, which showed incompletely united minimally displaced fracture of distal fibula. A small curvilinear heterogeneous collection in the soft tissue adjacent to the fracture site is likely related to small periosteal hematoma. There is intermediate to low-grade strains of the anterior and posterior talofibular ligament and the anterior tibiofibular ligament and deltoid complex. There may be full thickness tear of the posterior tibiofibular ligament, edema within the posterior malleolus consistent with bone contusion, no apparent tibial fracture, mild degenerative changes as described above. There is a small tibiotalar joint effusion and small posterior subtalar joint effusion, nonspecific edema throughout the subcutaneous tissue and musculature of the foot and ankle. The patient was started on IV cefazolin. ID consult has been requested for possible osteomyelitis. Today, the patient complains of pain in the left ankle. He denies any fevers, chills, nausea, vomiting, diarrhea, abdominal pain. PAST MEDICAL HISTORY: Severe dementia, COPD, lumbar spinal stenosis, hyperlipidemia, Mooney's palsy, Pastrana's esophagus, irritable bowel syndrome, dysphagia, status post PEG tube placement, carcinoma of the lung, status post surgical resection and oncologic treatment, history of OCD, bipolar disorder, depression, panic disorder. ALLERGIES: AMLODIPINE, RISPERIDONE. SOCIAL HISTORY: Denies smoking, ETOH or illicit drug use. Lives at home with his . FAMILY HISTORY: As per HPI. CURRENT MEDICATION: IV cefazolin. Other medications reviewed in medication list. PHYSICAL EXAMINATION: VITAL SIGNS: Temperature 97.5, pulse 75, respiratory rate 18, blood pressure 164/82, oxygen saturation 98% on 2 liters by nasal cannula. GENERAL: Alert, oriented male lying in bed comfortably, in no acute distress, nontoxic. HEENT: Normocephalic, atraumatic, anicteric. NECK: Supple. LUNGS: Clear bilaterally. HEART: S1, S2. No gallops or murmurs. ABDOMEN: Soft, nondistended. Feeding tube in place. No surrounding erythema or redness. Bowel sounds present. NEUROLOGIC: Alert and oriented x 3, grossly nonfocal. EXTREMITIES: Ankle brace taken down. Ankle is diffusely swollen, dry skin. Ankle is tender. No sinus drainage, redness is improving. No warmth. There is ecchymosis mainly on the lateral aspect of the foot and appears to be resolving hematoma. Dry scab present over the right knee, muscular atrophy noted. Changes suggestive of DJD present. DERMATOLOGIC: Warm, dry. No generalized rash, dry skin, except for above changes over the left lower extremity. NEUROLOGIC: Right hand tremor, appears weak, but able to move his 4 extremities. PSYCHIATRIC: Cooperative, appropriate mood and affect. MUSCULOSKELETAL: Heberden's node, flexion deformity of the right hand, left ankle as above. LABORATORY DATA: WBC 6.2, hemoglobin 11.0, hematocrit 32.5, platelets 318. ESR 50. Sodium 136, potassium 3.9, chloride 100, bicarbonate 30, BUN 23, creatinine 1.0, was 1.4 before, glucose 63, calcium 8.8. C-reactive protein 11.3. IMPRESSION: Closed nondisplaced left lateral malleolus fracture July last 2018, admitted with large bolus a fracture blister over the lateral malleolus with concerns of cellulitis/osteomyelitis. The patient was seen by Dr. Posey last admission and there was no surgery needed due to good alignment. The patient underwent Cam walker at swing bed with PT and OT and was noticed to have cellulitis and Infectious Disease consult has been requested to rule out possible osteomyelitis. RECOMMENDATIONS: There is no clinical evidence of osteomyelitis on today's exam. The patient may have mild superficial cellulitis overlying his hematoma from fracture blister with a friction from the Cam boot. It appears to be resolving on current treatment. Would continue IV cefazolin for now and will likely deescalate to oral antibiotics in a couple of days. Continue local wound care with wound padding as you are doing right now. Further treatment of fracture per Orthopedics and pain control per primary care. Thank you, Dr. Méndez, for consulting Infectious Disease to participate in this patient's care. If you have any questions, do not hesitate to contact. We will follow along with you. KATIE YOON MD DR: RICKY/kirsten JOB#: [id number] / [id number]
[2019-08-31 03:00] VITALS: BP 127/64
[2019-08-31 07:00] VITALS: BP 156/80
--- NOTE | 2019-08-31 08:38 | SNU/HH DC ---
DISCHARGE ORDERS DISCHARGE INFORMATION: DISCHARGE DATE: Aug 31, 2019 FINAL DIAGNOSIS closed left ankle fracture left lower extremity cellulitis CONDITION ON DISCHARGE: Stable CODE STATUS: Code Status: Full PENITENTIARY: SNF STAY <30 DAYS: Yes POST DISCHARGE ORDERS: ACTIVITY ORDERS: Resume previous activity, Activity as tolerated WEIGHT BEARING STATUS: As tolerated DIET AFTER DISCHARGE: WOUND/INCISION CARE: Change dressing, Reinforce dressing PRN TREATMENT/EQUIPMENT ORDERS: ADAPTIVE EQUIPMENT NEEDED: None RESPIRATORY EQUIPMENT NEEDED: Oxygen Physical Therapy For: Evalulation/Treatment Occupational Therapy For: Evaluation/Treatment DISCHARGE MEDICATIONS: Home Meds Active Scripts Docusate Sodium (COLACE) 100 Mg Capsule, 1 CAP PO BID for CONSTIPATION for 30 Days, #60 CAP 0 Refills Prov:GERARD ANTHONY MD 08/21/19 Polyethylene Glycol 3350 (MIRALAX) 17 Gm Powd.pack, 1 PACKET PO DAILY for constipation for 2 Days, #2 PACKET 0 Refills dissolve in water Prov:GERARD ANTHONY MD 08/21/19 Enoxaparin Sodium (LOVENOX) 40 Mg/0.4 Ml Disp.syrin, 40 MG SQ DAILY for ANTI- COAGULANT for 30 Days, #30 DIS.SYR Prov:GERARD ANTHONY MD 08/21/19 Hydrocodone Bit/Acetaminophen (HYDROCODONE-APAP 5-325 ) 1 Tab Tablet, 1 TAB PO Q4H PRN for PAIN for 30 Days, #180 TAB 0 Refills Prov:GERARD ANTHONY MD 08/21/19 Levofloxacin (LEVAQUIN) 750 Mg Tablet, 1 TAB PO DAILY for UTI for 5 Days, #5 TAB 0 Refills Prov:GERARD ANTHONY MD 08/21/19 Reported Medications Hydralazine Hcl (HYDRALAZINE HCL) 25 Mg Tablet, 25 MG PO TID for HYPERTENSION, TAB 08/17/19 Citalopram Hydrobromide (CELEXA) 40 Mg Tablet, 40 MG PO DAILY for DEPRESSION, TAB 08/17/19 Polyethylene Glycol 3350 (MIRALAX) 17 Gm Powd.pack, 1 PKT PO BID for constipation, PKT 05/07/19 Pantoprazole Sodium (PANTOPRAZOLE SODIUM ) 40 Mg Tablet.dr, 40 MG PO DAILYAC for GERD, TAB 05/07/19 Olanzapine (OLANZAPINE) 5 Mg Tablet, 2.5 MG PO DAILY for mental disorders, TAB 05/07/19 Olanzapine (OLANZAPINE) 5 Mg Tablet, 5 MG PO DAILY for mental disorders, TAB 05/07/19 Linaclotide (LINZESS) 145 Mcg Capsule, 145 MCG PO DAILY07 for irritable bowel, CAP 12/19/18 Atorvastatin Calcium (ATORVASTATIN CALCIUM) 20 Mg Tablet, 20 MG PO HS PRN for cholesterol, #30 TAB 0 Refills 12/19/18 Aspirin (ASPIRIN EC) 81 Mg Tablet., 81 MG PO QODAY for blood, TAB.SR 12/19/18 GERARD ANTHONY MD Aug 31, 2019 08:38
[2019-08-31] MEDS ORDERED: DOCUSATE 100 MG/10 ML SOLUTION. FT SCH (09:00)
[2019-08-31] MEDS: OLANZapine 5 MG TABLET PO SCH (09:27)
[2019-08-31] MEDS: POLYETHYLENE GLYCOL 3350 17 GM PACKET. PO SCH (09:28)
[2019-08-31] MEDS: LANSOPRAZOLE 30 MG TAB.RAP.DR PEG SCH (09:28)
[2019-08-31] MEDS: CITALOPRAM 20 MG TABLET. PO SCH (09:28)
[2019-08-31] MEDS: LINACLOTIDE 145 MG PO SCH (09:32)
[2019-08-31 11:00] VITALS: BP 121/66
--- NOTE | 2019-08-31 12:49 | DS ---
DATE OF DISCHARGE: 08/31/2019 HOSPITAL COURSE: The patient is a 74-year-old male patient who fell sustaining closed left ankle fracture for which he was admitted to this hospital and was seen by Dr. Stern who recommended conservative treatment with a Cam boot. He was transferred to Swing Bed at [facility] and there he developed erythema and a bone scan was done that was nonspecific and the treating physician was concerned about osteomyelitis and therefore he was admitted to [facility]. We did an MRI of his left lower extremity, which showed no evidence of osteomyelitis. He was seen in consultation by the Infectious Disease who also did not feel that the patient has any evidence of osteomyelitis and that the patient can be treated for his superficial cellulitis with the current treatment with cefazolin and a decision was made to transfer him back to a Swing Bed at [facility] to continue the process of rehabilitation. PHYSICAL EXAMINATION: GENERAL: When I saw him today, he looked well and was clearly in no apparent respiratory distress, pale, but no jaundice, cyanosis or thyromegaly. No jugular venous distention. No limb edema. VITAL SIGNS: Her heart rate was 77, blood pressure 156/80, temperature was 97.4, respiratory rate was 18 and oxygen saturation was 98% on 2 liters of oxygen. HEAD, EYES, EARS, NOSE AND THROAT: Showed normocephalic, atraumatic. NECK: Supple. HEART: Showed normal first and second heart sounds. No gallop or murmur. CHEST: Clear to auscultation. No crepitation or rhonchi. ABDOMEN: Distended, soft, nontender. No guarding or rigidity. No organomegaly. All hernial orifice intact. Bowel sounds normal. He has Brody-Mckinney button through which he gets his tube feeding. NEUROLOGIC: He is awake, alert, responding appropriately. All cranial nerves are intact. He moves extremities without difficulty. He has a Cam boot for his left ankle fracture. His intake was incompletely recorded, output was 1250. LABORATORY DATA: Showed a serum sodium 136, potassium 3.9, chloride 100, bicarbonate 30, anion gap of 6, BUN 23, creatinine 1, estimated GFR was 73 mL per minute, his glucose was 63, calcium was 8.8. Total bilirubin, AST, ALT, alkaline phosphatase were normal. His total protein was 6.8, albumin 2.7. C-reactive protein was 11.3, white cell count was 6200, hemoglobin 11, hematocrit 33, MCV 93 and platelet count 318,000. His sedimentation rate was 50 mmHg. DISCHARGE MEDICATIONS: He was discharged to Swing Bed at [facility] to continue aspirin 81 mg once a day, atorvastatin, calcium 20 mg at bedtime, citalopram hydrobromide 40 mg daily, Colace 100 mg twice a day, Lovenox 40 mg subcutaneously daily, hydralazine 25 mg 3 times a day, hydrocodone/APAP 5/325 one tablet every 4 hours, levofloxacin for Levaquin should be discontinued. He is on Linzess 145 mcg daily, olanzapine 5 mg daily, olanzapine 2.5 mg daily, Protonix 40 mg once a day, polyethylene glycol 17 g twice a day. FINAL DISCHARGE DIAGNOSES: 1. Closed left ankle fracture without evidence of any osteomyelitis. 2. Left lower extremity cellulitis for which he continued to be on IV Ancef. Other medical problems include Mooney's palsy, severe dementia, hypercholesterolemia, chronic obstructive pulmonary disease, Pastrana's esophagus, irritable bowel syndrome, dysphagia, for which has Brody-Mckinney button feeding tube, has carcinoma of the tongue, treated with surgical resection and radiation treatment. GERARD ANTHONY MD DR: IFTIKAHR/kirsten JOB#: [id number] / [id number]
--- NOTE | 2019-08-31 13:12 | PDOC ---
Infectious Disease Note Subjective Subjective Wants to know when nurse is going to feed him, says he's hungry Denies pain No fevers Vital Sign Vital Signs Vital Signs Date Time Temp Pulse Resp B/P (MAP) Pulse Ox O2 Delivery O2 Flow Rate FiO2 08/31/19 11:00 97.4 74 18 121/66 (84) 99 Nasal Cannula 2.0 97.4 Physical Exam PHYSICAL EXAM GENERAL: Propped up in bed, alert, NAD HEENT: Oral cavity dry NECK: Supple. LUNGS: Clear bilaterally. 2L O2 HEART: S1, S2. No gallops or murmurs. ABDOMEN: Soft, nondistended. Brody-mckinney button without signs of complications. : Bolden EXT: No gross edema or cyanosis. Left cam boot in place NEUROLOGIC: Alert, coop SKIN: Warm, dry. No generalized rashPIV Objective Assessment Cellulitis left lower extremity. MRI neg osteo Closed nondisplaced left lateral malleolus fracture July Dementia Dysphagia w/ Brody-Mckinney button for tube feedings h/o carcinoma of the tongue, treated with surgical resection and radiation treatment. Plan Plan of Care Cefazolin Anticipating discharge soon D/w nursing D/c Cefazolin and change to Kelfex for 7 days Attending Co-Sign Attending Co-Sign The patient was seen and interviewed as well as examined at the bedside. The chart was reviewed. The case was discussed. Agree with the plan of care. EFE VICTOR APRN Aug 31, 2019 13:12 TALAT PAGAN MD Aug 31, 2019 16:43
[2019-08-31 15:00] VITALS: BP 126/60
[2019-08-31] MEDS ORDERED: CEPHALEXIN 250 MG CAPSULE. PO SCH (17:00)
[2019-08-31] MEDS: ENOXAPARIN 40 MG/0.4 ML SYRINGE. SQ SCH (18:03)
[2019-08-31 19:00] VITALS: BP 137/63
--- NOTE | 2019-08-31 19:47 | NUR ---
PATIENT ALERT AND VERBALLY RESPONSIVE AND AWAITING [facility] TO PICK HIM UP AND TRANSPORT TO [facility]. PATIENT ALLOWED THIS BUSINESS SOLUTION ANALYST TO TALE PICTURE OF LEFT THIGH SKIN TEAR, BUT REFUSED TO HAVE ICTURE TAKEN OF LEFT FOOT BLOOD BLISTER.
--- NOTE | 2019-08-31 20:43 | NUR ---
Discharge Note: JUANA BARBER J5 [facility] Discharge instructions and discharge home medications reviewed with Patient and a copy given. All questions have been answered and understanding verbalized. Discontinued lines and drains: IV discharge prior to discharge [facility] with transport services.
== END 2019-08-31 20:46 | DRG 563 ==
LOC: 5 SOUTH 15:48
PROVIDERS: ADMIT Family Medicine; ATTEND Internal Medicine
DX: S82.65XA Nondisplaced fracture of lateral malleolus of left fibula, initial encounter for closed fracture (principal); L03.116 Cellulitis of left lower limb; I25.10 Atherosclerotic heart disease of native coronary artery without angina pectoris; I10 Essential (primary) hypertension; J44.9 Chronic obstructive pulmonary disease, unspecified; F03.90 Unspecified dementia, unspecified severity, without behavioral disturbance, psychotic disturbance, mood disturbance, and anxiety; K21.9 Gastro-esophageal reflux disease without esophagitis; F31.9 Bipolar disorder, unspecified; F42.9 Obsessive-compulsive disorder, unspecified; K58.9 Irritable bowel syndrome, unspecified; F41.0 Panic disorder [episodic paroxysmal anxiety]; F41.9 Anxiety disorder, unspecified; M19.90 Unspecified osteoarthritis, unspecified site; E78.00 Pure hypercholesterolemia, unspecified; Y93.89 Activity, other specified; Y92.89 Other specified places as the place of occurrence of the external cause; Y99.8 Other external cause status; E78.5 Hyperlipidemia, unspecified; Z85.118 Personal history of other malignant neoplasm of bronchus and lung; Z85.810 Personal history of malignant neoplasm of tongue; Z93.1 Gastrostomy status; Z88.8 Allergy status to other drugs, medicaments and biological substances; Z82.49 Family history of ischemic heart disease and other diseases of the circulatory system
CPT/HCPCS: 36415; 73721; 80053; 85027; 85651; 86140; J0696; J1650; G0378